=== PATIENT | male | born 1975 | race African-American/Black ===

== ENCOUNTER 2016-10-07 20:20 | Emergency (ER) | payer MEDICAID, OTHER ==
[~2016-10-07] VITALS: Ht 185.4 cm; Wt 220.0 kg
[~2016-10-07 20:20] MED LIST: BENZ1TAB10 PO; DIVA500T52 PO; HALO10 PO; HYDR25TA PO
[2016-10-07 21:12] LABS: BASOPHILS # (AUTO) 0.05 K/uL (0.00-0.20); EOSINOPHILS # (AUTO) 0.14 K/uL (0.00-0.70); EOSINOPHILS % (AUTO) 2.69 % (1.0-6.0); HEMOGLOBIN 14.5 g/dL (13.5-17.5); LYMPHOCYTES # (AUTO) 1.8 K/uL (1.0-4.8); LYMPHOCYTES % (AUTO) 35.8 % (22.0-44.0); MEAN CORPUSCULAR HEMOGLOBIN 29.4 pg (26.0-34.0); MEAN CORPUSCULAR VOLUME 89 fL (80-100); MONOCYTES # (AUTO) 0.3 K/uL (0.1-1.0); MONOCYTES % (AUTO) 5.6 % (2.0-9.0); NEUTROPHILS # (AUTO) 2.8 K/uL (1.8-7.7); NEUTROPHILS % (AUTO) 54.9 % (40.0-70.0); PLATELET COUNT (AUTO) 251 K/uL (150-450); RED BLOOD CELL COUNT(AUTO) 4.93 MIL/uL (4.50-5.90); RED CELL DISTRIBUTION WIDTH 16.2 % (11.5-14.5); WHITE BLOOD COUNT (AUTO) 5.1 K/uL (4.5-11.0)
[2016-10-07 21:28] LABS: ALANINE AMINOTRANSFERASE 25 U/L (12-78); ALBUMIN 3.7 g/dL (3.4-5.0); ANION GAP 11 mmol/L (8-16); ASPARTATE AMINOTRANSFERASE 15 U/L (15-37); BILIRUBIN,TOTAL 0.6 mg/dL (0.1-1.0); CALCIUM, TOTAL 9.4 mg/dL (8.8-10.5); CARBON DIOXIDE 26 mmol/L (22-29); CHLORIDE 107 mmol/L (98-107); CREATININE 1.04 mg/dL (0.60-1.30); GLOMERULAR FILTR. RATE CALC > 60 mL/min (>60); POTASSIUM 4.1 mmol/L (3.5-5.1); SODIUM SERUM 144 mmol/L (136-145); TOTAL PROTEIN, SERUM 7.6 g/dL (6.4-8.2); UREA NITROGEN, BLOOD 12 mg/dL (7-18)
[2016-10-07 21:53] LABS: VALPROIC ACID < 3 mcg/mL (50-100)
[2016-10-07] MEDS ORDERED: HALOPERIDOL 5 MG TABLET PO ONE (23:00)
[2016-10-07 23:56] VITALS: BP 135/74
== END 2016-10-08 00:08 | disposition home or self-care (01) ==
LOC: EMS 20:21
DX: F25.9 Schizoaffective disorder, unspecified (principal); F12.90 Cannabis use, unspecified, uncomplicated; Z91.14 Patient's other noncompliance with medication regimen; Z88.8 Allergy status to other drugs, medicaments and biological substances
CPT/HCPCS: 36415; 80053; 80164; 85025; 99284; G0480

== ENCOUNTER 2017-01-07 10:20 | Emergency (ER) | payer OTHER ==
[~2017-01-07] VITALS: Ht 190.5 cm; Wt 136.4 kg
[2017-01-07 10:30] VITALS: BP 127/53
== END 2017-01-07 11:06 | disposition home or self-care (01) ==
LOC: EMS 10:22
DX: R21 Rash and other nonspecific skin eruption (principal); F12.90 Cannabis use, unspecified, uncomplicated; I10 Essential (primary) hypertension; F17.200 Nicotine dependence, unspecified, uncomplicated; Z88.8 Allergy status to other drugs, medicaments and biological substances
CPT/HCPCS: 99283

== ENCOUNTER 2017-04-09 08:39 | Inpatient (IN) | payer MEDICAID, OTHER ==
[~2017-04-09] VITALS: Ht 190.5 cm; Wt 99.9 kg
[~2017-04-09 08:39] MED LIST changes: +FLUO15CR2 TP; -HYDR25TA PO
[2017-04-09 09:28] LABS: BASOPHILS # (AUTO) 0.03 K/uL (0.00-0.20); BASOPHILS % (AUTO) 0.5 % (0.0-2.0); EOSINOPHILS # (AUTO) 0.05 K/uL (0.00-0.70); EOSINOPHILS % (AUTO) 0.92 % (1.0-6.0); HEMOGLOBIN 13.7 g/dL (13.5-17.5); LYMPHOCYTES # (AUTO) 1.7 K/uL (1.0-4.8); LYMPHOCYTES % (AUTO) 29.9 % (22.0-44.0); MEAN CORPUSCULAR HEMOGLOBIN 31.4 pg (26.0-34.0); MEAN CORPUSCULAR HGB CONC 34.2 G/dL (31.0-37.0); MEAN CORPUSCULAR VOLUME 92 fL (80-100); MONOCYTES # (AUTO) 0.4 K/uL (0.1-1.0); MONOCYTES % (AUTO) 7.1 % (2.0-9.0); NEUTROPHILS # (AUTO) 3.4 K/uL (1.8-7.7); NEUTROPHILS % (AUTO) 61.5 % (40.0-70.0); PLATELET COUNT (AUTO) 269 K/uL (150-450); RED BLOOD CELL COUNT(AUTO) 4.36 MIL/uL (4.50-5.90); RED CELL DISTRIBUTION WIDTH 15.2 % (11.5-14.5); WHITE BLOOD COUNT (AUTO) 5.6 K/uL (4.5-11.0)
[2017-04-09 09:39] LABS: ANION GAP 8 mmol/L (8-16); CALCIUM, TOTAL 9.5 mg/dL (8.8-10.5); CARBON DIOXIDE 28 mmol/L (22-29); CHLORIDE 105 mmol/L (98-107); CREATININE 1.03 mg/dL (0.60-1.30); GLOMERULAR FILTR. RATE CALC > 60 mL/min (>60); SODIUM SERUM 141 mmol/L (136-145); UREA NITROGEN, BLOOD 10 mg/dL (7-18)
[2017-04-09 09:54] LABS: ALANINE AMINOTRANSFERASE 25 U/L (12-78); ALBUMIN 3.9 g/dL (3.4-5.0); ASPARTATE AMINOTRANSFERASE 20 U/L (15-37); BILIRUBIN,TOTAL 0.5 mg/dL (0.1-1.0)
[2017-04-09] MEDS ORDERED: HALOPERIDOL 5 MG TABLET PO ONE ×2 (13:15)
[2017-04-09] MEDS ORDERED: LORazepam 2 MG TABLET PO ONE (13:15)
[2017-04-09] MEDS ORDERED: DiphenhydrAMINE HCL 25 MG CAPSULE PO ONE (13:15)
[2017-04-09] MEDS ORDERED: BENZTROPINE MESYLATE 1 MG TABLET PO ONE (13:15)
[2017-04-09] MEDS ORDERED: BETAMETHASONE VAL 0.1% 15 GM OINTMENT TP ONE (13:15)
[2017-04-09] MEDS ORDERED: SULFAMETHOX/TRIMETH DS 800-160 MG/TABLET PO ONE (13:15)
[2017-04-09] MEDS ORDERED: INFLUENZA VIRUS VACCINE QVS 2017-18 (3YR+)/PF 60 MCG/0.5 ML SYRINGE IM ONE (19:00)
[2017-04-09] MEDS: BENZTROPINE MESYLATE 1 MG TABLET PO SCH (20:52)
[2017-04-09] MEDS: HALOPERIDOL 10 MG TABLET PO SCH (20:52)
[2017-04-09] MEDS: DIVALPROEX SODIUM 500 MG ER TABLET PO SCH (20:52)
[2017-04-09 21:38] VITALS: BP 150/94
[2017-04-09 21:53] VITALS: BP 150/94
[2017-04-10 07:02] LABS: CHOL/HDL RATIO 3.4 (4.2-7.3)
[2017-04-10] MEDS ORDERED: ONDANSETRON HCL 4 MG TABLET PO PRN (07:15)
[2017-04-10] MEDS ORDERED: ACETAMINOPHEN 325 MG TABLET PO PRN (07:15)
[2017-04-10] MEDS ORDERED: CloNIDine HCL 0.1 MG TABLET PO PRN (07:15)
[2017-04-10] MEDS ORDERED: PETROLATUM,WHITE 71 GM JELLY TP PRN (07:15)
[2017-04-10] MEDS ORDERED: IBUPROFEN 600 MG TABLET PO PRN (07:15)
[2017-04-10] MEDS ORDERED: LOPERAMIDE HCL 2 MG CAPSULE PO PRN (07:15)
[2017-04-10] MEDS ORDERED: MAGNESIUM HYDROXIDE SUSPENSION 30 ML UDCUP PO PRN (07:15)
[2017-04-10] MEDS ORDERED: MAG HYDROX/AL HYDROX/SIMETH ES 30 ML SUSPENSION UDCUP PO PRN (07:15)
[2017-04-10] MEDS ORDERED: BACITRACIN 28.4 GM OINTMENT TP PRN (07:15)
[2017-04-10] MEDS ORDERED: ALBUTEROL SULFATE HFA 90 MCG/PUFF 8 GM INHALER IH PRN (07:15)
[2017-04-10] MEDS ORDERED: BENZOCAINE/MENTHOL LOZENGE [8 LOZENGES/PACKET] MM PRN (07:30)
[2017-04-10 08:16] VITALS: BP 120/89
[2017-04-10] MEDS: CHOLECALCIFEROL (VIT D3) 1,000 UNITS TABLET PO SCH (09:42)
[2017-04-10] MEDS: BENZTROPINE MESYLATE 1 MG TABLET PO SCH ×2 (09:43→17:21)
[2017-04-10 16:53] VITALS: BP 132/83
[2017-04-10] MEDS: DIVALPROEX SODIUM 500 MG ER TABLET PO SCH (20:21)
[2017-04-10] MEDS: HALOPERIDOL 10 MG TABLET PO SCH (20:21)
[2017-04-11 08:00] VITALS: BP 150/97
[2017-04-11] MEDS: CHOLECALCIFEROL (VIT D3) 1,000 UNITS TABLET PO SCH (08:57)
[2017-04-11] MEDS: BENZTROPINE MESYLATE 1 MG TABLET PO SCH ×2 (08:57→18:08)
[2017-04-11] MEDS: HALOPERIDOL 5 MG TABLET PO PRN (10:18)
[2017-04-11] MEDS: LORazepam 2 MG TABLET PO PRN (10:18)
[2017-04-11] MEDS: DIVALPROEX SODIUM 500 MG ER TABLET PO SCH (20:17)
[2017-04-11] MEDS: HALOPERIDOL 10 MG TABLET PO SCH (20:17)
[2017-04-12 08:22] VITALS: BP 136/88
[2017-04-12] MEDS: CHOLECALCIFEROL (VIT D3) 1,000 UNITS TABLET PO SCH (08:33)
[2017-04-12] MEDS: BENZTROPINE MESYLATE 1 MG TABLET PO SCH ×2 (08:33→16:39)
[2017-04-12] MEDS: LISINOPRIL 10 MG TABLET PO SCH (08:33)
[2017-04-12] MEDS: NICOTINE 21 MG/24 HOUR PATCH TD SCH (13:03)
[2017-04-12] MEDS: HALOPERIDOL 10 MG TABLET PO SCH (20:09)
[2017-04-12] MEDS: DIVALPROEX SODIUM 500 MG ER TABLET PO SCH (20:10)
[2017-04-12 22:36] VITALS: BP 132/90
[2017-04-12] MEDS: ZOLPIDEM TARTRATE 10 MG TABLET PO PRN (22:45)
[2017-04-13] MEDS: LORazepam 2 MG TABLET PO PRN ×2 (04:03→11:08)
[2017-04-13 09:00] VITALS: BP 135/96
[2017-04-13] MEDS: HYDROCORTISONE 2.5% 30 GM CREAM TP SCH (09:20)
[2017-04-13] MEDS: NICOTINE 21 MG/24 HOUR PATCH TD SCH (09:21)
[2017-04-13] MEDS: LISINOPRIL 10 MG TABLET PO SCH (09:21)
[2017-04-13] MEDS: CHOLECALCIFEROL (VIT D3) 1,000 UNITS TABLET PO SCH (09:21)
[2017-04-13] MEDS: BENZTROPINE MESYLATE 1 MG TABLET PO SCH ×2 (09:21→17:20)
[2017-04-13] MEDS: HALOPERIDOL 5 MG TABLET PO PRN (11:08)
[2017-04-13] MEDS: DIVALPROEX SODIUM 500 MG ER TABLET PO SCH (21:00)
[2017-04-13] MEDS: ZOLPIDEM TARTRATE 10 MG TABLET PO PRN (21:01)
[2017-04-13] MEDS: HALOPERIDOL 10 MG TABLET PO SCH (21:01)
[2017-04-14 08:00] VITALS: BP 123/63
[2017-04-14] MEDS: NICOTINE 21 MG/24 HOUR PATCH TD SCH (08:13)
[2017-04-14] MEDS: HALOPERIDOL 5 MG TABLET PO PRN (08:13)
[2017-04-14] MEDS: LISINOPRIL 10 MG TABLET PO SCH (08:13)
[2017-04-14] MEDS: CHOLECALCIFEROL (VIT D3) 1,000 UNITS TABLET PO SCH (08:13)
[2017-04-14] MEDS: LORazepam 2 MG TABLET PO PRN ×2 (08:13→16:18)
[2017-04-14] MEDS: BENZTROPINE MESYLATE 1 MG TABLET PO SCH ×2 (08:13→16:17)
[2017-04-14] MEDS: HYDROCORTISONE 2.5% 30 GM CREAM TP SCH (08:14)
[2017-04-14 16:40] VITALS: BP 126/77
[2017-04-14] MEDS: DIVALPROEX SODIUM 500 MG ER TABLET PO SCH (20:46)
[2017-04-14] MEDS: HALOPERIDOL 10 MG TABLET PO SCH (20:47)
[2017-04-14] MEDS: ZOLPIDEM TARTRATE 10 MG TABLET PO PRN (21:11)
[2017-04-15 08:00] VITALS: BP 129/96
[2017-04-15] MEDS: BENZTROPINE MESYLATE 1 MG TABLET PO SCH (08:22)
[2017-04-15] MEDS: LISINOPRIL 10 MG TABLET PO SCH (08:23)
[2017-04-15] MEDS: CHOLECALCIFEROL (VIT D3) 1,000 UNITS TABLET PO SCH (08:23)
[2017-04-15] MEDS: NICOTINE 21 MG/24 HOUR PATCH TD SCH (09:00)
[2017-04-15] MEDS: HYDROCORTISONE 2.5% 30 GM CREAM TP SCH (09:00)
[2017-04-15] MEDS ORDERED: HALO10 PO (14:56)
[2017-04-15] MEDS ORDERED: DIVA500T52 PO (14:56)
[2017-04-15] MEDS ORDERED: BENZ1TAB10 PO (14:56)
[2017-04-15] MEDS ORDERED: VITAD1000 PO (15:00)
[2017-04-15] MEDS ORDERED: LISI-661 PO (15:00)
== END 2017-04-15 15:30 | disposition home or self-care (01) | DRG 750 ==
LOC: EEVIPCON 08:41 → EMS 08:41 → 3EC 16:50
DX: F20.0 Paranoid schizophrenia (principal); L03.115 Cellulitis of right lower limb; R45.851 Suicidal ideations; I10 Essential (primary) hypertension; E55.9 Vitamin D deficiency, unspecified; E66.9 Obesity, unspecified; F12.90 Cannabis use, unspecified, uncomplicated; F17.210 Nicotine dependence, cigarettes, uncomplicated; G47.00 Insomnia, unspecified; K21.9 Gastro-esophageal reflux disease without esophagitis; K59.00 Constipation, unspecified; L30.9 Dermatitis, unspecified; Z82.49 Family history of ischemic heart disease and other diseases of the circulatory system; Z91.5 Personal history of self-harm; Z88.8 Allergy status to other drugs, medicaments and biological substances; Z68.27 Body mass index [BMI] 27.0-27.9, adult
CPT/HCPCS: 99285; G0480

== ENCOUNTER 2017-06-06 13:16 | Inpatient (IN) | payer MEDICAID, OTHER ==
[~2017-06-06] VITALS: Ht 190.5 cm; Wt 95.1 kg
[~2017-06-06 13:16] MED LIST changes: -FLUO15CR2 TP; +LISI-661 PO; +VITAD1000 PO
[2017-06-06 13:56] LABS: BASOPHILS # (AUTO) 0.05 K/uL (0.00-0.20); BASOPHILS % (AUTO) 0.9 % (0.0-2.0); EOSINOPHILS # (AUTO) 0.32 K/uL (0.00-0.70); EOSINOPHILS % (AUTO) 6.37 % (1.0-6.0); HEMATOCRIT 46.7 % (41-53); HEMOGLOBIN 15.7 g/dL (13.5-17.5); LYMPHOCYTES # (AUTO) 2.7 K/uL (1.0-4.8); LYMPHOCYTES % (AUTO) 52.1 % (22.0-44.0); MEAN CORPUSCULAR HEMOGLOBIN 30.8 pg (26.0-34.0); MEAN CORPUSCULAR HGB CONC 33.7 G/dL (31.0-37.0); MEAN CORPUSCULAR VOLUME 91 fL (80-100); MONOCYTES # (AUTO) 0.5 K/uL (0.1-1.0); MONOCYTES % (AUTO) 9.4 % (2.0-9.0); NEUTROPHILS # (AUTO) 1.6 K/uL (1.8-7.7); NEUTROPHILS % (AUTO) 31.2 % (40.0-70.0); PLATELET COUNT (AUTO) 301 K/uL (150-450); RED BLOOD CELL COUNT(AUTO) 5.11 MIL/uL (4.50-5.90); RED CELL DISTRIBUTION WIDTH 14.4 % (11.5-14.5); WHITE BLOOD COUNT (AUTO) 5.1 K/uL (4.5-11.0)
[2017-06-06 14:06] LABS: ANION GAP 9 mmol/L (8-16); CALCIUM, TOTAL 9.5 mg/dL (8.8-10.5); CARBON DIOXIDE 28 mmol/L (22-29); CHLORIDE 103 mmol/L (98-107); CREATININE 0.96 mg/dL (0.60-1.30); GLOMERULAR FILTR. RATE CALC > 60 mL/min (>60); POTASSIUM 3.8 mmol/L (3.5-5.1); SODIUM SERUM 140 mmol/L (136-145); UREA NITROGEN, BLOOD 8 mg/dL (7-18)
[2017-06-06 14:20] LABS: ALANINE AMINOTRANSFERASE 22 U/L (12-78); ALBUMIN 3.6 g/dL (3.4-5.0); ASPARTATE AMINOTRANSFERASE 18 U/L (15-37); BILIRUBIN,TOTAL 0.5 mg/dL (0.1-1.0); TOTAL PROTEIN, SERUM 7.4 g/dL (6.4-8.2)
[2017-06-06 14:31] LABS: VALPROIC ACID < 3 mcg/mL (50-100)
[2017-06-06] MEDS ORDERED: TRAZ-144 PO (15:04)
[2017-06-06] MEDS ORDERED: PALI1.5T PO (15:04)
[2017-06-06] MEDS ORDERED: LORazepam 2 MG TABLET PO ONE (15:45)
[2017-06-06] MEDS ORDERED: HALOPERIDOL 5 MG TABLET PO ONE (15:45)
[2017-06-06] MEDS ORDERED: LORazepam 2 MG TABLET PO PRN (16:45)
[2017-06-06] MEDS ORDERED: ZOLPIDEM TARTRATE 10 MG TABLET PO PRN (16:45)
[2017-06-06] MEDS ORDERED: HALOPERIDOL 5 MG TABLET PO PRN (16:45)
[2017-06-06] MEDS ORDERED: AmLODIPine BESYLATE 5 MG TABLET PO ONE (17:00)
[2017-06-06 20:36] VITALS: BP 148/98
[2017-06-06] MEDS ORDERED: CloNIDine HCL 0.1 MG TABLET PO PRN (21:15)
[2017-06-07 06:30] LABS: BASOPHILS % (AUTO) 1.4 % (0.0-2.0); EOSINOPHILS % (AUTO) 6.4 % (1.0-6.0); HEMATOCRIT 45.5 % (41-53); HEMOGLOBIN 15.6 g/dL (13.5-17.5); LYMPHOCYTES # (AUTO) 1.9 K/uL (1.0-4.8); LYMPHOCYTES % (AUTO) 41.8 % (22.0-44.0); MEAN CORPUSCULAR HEMOGLOBIN 31.3 pg (26.0-34.0); MEAN CORPUSCULAR HGB CONC 34.2 G/dL (31.0-37.0); MEAN CORPUSCULAR VOLUME 91 fL (80-100); MONOCYTES # (AUTO) 0.4 K/uL (0.1-1.0); MONOCYTES % (AUTO) 9.5 % (2.0-9.0); NEUTROPHILS # (AUTO) 1.8 K/uL (1.8-7.7); NEUTROPHILS % (AUTO) 40.9 % (40.0-70.0); PLATELET COUNT (AUTO) 283 K/uL (150-450); RED BLOOD CELL COUNT(AUTO) 4.98 MIL/uL (4.50-5.90); RED CELL DISTRIBUTION WIDTH 14.3 % (11.5-14.5); WHITE BLOOD COUNT (AUTO) 4.5 K/uL (4.5-11.0)
[2017-06-07 07:37] LABS: ALANINE AMINOTRANSFERASE 9 U/L (12-78); ALBUMIN 3.1 g/dL (3.4-5.0); ANION GAP 8 mmol/L (8-16); ASPARTATE AMINOTRANSFERASE 16 U/L (15-37); BILIRUBIN,TOTAL 0.6 mg/dL (0.1-1.0); CALCIUM, TOTAL 9.3 mg/dL (8.8-10.5); CARBON DIOXIDE 28 mmol/L (22-29); CHLORIDE 107 mmol/L (98-107); CREATININE 0.99 mg/dL (0.60-1.30); GLOMERULAR FILTR. RATE CALC > 60 mL/min (>60); SODIUM SERUM 143 mmol/L (136-145); THYROID STIMULATING HORMONE 1.37 uIU/mL (0.36-3.74); TOTAL PROTEIN, SERUM 6.7 g/dL (6.4-8.2); UREA NITROGEN, BLOOD 10 mg/dL (7-18)
[2017-06-07 08:34] VITALS: BP 152/95
[2017-06-07] MEDS ORDERED: LISINOPRIL 10 MG TABLET PO SCH (09:00)
[2017-06-07] MEDS ORDERED: BACITRACIN 28.4 GM OINTMENT TP PRN (10:30)
[2017-06-07] MEDS ORDERED: PETROLATUM,WHITE 71 GM JELLY TP PRN (10:30)
[2017-06-07] MEDS ORDERED: MAG HYDROX/AL HYDROX/SIMETH ES 30 ML SUSPENSION UDCUP PO PRN (10:30)
[2017-06-07] MEDS ORDERED: MAGNESIUM HYDROXIDE SUSPENSION 30 ML UDCUP PO PRN (10:30)
[2017-06-07] MEDS ORDERED: BENZOCAINE/MENTHOL LOZENGE MM PRN (10:30)
[2017-06-07] MEDS ORDERED: ACETAMINOPHEN 325 MG TABLET PO PRN (10:30)
[2017-06-07] MEDS ORDERED: ALBUTEROL SULFATE HFA 90 MCG/PUFF 8 GM INHALER IH PRN (10:30)
[2017-06-07] MEDS ORDERED: LOPERAMIDE HCL 2 MG CAPSULE PO PRN (10:30)
[2017-06-07] MEDS ORDERED: IBUPROFEN 600 MG TABLET PO PRN (10:30)
[2017-06-07] MEDS ORDERED: ONDANSETRON HCL 4 MG TABLET PO PRN (10:30)
[2017-06-07] MEDS ORDERED: BENZOCAINE/MENTHOL LOZENGE [8 LOZENGES/PACKET] MM PRN (10:45)
[2017-06-07] MEDS: BENZTROPINE MESYLATE 1 MG TABLET PO SCH (17:48)
[2017-06-07] MEDS: DIVALPROEX SODIUM 500 MG ER TABLET PO SCH (20:42)
[2017-06-07] MEDS: HALOPERIDOL 10 MG TABLET PO SCH (20:42)
[2017-06-07 21:02] VITALS: BP 149/98
[2017-06-08 08:23] VITALS: BP 113/85
[2017-06-08] MEDS: BENZTROPINE MESYLATE 1 MG TABLET PO SCH ×2 (09:43→18:05)
[2017-06-08] MEDS: LISINOPRIL 20 MG TABLET PO SCH (09:44)
[2017-06-08 18:00] VITALS: BP 141/75
[2017-06-08] MEDS: DIVALPROEX SODIUM 500 MG ER TABLET PO SCH (20:59)
[2017-06-08] MEDS: HALOPERIDOL 10 MG TABLET PO SCH (20:59)
[2017-06-09 08:30] VITALS: BP 130/96
[2017-06-09] MEDS: BENZTROPINE MESYLATE 1 MG TABLET PO SCH ×2 (09:34→16:22)
[2017-06-09] MEDS: LISINOPRIL 20 MG TABLET PO SCH (09:34)
[2017-06-09 18:19] VITALS: BP 110/77
[2017-06-09] MEDS: HALOPERIDOL 10 MG TABLET PO SCH (21:24)
[2017-06-09] MEDS: DIVALPROEX SODIUM 500 MG ER TABLET PO SCH (21:24)
[2017-06-10 08:25] VITALS: BP 122/79
[2017-06-10] MEDS: BENZTROPINE MESYLATE 1 MG TABLET PO SCH (09:22)
[2017-06-10] MEDS: LISINOPRIL 20 MG TABLET PO SCH (09:22)
[2017-06-10] MEDS ORDERED: LISI-662 PO (12:15)
[2017-06-10] MEDS ORDERED: DIVA500T35 PO (13:59)
[2017-06-10] MEDS ORDERED: MINERAL OIL/PETROLATUM 120 GM CREAM TP SCH (16:00)
== END 2017-06-10 14:30 | disposition home or self-care (01) | DRG 750 ==
LOC: EMS 13:17 → 3EC 19:08
PROVIDERS: ADMIT Psychiatry & Neurology Child & Adolescent Psychiatry; ATTEND Psychiatry & Neurology Child & Adolescent Psychiatry
DX: F20.0 Paranoid schizophrenia (principal); Z91.14 Patient's other noncompliance with medication regimen; I10 Essential (primary) hypertension; E55.9 Vitamin D deficiency, unspecified; F17.200 Nicotine dependence, unspecified, uncomplicated; G47.00 Insomnia, unspecified; K21.9 Gastro-esophageal reflux disease without esophagitis; K59.00 Constipation, unspecified; F12.10 Cannabis abuse, uncomplicated; Z88.8 Allergy status to other drugs, medicaments and biological substances; Z79.899 Other long term (current) drug therapy
CPT/HCPCS: 84439; 84443; 99285; 99406; G0480

== ENCOUNTER 2017-10-01 17:26 | Inpatient (IN) | payer MEDICAID, OTHER ==
[~2017-10-01] VITALS: Ht 188 cm; Wt 85.4 kg
[~2017-10-01 17:26] MED LIST changes: +BACI120O TP; +BENZ0.5T44 PO; -BENZ1TAB10 PO; -LISI-661 PO; +LISI-662 PO; +NALT50TA PO; -VITAD1000 PO
[2017-10-01 19:01] LABS: EOSINOPHILS % (AUTO) 7.5 % (1.0-6.0); HEMATOCRIT 43.4 % (41-53); HEMOGLOBIN 14.7 g/dL (13.5-17.5); LYMPHOCYTES # (AUTO) 2.1 K/uL (1.0-4.8); LYMPHOCYTES % (AUTO) 33.1 % (22.0-44.0); MEAN CORPUSCULAR HEMOGLOBIN 30.7 pg (26.0-34.0); MEAN CORPUSCULAR VOLUME 90 fL (80-100); MONOCYTES # (AUTO) 0.7 K/uL (0.1-1.0); MONOCYTES % (AUTO) 10.9 % (2.0-9.0); NEUTROPHILS % (AUTO) 47.5 % (40.0-70.0); PLATELET COUNT (AUTO) 286 K/uL (150-450); RED CELL DISTRIBUTION WIDTH 13.8 % (11.5-14.5)
[2017-10-01 19:10] LABS: ANION GAP 5 mmol/L (8-16); CALCIUM, TOTAL 9.5 mg/dL (8.8-10.5); CARBON DIOXIDE 30 mmol/L (22-29); CHLORIDE 104 mmol/L (98-107); GLOMERULAR FILTR. RATE CALC > 60 mL/min (>60); GLUCOSE,RANDOM 96 mg/dL (70-110); POTASSIUM 4.5 mmol/L (3.5-5.1); SODIUM SERUM 139 mmol/L (136-145); UREA NITROGEN, BLOOD 10 mg/dL (7-18)
[2017-10-01] MEDS ORDERED: LORazepam 2 MG/ML VIAL IM ONE (19:15)
[2017-10-01] MEDS ORDERED: HALOPERIDOL LACTATE 5 MG/ML VIAL IM ONE (19:15)
[2017-10-01] MEDS ORDERED: DiphenhydrAMINE HCL 50 MG/ML VIAL IM ONE (19:15)
[2017-10-01 19:17] LABS: ALANINE AMINOTRANSFERASE 24 U/L (12-78); ALBUMIN 3.2 g/dL (3.4-5.0); ALKALINE PHOSPHATASE 68 U/L (46-116); ASPARTATE AMINOTRANSFERASE 26 U/L (15-37); BILIRUBIN,TOTAL 0.5 mg/dL (0.1-1.0); TOTAL PROTEIN, SERUM 7.5 g/dL (6.4-8.2)
[2017-10-02 00:20] VITALS: BP 170/116
[2017-10-02 01:30] VITALS: BP 135/85
[2017-10-02 08:12] VITALS: BP 144/90
[2017-10-02 09:12] LABS: CHOL/HDL RATIO 3.1 (4.2-7.3)
[2017-10-02] MEDS: MULTIVITAMINS WITH MINERALS, THERAPEUTIC TABLET PO SCH (09:26)
[2017-10-02] MEDS: LISINOPRIL 20 MG TABLET PO SCH (09:26)
[2017-10-02] MEDS: BENZTROPINE MESYLATE 0.5 MG TABLET PO SCH ×2 (13:01→18:07)
[2017-10-02 20:11] VITALS: BP 143/88
[2017-10-02] MEDS: HALOPERIDOL 10 MG TABLET PO SCH (21:07)
[2017-10-02] MEDS: DIVALPROEX SODIUM 500 MG ER TABLET PO SCH (21:07)
[2017-10-03 08:00] VITALS: BP 126/95
[2017-10-03] MEDS: MULTIVITAMINS WITH MINERALS, THERAPEUTIC TABLET PO SCH (08:22)
[2017-10-03] MEDS: LISINOPRIL 20 MG TABLET PO SCH (08:22)
[2017-10-03] MEDS: CHOLECALCIFEROL (VIT D3) 1,000 UNITS TABLET PO SCH (08:22)
[2017-10-03] MEDS: BENZTROPINE MESYLATE 0.5 MG TABLET PO SCH ×3 (08:22→16:44)
[2017-10-03] MEDS ORDERED: ONDANSETRON HCL 4 MG TABLET PO PRN (14:45)
[2017-10-03] MEDS ORDERED: ACETAMINOPHEN 325 MG TABLET PO PRN (14:45)
[2017-10-03] MEDS: IBUPROFEN 600 MG TABLET PO PRN (14:49)
[2017-10-03] MEDS: DIVALPROEX SODIUM 500 MG ER TABLET PO SCH (20:18)
[2017-10-03] MEDS: HALOPERIDOL 10 MG TABLET PO SCH (20:18)
[2017-10-04 08:16] VITALS: BP 143/95
[2017-10-04] MEDS: MULTIVITAMINS WITH MINERALS, THERAPEUTIC TABLET PO SCH (08:43)
[2017-10-04] MEDS: LISINOPRIL 20 MG TABLET PO SCH (08:46)
[2017-10-04] MEDS: BENZTROPINE MESYLATE 0.5 MG TABLET PO SCH ×3 (08:46→17:10)
[2017-10-04] MEDS: CHOLECALCIFEROL (VIT D3) 1,000 UNITS TABLET PO SCH (09:41)
[2017-10-04] MEDS: LORazepam 2 MG TABLET PO PRN ×2 (12:32→19:50)
[2017-10-04] MEDS: HALOPERIDOL 5 MG TABLET PO PRN (12:33)
[2017-10-04 19:46] VITALS: BP 120/96
[2017-10-04] MEDS: DIVALPROEX SODIUM 500 MG ER TABLET PO SCH (20:40)
[2017-10-04] MEDS: HALOPERIDOL 10 MG TABLET PO SCH (20:40)
[2017-10-05 08:21] VITALS: BP 112/75
[2017-10-05] MEDS: MULTIVITAMINS WITH MINERALS, THERAPEUTIC TABLET PO SCH (08:26)
[2017-10-05] MEDS: LISINOPRIL 20 MG TABLET PO SCH (08:27)
[2017-10-05] MEDS: LORazepam 2 MG TABLET PO PRN (08:28)
[2017-10-05] MEDS: HALOPERIDOL 5 MG TABLET PO PRN (08:28)
[2017-10-05] MEDS: BENZTROPINE MESYLATE 0.5 MG TABLET PO SCH ×3 (08:29→16:22)
[2017-10-05] MEDS: CHOLECALCIFEROL (VIT D3) 1,000 UNITS TABLET PO SCH (08:54)
[2017-10-05] MEDS: DIVALPROEX SODIUM 500 MG ER TABLET PO SCH (20:02)
[2017-10-05] MEDS: HALOPERIDOL 10 MG TABLET PO SCH (20:03)
[2017-10-05] MEDS: ZOLPIDEM TARTRATE 10 MG TABLET PO PRN (20:42)
[2017-10-06 08:26] VITALS: BP 135/79
[2017-10-06] MEDS: BENZTROPINE MESYLATE 0.5 MG TABLET PO SCH ×3 (09:41→16:29)
[2017-10-06] MEDS: CHOLECALCIFEROL (VIT D3) 1,000 UNITS TABLET PO SCH (09:41)
[2017-10-06] MEDS: MULTIVITAMINS WITH MINERALS, THERAPEUTIC TABLET PO SCH (09:41)
[2017-10-06] MEDS: LISINOPRIL 20 MG TABLET PO SCH (09:41)
[2017-10-06] MEDS: IBUPROFEN 600 MG TABLET PO PRN (12:23)
[2017-10-06] MEDS: LORazepam 2 MG TABLET PO PRN (13:39)
[2017-10-06] MEDS: HALOPERIDOL 5 MG TABLET PO PRN (13:39)
[2017-10-06 16:14] VITALS: BP 136/111
[2017-10-06] MEDS: DIVALPROEX SODIUM 500 MG ER TABLET PO SCH (20:34)
[2017-10-06] MEDS: HALOPERIDOL 10 MG TABLET PO SCH (20:34)
[2017-10-07 08:05] VITALS: BP 126/70
[2017-10-07] MEDS: BENZTROPINE MESYLATE 0.5 MG TABLET PO SCH ×3 (08:18→16:28)
[2017-10-07] MEDS: LISINOPRIL 20 MG TABLET PO SCH (08:18)
[2017-10-07] MEDS: MULTIVITAMINS WITH MINERALS, THERAPEUTIC TABLET PO SCH (08:18)
[2017-10-07] MEDS: CHOLECALCIFEROL (VIT D3) 1,000 UNITS TABLET PO SCH (08:18)
[2017-10-07] MEDS ORDERED: MINE454C11 TP (12:08)
[2017-10-07] MEDS ORDERED: CHOL200016 PO (12:08)
[2017-10-07] MEDS: LORazepam 2 MG TABLET PO PRN (13:10)
[2017-10-07] MEDS: HALOPERIDOL 5 MG TABLET PO PRN (13:10)
[2017-10-07 16:00] VITALS: BP 115/68
[2017-10-07] MEDS: MINERAL OIL/PETROLATUM 120 GM CREAM TP SCH (17:00)
[2017-10-07 19:15] VITALS: BP 124/72
[2017-10-07] MEDS: IBUPROFEN 600 MG TABLET PO PRN (19:18)
[2017-10-07] MEDS: HALOPERIDOL 10 MG TABLET PO SCH (20:16)
[2017-10-07] MEDS: DIVALPROEX SODIUM 500 MG ER TABLET PO SCH (20:16)
[2017-10-07] MEDS: ZOLPIDEM TARTRATE 10 MG TABLET PO PRN (22:26)
[2017-10-08] MEDS: MULTIVITAMINS WITH MINERALS, THERAPEUTIC TABLET PO SCH (08:35)
[2017-10-08] MEDS: BENZTROPINE MESYLATE 0.5 MG TABLET PO SCH ×3 (08:35→16:15)
[2017-10-08] MEDS: LISINOPRIL 20 MG TABLET PO SCH (08:36)
[2017-10-08] MEDS: CHOLECALCIFEROL (VIT D3) 1,000 UNITS TABLET PO SCH (08:36)
[2017-10-08 09:37] VITALS: BP 122/61
[2017-10-08] MEDS: HALOPERIDOL 5 MG TABLET PO PRN (11:45)
[2017-10-08] MEDS: LORazepam 2 MG TABLET PO PRN (11:46)
[2017-10-08] MEDS: MINERAL OIL/PETROLATUM 120 GM CREAM TP SCH ×2 (13:13→16:15)
[2017-10-08 16:28] VITALS: BP 125/75
[2017-10-08] MEDS: HALOPERIDOL 10 MG TABLET PO SCH (20:35)
[2017-10-08] MEDS: DIVALPROEX SODIUM 500 MG ER TABLET PO SCH (20:35)
[2017-10-08] MEDS: ZOLPIDEM TARTRATE 10 MG TABLET PO PRN (20:45)
[2017-10-09] MEDS ORDERED: HALO10 PO (07:51)
[2017-10-09] MEDS ORDERED: DIVA500T52 PO (07:51)
[2017-10-09] MEDS ORDERED: BENZ0.5T44 PO (07:51)
[2017-10-09 08:16] VITALS: BP 134/82
[2017-10-09] MEDS: MULTIVITAMINS WITH MINERALS, THERAPEUTIC TABLET PO SCH (08:37)
[2017-10-09] MEDS: LISINOPRIL 20 MG TABLET PO SCH (08:37)
[2017-10-09] MEDS: BENZTROPINE MESYLATE 0.5 MG TABLET PO SCH ×2 (08:37→13:32)
[2017-10-09] MEDS: CHOLECALCIFEROL (VIT D3) 1,000 UNITS TABLET PO SCH (08:37)
[2017-10-09] MEDS: MINERAL OIL/PETROLATUM 120 GM CREAM TP SCH (09:30)
[2017-10-09] MEDS: LORazepam 2 MG TABLET PO PRN (10:54)
== END 2017-10-09 14:45 | disposition home or self-care (01) | DRG 750 ==
LOC: EMS 17:27 → EEVIPCON 17:27 → 3EC 23:00
DX: F20.0 Paranoid schizophrenia (principal); R45.851 Suicidal ideations; I10 Essential (primary) hypertension; L84 Corns and callosities; F12.90 Cannabis use, unspecified, uncomplicated; Z79.899 Other long term (current) drug therapy; Z87.891 Personal history of nicotine dependence; Z91.5 Personal history of self-harm
CPT/HCPCS: 82652; 96372; 99291; G0480; J1200; J1630; J2060; Q0162

== ENCOUNTER 2018-06-10 10:35 | Inpatient (IN) | payer MEDICAID ==
[~2018-06-10] VITALS: Ht 190.5 cm; Wt 98.6 kg
[~2018-06-10 10:35] MED LIST changes: -BACI120O TP; +CHOL200059 PO; +MINE454C11 TP; -NALT50TA PO
[2018-06-10] MEDS ORDERED: DiphenhydrAMINE HCL 50 MG/ML VIAL IM ONE ×2 (11:30→12:30)
[2018-06-10] MEDS ORDERED: HALOPERIDOL LACTATE 5 MG/ML VIAL IM ONE ×2 (11:30→12:30)
[2018-06-10] MEDS ORDERED: LORazepam 2 MG/ML VIAL IM ONE ×2 (11:30→12:30)
[2018-06-10] MEDS ORDERED: DiphenhydrAMINE HCL 50 MG/ML VIAL ONE (11:39)
[2018-06-10] MEDS ORDERED: HALOPERIDOL LACTATE 5 MG/ML VIAL ONE (11:39)
[2018-06-10] MEDS ORDERED: LORazepam 2 MG/ML VIAL ONE (11:39)
[2018-06-10] MEDS ORDERED: DIVA500T52 PO (12:43)
[2018-06-10] MEDS ORDERED: BENZ0.5T44 PO (12:43)
[2018-06-10] MEDS ORDERED: HALO10 PO (12:43)
[2018-06-10 13:43] VITALS: BP 114/55
[2018-06-10] MEDS ORDERED: CloNIDine HCL 0.1 MG TABLET PO PRN (16:00)
[2018-06-10] MEDS ORDERED: LOPERAMIDE HCL 2 MG CAPSULE PO PRN (16:00)
[2018-06-10] MEDS ORDERED: ONDANSETRON HCL 4 MG TABLET PO PRN (16:00)
[2018-06-10] MEDS ORDERED: MAGNESIUM HYDROXIDE SUSPENSION 30 ML UDCUP PO PRN (16:00)
[2018-06-10] MEDS ORDERED: IBUPROFEN 400 MG TABLET PO PRN (16:00)
[2018-06-10] MEDS ORDERED: ALBUTEROL SULFATE HFA 90 MCG/PUFF 8 GM INHALER IH PRN (16:00)
[2018-06-10] MEDS ORDERED: GuaiFENesin/D-METHORPHAN [SUGAR-FREE] 200-20MG/10 ML SYRUP UDCUP PO PRN (16:00)
[2018-06-10] MEDS ORDERED: DOCUSATE SODIUM 100 MG CAPSULE PO PRN (16:00)
[2018-06-10] MEDS ORDERED: ACETAMINOPHEN 325 MG TABLET PO PRN (16:00)
[2018-06-10] MEDS ORDERED: MAG HYDROX/AL HYDROX/SIMETH ES 30 ML SUSPENSION UDCUP PO PRN (16:00)
[2018-06-10] MEDS ORDERED: PETROLATUM,WHITE 71 GM JELLY TP PRN (16:00)
[2018-06-10] MEDS: BENZTROPINE MESYLATE 1 MG TABLET PO SCH (17:00)
[2018-06-10] MEDS: DIVALPROEX SODIUM 500 MG ER TABLET PO SCH (20:05)
[2018-06-10] MEDS: HALOPERIDOL 10 MG TABLET PO SCH (20:06)
[2018-06-11 06:23] VITALS: BP 125/71
[2018-06-11 08:38] VITALS: BP 145/89
[2018-06-11] MEDS: LORazepam 2 MG TABLET PO PRN ×2 (08:58→17:07)
[2018-06-11] MEDS: HALOPERIDOL 5 MG TABLET PO PRN (08:58)
[2018-06-11] MEDS: BENZTROPINE MESYLATE 1 MG TABLET PO SCH ×2 (08:58→17:06)
[2018-06-11 09:22] LABS: BASOPHILS % (AUTO) 0.7 % (0.0-2.0); EOSINOPHILS % (AUTO) 4.9 % (1.0-6.0); HEMATOCRIT 42.4 % (41-53); HEMOGLOBIN 14.2 g/dL (13.5-17.5); LYMPHOCYTES # (AUTO) 1.2 K/uL (1.0-4.8); LYMPHOCYTES % (AUTO) 29.6 % (22.0-44.0); MEAN CORPUSCULAR HEMOGLOBIN 30.9 pg (26.0-34.0); MEAN CORPUSCULAR HGB CONC 33.5 G/dL (31.0-37.0); MEAN CORPUSCULAR VOLUME 92 fL (80-100); MONOCYTES # (AUTO) 0.5 K/uL (0.1-1.0); MONOCYTES % (AUTO) 11.8 % (2.0-9.0); NEUTROPHILS # (AUTO) 2.1 K/uL (1.8-7.7); PLATELET COUNT (AUTO) 255 K/uL (150-450); RED CELL DISTRIBUTION WIDTH 15.2 % (11.5-14.5)
[2018-06-11 09:48] LABS: ALANINE AMINOTRANSFERASE 26 U/L (12-78); ALBUMIN 3.1 g/dL (3.4-5.0); ALKALINE PHOSPHATASE 81 U/L (46-116); ANION GAP 6 mmol/L (8-16); ASPARTATE AMINOTRANSFERASE 22 U/L (15-37); BILIRUBIN,TOTAL 0.4 mg/dL (0.1-1.0); CALCIUM, TOTAL 8.2 mg/dL (8.8-10.5); CARBON DIOXIDE 29 mmol/L (22-29); CHLORIDE 105 mmol/L (98-107); CHOL/HDL RATIO 2.5 (4.2-7.3); CHOLESTEROL 109 mg/dL (131-200); CREATININE 1.07 mg/dL (0.60-1.30); FREE T4 (FREE THYROXINE) 1.12 ng/dL (0.76-1.46); GLOMERULAR FILTR. RATE CALC > 60 mL/min (>60); GLUCOSE,RANDOM 123 mg/dL (70-110); HDL CHOLESTEROL 43 mg/dL (40-60); LDL CHOL (CALC.) 59 mg/dL (0-130); POTASSIUM 4.1 mmol/L (3.5-5.1); SODIUM SERUM 140 mmol/L (136-145); THYROID STIMULATING HORMONE 0.43 uIU/mL (0.36-3.74); TOTAL PROTEIN, SERUM 6.4 g/dL (6.4-8.2); TRIGLYCERIDES 36 mg/dL (15-150); UREA NITROGEN, BLOOD 13 mg/dL (7-18); VALPROIC ACID 54 mcg/mL (50-100)
[2018-06-11 16:00] VITALS: BP 114/70
[2018-06-11] MEDS: MINERAL OIL/PETROLATUM 120 GM CREAM TP SCH (17:00)
[2018-06-11] MEDS: HALOPERIDOL 10 MG TABLET PO SCH (20:31)
[2018-06-11] MEDS: DIVALPROEX SODIUM 500 MG ER TABLET PO SCH (20:31)
[2018-06-12 06:07] VITALS: BP 117/77
[2018-06-12 08:08] VITALS: BP 116/74
[2018-06-12] MEDS: LISINOPRIL 20 MG TABLET PO SCH (08:23)
[2018-06-12] MEDS: BENZTROPINE MESYLATE 1 MG TABLET PO SCH ×2 (08:23→16:50)
[2018-06-12] MEDS: CHOLECALCIFEROL (VIT D3) 2,000 UNITS TABLET PO SCH (08:23)
[2018-06-12] MEDS: MINERAL OIL/PETROLATUM 120 GM CREAM TP SCH ×2 (09:00→16:50)
[2018-06-12] MEDS: LORazepam 2 MG TABLET PO PRN ×2 (09:45→16:50)
[2018-06-12 16:00] VITALS: BP 124/78
[2018-06-12] MEDS: DIVALPROEX SODIUM 500 MG ER TABLET PO SCH (20:23)
[2018-06-12] MEDS: HALOPERIDOL 10 MG TABLET PO SCH (20:23)
[2018-06-13 05:46] VITALS: BP 118/68
[2018-06-13] MEDS: BENZTROPINE MESYLATE 1 MG TABLET PO SCH ×2 (08:16→16:32)
[2018-06-13] MEDS: CHOLECALCIFEROL (VIT D3) 2,000 UNITS TABLET PO SCH (08:16)
[2018-06-13] MEDS: MINERAL OIL/PETROLATUM 120 GM CREAM TP SCH ×2 (08:17→16:32)
[2018-06-13] MEDS: LISINOPRIL 20 MG TABLET PO SCH (08:24)
[2018-06-13 09:05] VITALS: BP 106/62
[2018-06-13] MEDS: LORazepam 2 MG TABLET PO PRN ×2 (13:08→17:08)
[2018-06-13] MEDS: HALOPERIDOL 5 MG TABLET PO PRN (16:31)
[2018-06-13 17:18] VITALS: BP 118/70
[2018-06-13] MEDS: DIVALPROEX SODIUM 500 MG ER TABLET PO SCH (20:46)
[2018-06-13] MEDS: HALOPERIDOL 10 MG TABLET PO SCH (20:46)
[2018-06-14] MEDS: ZOLPIDEM TARTRATE 10 MG TABLET PO PRN (00:56)
[2018-06-14] MEDS: LORazepam 2 MG TABLET PO PRN (00:56)
[2018-06-14 00:58] VITALS: BP 125/63
[2018-06-14] MEDS: LISINOPRIL 20 MG TABLET PO SCH (08:02)
[2018-06-14] MEDS: CHOLECALCIFEROL (VIT D3) 2,000 UNITS TABLET PO SCH (08:03)
[2018-06-14] MEDS: BENZTROPINE MESYLATE 1 MG TABLET PO SCH ×2 (08:03→16:54)
[2018-06-14] MEDS: MINERAL OIL/PETROLATUM 120 GM CREAM TP SCH ×2 (08:03→16:54)
[2018-06-14 08:08] VITALS: BP 129/90
[2018-06-14 08:24] LABS: BASOPHILS % (AUTO) 0.5 % (0.0-2.0); EOSINOPHILS % (AUTO) 2.2 % (1.0-6.0); HEMATOCRIT 44.7 % (41-53); HEMOGLOBIN 15.1 g/dL (13.5-17.5); LYMPHOCYTES # (AUTO) 1.9 K/uL (1.0-4.8); LYMPHOCYTES % (AUTO) 57.3 % (22.0-44.0); MEAN CORPUSCULAR HGB CONC 33.8 G/dL (31.0-37.0); MEAN CORPUSCULAR VOLUME 92 fL (80-100); MONOCYTES # (AUTO) 0.4 K/uL (0.1-1.0); MONOCYTES % (AUTO) 12.8 % (2.0-9.0); NEUTROPHILS # (AUTO) 0.9 K/uL (1.8-7.7); NEUTROPHILS % (AUTO) 27.2 % (40.0-70.0); PLATELET COUNT (AUTO) 256 K/uL (150-450); RED BLOOD CELL COUNT(AUTO) 4.87 MIL/uL (4.50-5.90)
[2018-06-14 16:55] VITALS: BP 114/78
[2018-06-14] MEDS: DIVALPROEX SODIUM 500 MG ER TABLET PO SCH (20:44)
[2018-06-14] MEDS: HALOPERIDOL 10 MG TABLET PO SCH (20:44)
[2018-06-15 00:02] VITALS: BP 121/74
[2018-06-15] MEDS: ZOLPIDEM TARTRATE 10 MG TABLET PO PRN (00:06)
[2018-06-15] MEDS: LORazepam 2 MG TABLET PO PRN ×3 (00:06→12:41)
[2018-06-15 08:09] VITALS: BP 113/68
[2018-06-15] MEDS: CHOLECALCIFEROL (VIT D3) 2,000 UNITS TABLET PO SCH (08:19)
[2018-06-15] MEDS: BENZTROPINE MESYLATE 1 MG TABLET PO SCH ×2 (08:19→16:42)
[2018-06-15] MEDS: LISINOPRIL 20 MG TABLET PO SCH (08:19)
[2018-06-15] MEDS: HALOPERIDOL 5 MG TABLET PO PRN ×2 (08:24→12:41)
[2018-06-15] MEDS: MINERAL OIL/PETROLATUM 120 GM CREAM TP SCH ×2 (10:48→16:42)
[2018-06-15] MEDS: NICOTINE 14 MG/24 HOUR PATCH TD PRN (13:28)
[2018-06-15 16:00] VITALS: BP 116/67
[2018-06-15] MEDS: DIVALPROEX SODIUM 500 MG ER TABLET PO SCH (20:14)
[2018-06-15] MEDS: HALOPERIDOL 10 MG TABLET PO SCH (21:05)
[2018-06-16 00:17] VITALS: BP 123/72
[2018-06-16] MEDS: LORazepam 2 MG TABLET PO PRN ×4 (00:22→16:18)
[2018-06-16] MEDS: ZOLPIDEM TARTRATE 10 MG TABLET PO PRN (00:22)
[2018-06-16] MEDS: HALOPERIDOL 5 MG TABLET PO PRN (05:51)
[2018-06-16 08:17] VITALS: BP 131/85
[2018-06-16] MEDS: LISINOPRIL 20 MG TABLET PO SCH (08:23)
[2018-06-16] MEDS: CHOLECALCIFEROL (VIT D3) 2,000 UNITS TABLET PO SCH (08:23)
[2018-06-16] MEDS: BENZTROPINE MESYLATE 1 MG TABLET PO SCH ×2 (08:23→16:18)
[2018-06-16] MEDS: FOLIC ACID 1 MG TABLET PO SCH (08:23)
[2018-06-16] MEDS: MINERAL OIL/PETROLATUM 120 GM CREAM TP SCH ×2 (08:24→16:18)
[2018-06-16 16:00] VITALS: BP 122/84
[2018-06-16] MEDS: HALOPERIDOL 10 MG TABLET PO SCH (20:05)
[2018-06-16] MEDS: DIVALPROEX SODIUM 500 MG ER TABLET PO SCH (20:05)
[2018-06-17 01:45] VITALS: BP 117/75
[2018-06-17 08:08] VITALS: BP 120/78
[2018-06-17] MEDS: LORazepam 2 MG TABLET PO PRN ×2 (08:34→16:56)
[2018-06-17] MEDS: CHOLECALCIFEROL (VIT D3) 2,000 UNITS TABLET PO SCH (08:34)
[2018-06-17] MEDS: HALOPERIDOL 5 MG TABLET PO PRN (08:34)
[2018-06-17] MEDS: LISINOPRIL 20 MG TABLET PO SCH (08:34)
[2018-06-17] MEDS: MINERAL OIL/PETROLATUM 120 GM CREAM TP SCH ×2 (08:34→16:56)
[2018-06-17] MEDS: BENZTROPINE MESYLATE 1 MG TABLET PO SCH ×2 (08:34→16:56)
[2018-06-17] MEDS: FOLIC ACID 1 MG TABLET PO SCH (08:34)
[2018-06-17 16:00] VITALS: BP 116/74
[2018-06-17] MEDS: DIVALPROEX SODIUM 500 MG ER TABLET PO SCH (20:40)
[2018-06-17] MEDS: HALOPERIDOL 10 MG TABLET PO SCH (20:40)
[2018-06-18 01:57] VITALS: BP 117/71
[2018-06-18] MEDS: ZOLPIDEM TARTRATE 10 MG TABLET PO PRN ×2 (05:06→22:00)
[2018-06-18 08:11] VITALS: BP 120/62
[2018-06-18] MEDS: MINERAL OIL/PETROLATUM 120 GM CREAM TP SCH ×2 (08:13→16:42)
[2018-06-18] MEDS: BENZTROPINE MESYLATE 1 MG TABLET PO SCH ×2 (08:13→16:42)
[2018-06-18] MEDS: LISINOPRIL 20 MG TABLET PO SCH (08:13)
[2018-06-18] MEDS: FOLIC ACID 1 MG TABLET PO SCH (08:13)
[2018-06-18] MEDS: CHOLECALCIFEROL (VIT D3) 2,000 UNITS TABLET PO SCH (08:13)
[2018-06-18] MEDS: LORazepam 2 MG TABLET PO PRN ×3 (10:56→22:00)
[2018-06-18 16:00] VITALS: BP 110/66
[2018-06-18] MEDS: HALOPERIDOL 10 MG TABLET PO SCH (20:34)
[2018-06-18] MEDS: DIVALPROEX SODIUM 500 MG ER TABLET PO SCH (20:34)
[2018-06-19 02:37] VITALS: BP 131/79
[2018-06-19] MEDS: LORazepam 2 MG TABLET PO PRN ×3 (02:43→18:27)
[2018-06-19 08:04] VITALS: BP 127/82
[2018-06-19] MEDS ORDERED: ARIPiprazole ER SUSPENSION 400 MG PRE-FILLED DUAL CHAMBER SYRINGE IM ONE (09:00)
[2018-06-19] MEDS: BENZTROPINE MESYLATE 1 MG TABLET PO SCH ×2 (09:54→16:57)
[2018-06-19] MEDS: CHOLECALCIFEROL (VIT D3) 2,000 UNITS TABLET PO SCH (09:54)
[2018-06-19] MEDS: MINERAL OIL/PETROLATUM 120 GM CREAM TP SCH ×2 (09:54→16:57)
[2018-06-19] MEDS: LISINOPRIL 20 MG TABLET PO SCH (09:54)
[2018-06-19] MEDS: FOLIC ACID 1 MG TABLET PO SCH (09:54)
[2018-06-19] MEDS: NICOTINE 14 MG/24 HOUR PATCH TD PRN (11:50)
[2018-06-19 16:00] VITALS: BP 136/72
[2018-06-19] MEDS: ZOLPIDEM TARTRATE 10 MG TABLET PO PRN (20:28)
[2018-06-19] MEDS: HALOPERIDOL 10 MG TABLET PO SCH (20:28)
[2018-06-19] MEDS: DIVALPROEX SODIUM 500 MG ER TABLET PO SCH (20:28)
[2018-06-20 03:43] VITALS: BP 129/81
[2018-06-20] MEDS: CHOLECALCIFEROL (VIT D3) 2,000 UNITS TABLET PO SCH (08:01)
[2018-06-20] MEDS: LISINOPRIL 20 MG TABLET PO SCH (08:01)
[2018-06-20] MEDS: BENZTROPINE MESYLATE 1 MG TABLET PO SCH ×2 (08:01→16:25)
[2018-06-20] MEDS: FOLIC ACID 1 MG TABLET PO SCH (08:01)
[2018-06-20] MEDS: MINERAL OIL/PETROLATUM 120 GM CREAM TP SCH ×2 (08:02→16:26)
[2018-06-20 08:07] VITALS: BP 116/71
[2018-06-20 08:12] LABS: BASOPHILS % (AUTO) 0.7 % (0.0-2.0); HEMATOCRIT 44.6 % (41-53); HEMOGLOBIN 15.2 g/dL (13.5-17.5); LYMPHOCYTES # (AUTO) 2.2 K/uL (1.0-4.8); LYMPHOCYTES % (AUTO) 51.6 % (22.0-44.0); MEAN CORPUSCULAR HEMOGLOBIN 30.6 pg (26.0-34.0); MEAN CORPUSCULAR HGB CONC 33.9 G/dL (31.0-37.0); MEAN CORPUSCULAR VOLUME 90 fL (80-100); MONOCYTES # (AUTO) 0.4 K/uL (0.1-1.0); MONOCYTES % (AUTO) 9.5 % (2.0-9.0); NEUTROPHILS # (AUTO) 1.5 K/uL (1.8-7.7); NEUTROPHILS % (AUTO) 36.2 % (40.0-70.0); PLATELET COUNT (AUTO) 282 K/uL (150-450); RED BLOOD CELL COUNT(AUTO) 4.96 MIL/uL (4.50-5.90)
[2018-06-20] MEDS: LORazepam 2 MG TABLET PO PRN ×3 (09:11→20:44)
[2018-06-20] MEDS ORDERED: ZOLPIDEM TARTRATE 10 MG TABLET PO PRN (12:30)
[2018-06-20 16:00] VITALS: BP 120/65
[2018-06-20] MEDS: HALOPERIDOL 5 MG TABLET PO PRN (16:25)
[2018-06-20] MEDS: HALOPERIDOL 10 MG TABLET PO SCH (20:44)
[2018-06-20] MEDS: DIVALPROEX SODIUM 500 MG ER TABLET PO SCH (20:44)
[2018-06-21 05:17] VITALS: BP 119/73
[2018-06-21] MEDS: CHOLECALCIFEROL (VIT D3) 2,000 UNITS TABLET PO SCH (08:32)
[2018-06-21] MEDS: LISINOPRIL 20 MG TABLET PO SCH (08:33)
[2018-06-21] MEDS: FOLIC ACID 1 MG TABLET PO SCH (08:33)
[2018-06-21] MEDS: BENZTROPINE MESYLATE 1 MG TABLET PO SCH ×2 (08:33→16:36)
[2018-06-21] MEDS: MINERAL OIL/PETROLATUM 120 GM CREAM TP SCH ×2 (08:33→16:36)
[2018-06-21 08:48] VITALS: BP 123/87
[2018-06-21 16:10] VITALS: BP 148/90
[2018-06-21] MEDS: LORazepam 2 MG TABLET PO PRN (16:36)
[2018-06-21] MEDS: NICOTINE 14 MG/24 HOUR PATCH TD PRN (16:36)
[2018-06-21] MEDS: HALOPERIDOL 10 MG TABLET PO SCH (20:12)
[2018-06-21] MEDS: DIVALPROEX SODIUM 500 MG ER TABLET PO SCH (20:12)
[2018-06-22 04:33] VITALS: BP 132/88
[2018-06-22] MEDS: LORazepam 2 MG TABLET PO PRN ×2 (04:36→16:33)
[2018-06-22] MEDS: BENZTROPINE MESYLATE 1 MG TABLET PO SCH ×2 (08:22→16:33)
[2018-06-22] MEDS: FOLIC ACID 1 MG TABLET PO SCH (08:22)
[2018-06-22] MEDS: LISINOPRIL 20 MG TABLET PO SCH (08:22)
[2018-06-22] MEDS: CHOLECALCIFEROL (VIT D3) 2,000 UNITS TABLET PO SCH (08:22)
[2018-06-22] MEDS: MINERAL OIL/PETROLATUM 120 GM CREAM TP SCH ×2 (08:41→16:33)
[2018-06-22 09:22] VITALS: BP 108/65
[2018-06-22 17:21] VITALS: BP 125/78
[2018-06-22] MEDS: DIVALPROEX SODIUM 500 MG ER TABLET PO SCH (20:40)
[2018-06-22] MEDS: HALOPERIDOL 10 MG TABLET PO SCH (20:40)
[2018-06-23] MEDS: LORazepam 2 MG TABLET PO PRN (02:21)
[2018-06-23 02:28] VITALS: BP 114/71
[2018-06-23] MEDS ORDERED: DIVA500T52 PO (07:59)
[2018-06-23] MEDS ORDERED: BENZ1TAB10 PO (07:59)
[2018-06-23] MEDS ORDERED: HALO10 PO (07:59)
[2018-06-23 08:08] VITALS: BP 127/77
[2018-06-23] MEDS ORDERED: FOLI1 PO (08:14)
[2018-06-23] MEDS: BENZTROPINE MESYLATE 1 MG TABLET PO SCH (08:40)
[2018-06-23] MEDS: FOLIC ACID 1 MG TABLET PO SCH (08:40)
[2018-06-23] MEDS: CHOLECALCIFEROL (VIT D3) 2,000 UNITS TABLET PO SCH (08:40)
[2018-06-23] MEDS: LISINOPRIL 20 MG TABLET PO SCH (08:40)
[2018-06-23] MEDS: MINERAL OIL/PETROLATUM 120 GM CREAM TP SCH (08:40)
== END 2018-06-23 13:30 | disposition home or self-care (01) | DRG 750 ==
LOC: B3A 12:15
PROVIDERS: ADMIT Psychiatry & Neurology Psychiatry; ATTEND Psychiatry & Neurology Psychiatry
DX: F20.0 Paranoid schizophrenia (principal); G25.9 Extrapyramidal and movement disorder, unspecified; D72.819 Decreased white blood cell count, unspecified; E55.9 Vitamin D deficiency, unspecified; K59.09 Other constipation; F12.90 Cannabis use, unspecified, uncomplicated; I10 Essential (primary) hypertension; K21.9 Gastro-esophageal reflux disease without esophagitis; J30.2 Other seasonal allergic rhinitis; K59.00 Constipation, unspecified; Z79.899 Other long term (current) drug therapy; Z88.8 Allergy status to other drugs, medicaments and biological substances; Z28.21 Immunization not carried out because of patient refusal
CPT/HCPCS: 83036; 84439; 84443; 90686; J0401; J1200; J1630; J2060

== ENCOUNTER 2018-07-20 10:55 | Inpatient (IN) | payer MEDICAID, OTHER ==
[~2018-07-20] VITALS: Ht 190.5 cm; Wt 109.6 kg
[~2018-07-20 10:55] MED LIST changes: -BENZ0.5T44 PO; +BENZ1TAB10 PO; +FOLI1 PO
[2018-07-20 11:27] LABS: BASOPHILS % (AUTO) 0.9 % (0.0-2.0); EOSINOPHILS % (AUTO) 2.9 % (1.0-6.0); HEMATOCRIT 43.8 % (41-53); HEMOGLOBIN 14.7 g/dL (13.5-17.5); LYMPHOCYTES # (AUTO) 1.4 K/uL (1.0-4.8); LYMPHOCYTES % (AUTO) 26.7 % (22.0-44.0); MEAN CORPUSCULAR HEMOGLOBIN 30.8 pg (26.0-34.0); MEAN CORPUSCULAR HGB CONC 33.7 G/dL (31.0-37.0); MEAN CORPUSCULAR VOLUME 91 fL (80-100); MONOCYTES # (AUTO) 0.4 K/uL (0.1-1.0); MONOCYTES % (AUTO) 8.7 % (2.0-9.0); NEUTROPHILS # (AUTO) 3.2 K/uL (1.8-7.7); NEUTROPHILS % (AUTO) 60.8 % (40.0-70.0); PLATELET COUNT (AUTO) 258 K/uL (150-450); RED CELL DISTRIBUTION WIDTH 15.5 % (11.5-14.5)
[2018-07-20 11:41] LABS: ANION GAP 11 mmol/L (8-16); CALCIUM, TOTAL 9.1 mg/dL (8.8-10.5); CARBON DIOXIDE 26 mmol/L (22-29); CHLORIDE 104 mmol/L (98-107); CREATININE 0.79 mg/dL (0.60-1.30); GLOMERULAR FILTR. RATE CALC > 60 mL/min (>60); GLUCOSE,RANDOM 126 mg/dL (70-110); POTASSIUM 4.1 mmol/L (3.5-5.1); SALICYLATE 3.8 mg/dL (2.8-20.0); SODIUM SERUM 141 mmol/L (136-145); UREA NITROGEN, BLOOD 17 mg/dL (7-18)
[2018-07-20 11:43] LABS: ALANINE AMINOTRANSFERASE 30 U/L (12-78); ALBUMIN 3.5 g/dL (3.4-5.0); ALKALINE PHOSPHATASE 81 U/L (46-116); ASPARTATE AMINOTRANSFERASE 30 U/L (15-37); BILIRUBIN,TOTAL 0.3 mg/dL (0.1-1.0); TOTAL PROTEIN, SERUM 7.1 g/dL (6.4-8.2); VALPROIC ACID 36 mcg/mL (50-100)
[2018-07-20 11:45] LABS: ACETAMINOPHEN < 2 mcg/mL (10-30)
[2018-07-20] MEDS ORDERED: NALOXONE HCL 1 MG/ML 2 ML SYG IM ONE (14:45)
[2018-07-20] MEDS ORDERED: HALOPERIDOL 5 MG TABLET PO PRN ×2 (16:30→16:45)
[2018-07-20] MEDS ORDERED: LORazepam 2 MG TABLET PO PRN ×2 (16:30→16:45)
[2018-07-20] MEDS ORDERED: ZOLPIDEM TARTRATE 10 MG TABLET PO PRN ×2 (16:30→16:45)
[2018-07-21] MEDS ORDERED: SODIUM CHLORIDE 0.9% 1,000 ML IV ONE ×2 (12:45→13:30)
[2018-07-21 14:11] LABS: AMPHET/METH SCREEN,URINE POSITIVE (NEGATIVE); BARBITURATE SCREEN, URINE NEGATIVE (NEGATIVE); BENZODIAZEPINES SCREEN,URINE NEGATIVE (NEGATIVE); CANNABINOID SCREEN,URINE NEGATIVE (NEGATIVE); COCAINE SCREEN,URINE NEGATIVE (NEGATIVE); METHADONE SCREEN, URINE NEGATIVE (NEGATIVE); OPIATE SCREEN,URINE NEGATIVE (NEGATIVE)
[2018-07-21 14:14] LABS: PHENCYCLIDINE SCREEN,URINE NEGATIVE (NEGATIVE)
[2018-07-21] MEDS ORDERED: LORazepam 2 MG/ML VIAL IVP ONE (16:30)
[2018-07-21 17:59] LABS: THYROID STIMULATING HORMONE 0.39 uIU/mL (0.36-3.74)
[2018-07-21] MEDS ORDERED: DEXTROSE 50%-WATER 25 GM/50 ML SYRINGE IVP ONE ×2 (18:35→18:45)
[2018-07-21] MEDS ORDERED: ACETAMINOPHEN 650 MG RECTAL SUPPOSITORY PR ONE (19:00)
[2018-07-21 20:32] LABS: FREE T4 (FREE THYROXINE) 1.23 ng/dL (0.76-1.46)
[2018-07-21 21:14] LABS: BASOPHILS % (AUTO) 0.9 % (0.0-2.0); EOSINOPHILS % (AUTO) 2.3 % (1.0-6.0); HEMATOCRIT 41.8 % (41-53); HEMOGLOBIN 13.9 g/dL (13.5-17.5); LYMPHOCYTES # (AUTO) 1.7 K/uL (1.0-4.8); LYMPHOCYTES % (AUTO) 40.1 % (22.0-44.0); MEAN CORPUSCULAR HEMOGLOBIN 30.2 pg (26.0-34.0); MEAN CORPUSCULAR HGB CONC 33.2 G/dL (31.0-37.0); MEAN CORPUSCULAR VOLUME 91 fL (80-100); MONOCYTES # (AUTO) 0.4 K/uL (0.1-1.0); MONOCYTES % (AUTO) 8.8 % (2.0-9.0); NEUTROPHILS % (AUTO) 47.9 % (40.0-70.0); PLATELET COUNT (AUTO) 259 K/uL (150-450); RED CELL DISTRIBUTION WIDTH 15.7 % (11.5-14.5)
[2018-07-21 21:18] LABS: APPEARANCE,URINE CLEAR (CLEAR); BILIRUBIN,URINE NEGATIVE (NEGATIVE); GLUCOSE, URINE (UA) NEGATIVE (NEGATIVE); KETONES,URINE TRACE mg/dL (NEGATIVE); LEUKOCYTE ESTERASE ,URINE NEGATIVE (NEGATIVE); NITRATE,URINE NEGATIVE (NEGATIVE); OCCULT BLOOD,URINE NEGATIVE (NEGATIVE); PH,URINE 5.5 (5.0-8.0); PROTEIN,URINE NEGATIVE (NEGATIVE); UROBILINOGEN,URINE 0.2 mg/dL (<=1.0)
[2018-07-21 21:19] LABS: ANION GAP 15 mmol/L (8-16); CALCIUM, TOTAL 8.7 mg/dL (8.8-10.5); CARBON DIOXIDE 21 mmol/L (22-29); CHLORIDE 108 mmol/L (98-107); CREATININE 0.96 mg/dL (0.60-1.30); GLOMERULAR FILTR. RATE CALC > 60 mL/min (>60); GLUCOSE,RANDOM 67 mg/dL (70-110); SODIUM SERUM 144 mmol/L (136-145); UREA NITROGEN, BLOOD 13 mg/dL (7-18)
[2018-07-21 21:24] LABS: ALANINE AMINOTRANSFERASE 24 U/L (12-78); ALBUMIN 3.1 g/dL (3.4-5.0); ALKALINE PHOSPHATASE 74 U/L (46-116); ASPARTATE AMINOTRANSFERASE 25 U/L (15-37); BILIRUBIN,TOTAL 0.6 mg/dL (0.1-1.0); TOTAL PROTEIN, SERUM 6.8 g/dL (6.4-8.2)
[2018-07-21] MEDS ORDERED: BISACODYL 10 MG RECTAL RECTAL SUPPOSITORY PR PRN (22:00)
[2018-07-21] MEDS ORDERED: DEXTROSE 5%-0.45% SODIUM CHL 1,000 ML IV ONE (22:00)
[2018-07-21] MEDS ORDERED: ZOLPIDEM TARTRATE 5 MG TABLET PO PRN (22:00)
[2018-07-21] MEDS ORDERED: IPRATROPIUM BROMIDE 0.5 MG/2.5 ML NEB SOLUTION NEB PRN (22:00)
[2018-07-21] MEDS ORDERED: ALBUTEROL SULFATE 2.5 MG/0.5 ML NEB SOLUTION NEB PRN (22:00)
[2018-07-21] MEDS ORDERED: ACETAMINOPHEN 325 MG TABLET PO PRN (22:00)
[2018-07-21] MEDS ORDERED: ONDANSETRON HCL 4 MG/2 ML VIAL IVP PRN (22:00)
[2018-07-21] MEDS ORDERED: MAGNESIUM HYDROXIDE SUSPENSION 30 ML UDCUP PO PRN (22:00)
[2018-07-22] MEDS: HEPARIN SODIUM,PORCINE 5,000 UNITS/ML VIAL SQ SCH ×5 (00:06→23:38)
[2018-07-22 07:57] LABS: BASOPHILS % (AUTO) 0.6 % (0.0-2.0); EOSINOPHILS % (AUTO) 3.7 % (1.0-6.0); HEMATOCRIT 41.8 % (41-53); HEMOGLOBIN 13.9 g/dL (13.5-17.5); LYMPHOCYTES # (AUTO) 1.4 K/uL (1.0-4.8); LYMPHOCYTES % (AUTO) 33.9 % (22.0-44.0); MEAN CORPUSCULAR HEMOGLOBIN 30.3 pg (26.0-34.0); MEAN CORPUSCULAR HGB CONC 33.3 G/dL (31.0-37.0); MEAN CORPUSCULAR VOLUME 91 fL (80-100); MONOCYTES # (AUTO) 0.4 K/uL (0.1-1.0); NEUTROPHILS # (AUTO) 2.1 K/uL (1.8-7.7); NEUTROPHILS % (AUTO) 51.8 % (40.0-70.0); PLATELET COUNT (AUTO) 229 K/uL (150-450); RED BLOOD CELL COUNT(AUTO) 4.59 MIL/uL (4.50-5.90); RED CELL DISTRIBUTION WIDTH 15.4 % (11.5-14.5)
[2018-07-22] MEDS: PANTOPRAZOLE SODIUM 40 MG/VIAL IVP SCH (08:02)
[2018-07-22 08:11] LABS: ANION GAP 8 mmol/L (8-16); CALCIUM, TOTAL 8.6 mg/dL (8.8-10.5); CARBON DIOXIDE 28 mmol/L (22-29); CHLORIDE 106 mmol/L (98-107); CREATININE 0.85 mg/dL (0.60-1.30); GLOMERULAR FILTR. RATE CALC > 60 mL/min (>60); GLUCOSE,RANDOM 79 mg/dL (70-110); POTASSIUM 3.9 mmol/L (3.5-5.1); SODIUM SERUM 142 mmol/L (136-145); UREA NITROGEN, BLOOD 13 mg/dL (7-18)
[2018-07-22 08:16] LABS: ALANINE AMINOTRANSFERASE 21 U/L (12-78); ALBUMIN 2.9 g/dL (3.4-5.0); ALKALINE PHOSPHATASE 72 U/L (46-116); ASPARTATE AMINOTRANSFERASE 16 U/L (15-37); BILIRUBIN,TOTAL 0.8 mg/dL (0.1-1.0); TOTAL PROTEIN, SERUM 6.1 g/dL (6.4-8.2)
[2018-07-22] MEDS: DOCUSATE SODIUM 100 MG CAPSULE PO SCH ×2 (08:47→20:12)
[2018-07-22 13:59] LABS: GLUCOSE,POINT OF CARE 61 MG/DL (70-110)
[2018-07-22 13:59] LABS: GLUCOSE,POINT OF CARE 148 MG/DL (70-110)
[2018-07-22 13:59] LABS: GLUCOSE,POINT OF CARE 56 MG/DL (70-110)
[2018-07-22 14:00] LABS: GLUCOSE,POINT OF CARE 86 MG/DL (70-110)
[2018-07-22 14:01] LABS: GLUCOSE,POINT OF CARE 79 MG/DL (70-110)
[2018-07-22 14:01] LABS: GLUCOSE,POINT OF CARE 77 MG/DL (70-110)
[2018-07-22 14:01] LABS: GLUCOSE,POINT OF CARE 81 MG/DL (70-110)
[2018-07-22 14:01] LABS: GLUCOSE,POINT OF CARE 100 MG/DL (70-110)
[2018-07-22 15:19] LABS: GLUCOSE,POINT OF CARE 99 MG/DL (70-110)
[2018-07-22 15:19] LABS: GLUCOSE,POINT OF CARE 116 MG/DL (70-110)
[2018-07-22 15:59] LABS: GLUCOSE,POINT OF CARE 108 MG/DL (70-110)
[2018-07-22 16:59] VITALS: BP 124/85
[2018-07-22 20:13] VITALS: BP 98/46
[2018-07-23 00:21] VITALS: BP 105/67
[2018-07-23 04:50] VITALS: BP 140/81
[2018-07-23 07:51] VITALS: BP 124/68
[2018-07-23] MEDS: HEPARIN SODIUM,PORCINE 5,000 UNITS/ML VIAL SQ SCH (08:19)
[2018-07-23] MEDS: PANTOPRAZOLE SODIUM 40 MG/VIAL IVP SCH (08:19)
[2018-07-23] MEDS: DOCUSATE SODIUM 100 MG CAPSULE PO SCH ×2 (08:19→20:39)
[2018-07-23 08:50] LABS: GLUCOMETER DEV NAME(LOC) 6N.1; GLUCOSE,POINT OF CARE 107 MG/DL (70-110)
[2018-07-23 08:52] LABS: GLUCOMETER DEV NAME(LOC) 6N.1; GLUCOSE,POINT OF CARE 87 MG/DL (70-110)
[2018-07-23 08:56] LABS: GLUCOMETER DEV NAME(LOC) 6N.1; GLUCOSE,POINT OF CARE 105 MG/DL (70-110)
[2018-07-23 11:57] VITALS: BP 109/72
[2018-07-23 16:08] VITALS: BP 115/70
[2018-07-23 19:13] VITALS: BP 147/78
[2018-07-23] MEDS ORDERED: DIVALPROEX SODIUM 500 MG ER TABLET PO SCH (21:00)
[2018-07-23] MEDS ORDERED: BENZTROPINE MESYLATE 1 MG TABLET PO SCH (21:00)
[2018-07-23] MEDS ORDERED: HALOPERIDOL 1 MG TABLET PO SCH (21:00)
== END 2018-07-23 20:45 | DRG 812 ==
LOC: EMS 10:56 → 6N 07-22 15:27
PROVIDERS: ADMIT Internal Medicine; ATTEND Internal Medicine
DX: T50.902A Poisoning by unspecified drugs, medicaments and biological substances, intentional self-harm, initial encounter (principal); G92 Toxic encephalopathy; F20.0 Paranoid schizophrenia; G25.9 Extrapyramidal and movement disorder, unspecified; E16.2 Hypoglycemia, unspecified; S51.812A Laceration without foreign body of left forearm, initial encounter; F17.210 Nicotine dependence, cigarettes, uncomplicated; F19.10 Other psychoactive substance abuse, uncomplicated; F15.10 Other stimulant abuse, uncomplicated; I44.4 Left anterior fascicular block; F12.90 Cannabis use, unspecified, uncomplicated; I10 Essential (primary) hypertension; Z82.49 Family history of ischemic heart disease and other diseases of the circulatory system; Z91.14 Patient's other noncompliance with medication regimen; Z79.899 Other long term (current) drug therapy; Z88.8 Allergy status to other drugs, medicaments and biological substances; X58.XXXA Exposure to other specified factors, initial encounter; Y92.89 Other specified places as the place of occurrence of the external cause; Y93.89 Activity, other specified; Y99.8 Other external cause status
CPT/HCPCS: 84439; 84443; 93005; 96374; 96375; C9113; G0378; G0480; G0481; J1644; J2060; J7030

== ENCOUNTER 2018-07-23 20:45 | Inpatient (IN) | payer MEDICAID ==
[~2018-07-23] VITALS: Ht 193 cm; Wt 103.4 kg
[~2018-07-23 20:45] MED LIST changes: -DIVA500T52 PO; -HALO10 PO; -MINE454C11 TP
[2018-07-23] MEDS ORDERED: MAG HYDROX/AL HYDROX/SIMETH ES 30 ML SUSPENSION UDCUP PO PRN (22:30)
[2018-07-23] MEDS ORDERED: DOCUSATE SODIUM 100 MG CAPSULE PO PRN (22:30)
[2018-07-23] MEDS ORDERED: ONDANSETRON HCL 4 MG TABLET PO PRN (22:30)
[2018-07-23] MEDS ORDERED: LOPERAMIDE HCL 2 MG CAPSULE PO PRN (22:30)
[2018-07-23] MEDS ORDERED: LORazepam 2 MG TABLET PO PRN (22:30)
[2018-07-23] MEDS ORDERED: ACETAMINOPHEN 325 MG TABLET PO PRN (22:30)
[2018-07-23] MEDS ORDERED: GuaiFENesin/D-METHORPHAN [SUGAR-FREE] 200-20MG/10 ML SYRUP UDCUP PO PRN (22:30)
[2018-07-23] MEDS ORDERED: CloNIDine HCL 0.1 MG TABLET PO PRN (22:30)
[2018-07-23] MEDS ORDERED: MAGNESIUM HYDROXIDE SUSPENSION 30 ML UDCUP PO PRN (22:30)
[2018-07-23] MEDS ORDERED: PETROLATUM,WHITE 71 GM JELLY TP PRN (22:30)
[2018-07-23] MEDS ORDERED: IBUPROFEN 400 MG TABLET PO PRN (22:30)
[2018-07-23] MEDS ORDERED: ALBUTEROL SULFATE HFA 90 MCG/PUFF 8 GM INHALER IH PRN (22:30)
[2018-07-23] MEDS ORDERED: HALOPERIDOL 5 MG TABLET PO PRN (22:30)
[2018-07-23] MEDS ORDERED: NICOTINE 14 MG/24 HOUR PATCH TD PRN (22:30)
[2018-07-23 22:43] VITALS: BP 141/61
[2018-07-23] MEDS ORDERED: -PHARMACY VACCINE NOTE- MISC ONE (23:00)
[2018-07-24 03:40] VITALS: BP 151/107
[2018-07-24 06:17] LABS: BASOPHILS % (AUTO) 0.2 % (0.0-2.0); EOSINOPHILS % (AUTO) 6.4 % (1.0-6.0); HEMATOCRIT 43.7 % (41-53); HEMOGLOBIN 14.6 g/dL (13.5-17.5); LYMPHOCYTES # (AUTO) 1.6 K/uL (1.0-4.8); LYMPHOCYTES % (AUTO) 47.7 % (22.0-44.0); MEAN CORPUSCULAR HEMOGLOBIN 30.3 pg (26.0-34.0); MEAN CORPUSCULAR HGB CONC 33.4 G/dL (31.0-37.0); MEAN CORPUSCULAR VOLUME 91 fL (80-100); MONOCYTES # (AUTO) 0.5 K/uL (0.1-1.0); NEUTROPHILS % (AUTO) 30.7 % (40.0-70.0); PLATELET COUNT (AUTO) 252 K/uL (150-450); RED BLOOD CELL COUNT(AUTO) 4.82 MIL/uL (4.50-5.90); RED CELL DISTRIBUTION WIDTH 15.1 % (11.5-14.5)
[2018-07-24 07:05] LABS: HEMOGLOBIN A1C 5.7 % (4.5-6.2)
[2018-07-24 07:38] LABS: ALANINE AMINOTRANSFERASE 24 U/L (12-78); ALBUMIN 2.9 g/dL (3.4-5.0); ALKALINE PHOSPHATASE 65 U/L (46-116); ANION GAP 5 mmol/L (8-16); ASPARTATE AMINOTRANSFERASE 15 U/L (15-37); BILIRUBIN,TOTAL 0.1 mg/dL (0.1-1.0); CALCIUM, TOTAL 8.8 mg/dL (8.8-10.5); CARBON DIOXIDE 29 mmol/L (22-29); CHLORIDE 104 mmol/L (98-107); CHOL/HDL RATIO 3.2 (4.2-7.3); CHOLESTEROL 141 mg/dL (131-200); CREATININE 0.82 mg/dL (0.60-1.30); GLOMERULAR FILTR. RATE CALC > 60 mL/min (>60); GLUCOSE,RANDOM 83 mg/dL (70-110); HDL CHOLESTEROL 44 mg/dL (40-60); LDL CHOL (CALC.) 85 mg/dL (0-130); POTASSIUM 4.6 mmol/L (3.5-5.1); SODIUM SERUM 138 mmol/L (136-145); THYROID STIMULATING HORMONE 1.98 uIU/mL (0.36-3.74); TOTAL PROTEIN, SERUM 6.2 g/dL (6.4-8.2); TRIGLYCERIDES 59 mg/dL (15-150); UREA NITROGEN, BLOOD 11 mg/dL (7-18)
[2018-07-24 08:00] VITALS: BP 146/98
[2018-07-24 08:20] VITALS: BP 146/98
[2018-07-24] MEDS: DOCUSATE SODIUM 100 MG CAPSULE PO SCH ×2 (08:32→16:25)
[2018-07-24] MEDS: BENZTROPINE MESYLATE 1 MG TABLET PO SCH ×2 (08:32→16:24)
[2018-07-24] MEDS: DIVALPROEX SODIUM 500 MG ER TABLET PO SCH ×2 (08:32→16:24)
[2018-07-24] MEDS ORDERED: HALOPERIDOL 1 MG TABLET PO SCH (09:00)
[2018-07-24 16:36] VITALS: BP 102/48
[2018-07-24 17:12] VITALS: BP 102/48
[2018-07-24] MEDS: HALOPERIDOL 10 MG TABLET PO SCH (20:31)
[2018-07-25] MEDS: LISINOPRIL 20 MG TABLET PO SCH (08:42)
[2018-07-25] MEDS: FOLIC ACID 1 MG TABLET PO SCH (08:42)
[2018-07-25] MEDS: BENZTROPINE MESYLATE 1 MG TABLET PO SCH ×2 (08:42→16:54)
[2018-07-25] MEDS: DIVALPROEX SODIUM 500 MG ER TABLET PO SCH ×2 (08:42→16:54)
[2018-07-25] MEDS: DOCUSATE SODIUM 100 MG CAPSULE PO SCH ×2 (08:42→16:54)
[2018-07-25] MEDS: CHOLECALCIFEROL (VIT D3) 2,000 UNITS TABLET PO SCH (08:43)
[2018-07-25 09:00] VITALS: BP 120/60
[2018-07-25] MEDS ORDERED: DIVA500T52 PO (11:12)
[2018-07-25] MEDS ORDERED: ARIP400S3 IM (11:12)
[2018-07-25] MEDS ORDERED: QUET300T2 PO (11:12)
[2018-07-25] MEDS ORDERED: TRAZ150 PO (11:12)
[2018-07-25] MEDS ORDERED: HALOPERIDOL DECANOATE 100 MG/ML VIAL IM SCH (15:30)
[2018-07-25 16:00] VITALS: BP 123/94
[2018-07-25] MEDS: HALOPERIDOL 10 MG TABLET PO SCH (20:30)
[2018-07-26 06:54] LABS: GLUCOMETER DEV NAME(LOC) 3E.C; GLUCOSE,POINT OF CARE 81 MG/DL (70-110)
[2018-07-26] MEDS: BENZTROPINE MESYLATE 1 MG TABLET PO SCH ×2 (09:14→16:57)
[2018-07-26] MEDS: LISINOPRIL 20 MG TABLET PO SCH (09:14)
[2018-07-26] MEDS: FOLIC ACID 1 MG TABLET PO SCH (09:14)
[2018-07-26] MEDS: DIVALPROEX SODIUM 500 MG ER TABLET PO SCH ×2 (09:14→16:57)
[2018-07-26] MEDS: DOCUSATE SODIUM 100 MG CAPSULE PO SCH ×2 (09:14→16:57)
[2018-07-26] MEDS: CHOLECALCIFEROL (VIT D3) 2,000 UNITS TABLET PO SCH (09:14)
[2018-07-26 09:15] VITALS: BP 116/77
[2018-07-26 16:45] VITALS: BP 121/85
[2018-07-26 17:30] LABS: GLUCOMETER DEV NAME(LOC) 3E.C; GLUCOSE,POINT OF CARE 84 MG/DL (70-110)
[2018-07-26] MEDS: HALOPERIDOL 10 MG TABLET PO SCH (20:30)
[2018-07-26] MEDS: ZOLPIDEM TARTRATE 10 MG TABLET PO PRN (20:30)
[2018-07-27 06:40] LABS: GLUCOMETER DEV NAME(LOC) 3E.C; GLUCOSE,POINT OF CARE 75 MG/DL (70-110)
[2018-07-27] MEDS: CHOLECALCIFEROL (VIT D3) 2,000 UNITS TABLET PO SCH (08:39)
[2018-07-27] MEDS: DIVALPROEX SODIUM 500 MG ER TABLET PO SCH ×2 (08:39→16:35)
[2018-07-27] MEDS: FOLIC ACID 1 MG TABLET PO SCH (08:40)
[2018-07-27] MEDS: DOCUSATE SODIUM 100 MG CAPSULE PO SCH ×2 (08:40→16:36)
[2018-07-27] MEDS: BENZTROPINE MESYLATE 1 MG TABLET PO SCH ×2 (08:40→16:35)
[2018-07-27] MEDS: LISINOPRIL 20 MG TABLET PO SCH (08:40)
[2018-07-27 12:54] VITALS: BP 124/82
[2018-07-27 17:34] LABS: GLUCOMETER DEV NAME(LOC) 3E.C; GLUCOSE,POINT OF CARE 108 MG/DL (70-110)
[2018-07-27] MEDS: ZOLPIDEM TARTRATE 10 MG TABLET PO PRN (20:24)
[2018-07-27] MEDS: HALOPERIDOL 10 MG TABLET PO SCH (20:24)
[2018-07-27 21:47] VITALS: BP 146/88
[2018-07-28 06:35] LABS: GLUCOMETER DEV NAME(LOC) 3E.C; GLUCOSE,POINT OF CARE 75 MG/DL (70-110)
[2018-07-28 08:43] VITALS: BP 114/65
[2018-07-28] MEDS: FOLIC ACID 1 MG TABLET PO SCH (08:59)
[2018-07-28] MEDS: BENZTROPINE MESYLATE 1 MG TABLET PO SCH ×2 (08:59→16:59)
[2018-07-28] MEDS: CHOLECALCIFEROL (VIT D3) 2,000 UNITS TABLET PO SCH (08:59)
[2018-07-28] MEDS: LISINOPRIL 20 MG TABLET PO SCH (08:59)
[2018-07-28] MEDS: DIVALPROEX SODIUM 500 MG ER TABLET PO SCH ×2 (08:59→16:59)
[2018-07-28] MEDS: DOCUSATE SODIUM 100 MG CAPSULE PO SCH ×2 (09:00→16:59)
[2018-07-28] MEDS: MULTIVITAMINS WITH MINERALS, THERAPEUTIC TABLET PO SCH (11:29)
[2018-07-28 16:53] VITALS: BP 136/75
[2018-07-28 18:04] LABS: GLUCOMETER DEV NAME(LOC) 3E.C; GLUCOSE,POINT OF CARE 89 MG/DL (70-110)
[2018-07-28] MEDS: HALOPERIDOL 10 MG TABLET PO SCH (21:01)
[2018-07-28] MEDS: NEOMYCIN/BACITRACIN/POLYMYXIN B 30 GM OINTMENT TP SCH (21:15)
[2018-07-28] MEDS: ZOLPIDEM TARTRATE 10 MG TABLET PO PRN (21:53)
[2018-07-29 06:30] LABS: GLUCOMETER DEV NAME(LOC) 3EX.; GLUCOSE,POINT OF CARE 74 MG/DL (70-110)
[2018-07-29 08:56] VITALS: BP 116/66
[2018-07-29] MEDS: DOCUSATE SODIUM 100 MG CAPSULE PO SCH ×2 (08:59→17:35)
[2018-07-29] MEDS: CHOLECALCIFEROL (VIT D3) 2,000 UNITS TABLET PO SCH (08:59)
[2018-07-29] MEDS: BENZTROPINE MESYLATE 1 MG TABLET PO SCH ×2 (08:59→17:37)
[2018-07-29] MEDS: MULTIVITAMINS WITH MINERALS, THERAPEUTIC TABLET PO SCH (08:59)
[2018-07-29] MEDS: FOLIC ACID 1 MG TABLET PO SCH (08:59)
[2018-07-29] MEDS: LISINOPRIL 20 MG TABLET PO SCH (08:59)
[2018-07-29] MEDS: DIVALPROEX SODIUM 500 MG ER TABLET PO SCH ×2 (08:59→17:37)
[2018-07-29] MEDS: NEOMYCIN/BACITRACIN/POLYMYXIN B 30 GM OINTMENT TP SCH ×2 (09:02→17:35)
[2018-07-29 16:48] VITALS: BP 127/87
[2018-07-29 17:24] LABS: GLUCOMETER DEV NAME(LOC) 3E.C; GLUCOSE,POINT OF CARE 90 MG/DL (70-110)
[2018-07-29] MEDS: HALOPERIDOL 10 MG TABLET PO SCH (20:05)
[2018-07-30 06:29] LABS: GLUCOMETER DEV NAME(LOC) 3E.C; GLUCOSE,POINT OF CARE 66 MG/DL (70-110)
[2018-07-30 07:04] LABS: GLUCOMETER DEV NAME(LOC) 3E.C; GLUCOSE,POINT OF CARE 75 MG/DL (70-110)
[2018-07-30] MEDS: BENZTROPINE MESYLATE 1 MG TABLET PO SCH ×2 (09:26→16:04)
[2018-07-30] MEDS: CHOLECALCIFEROL (VIT D3) 2,000 UNITS TABLET PO SCH (09:26)
[2018-07-30] MEDS: DOCUSATE SODIUM 100 MG CAPSULE PO SCH ×2 (09:26→16:04)
[2018-07-30] MEDS: DIVALPROEX SODIUM 500 MG ER TABLET PO SCH ×2 (09:26→16:04)
[2018-07-30] MEDS: MULTIVITAMINS WITH MINERALS, THERAPEUTIC TABLET PO SCH (09:26)
[2018-07-30] MEDS: FOLIC ACID 1 MG TABLET PO SCH (09:26)
[2018-07-30] MEDS: LISINOPRIL 20 MG TABLET PO SCH (09:27)
[2018-07-30] MEDS: NEOMYCIN/BACITRACIN/POLYMYXIN B 30 GM OINTMENT TP SCH ×2 (09:27→16:04)
[2018-07-30 10:14] VITALS: BP 132/93
[2018-07-30] MEDS ORDERED: DEXTROSE 40% LEMON 37.5 GM/TUBE GEL [15 GM GLUCOSE] PO PRN (14:30)
[2018-07-30 20:05] VITALS: BP 105/63
[2018-07-30] MEDS: HALOPERIDOL 10 MG TABLET PO SCH (20:06)
[2018-07-30] MEDS: ZOLPIDEM TARTRATE 10 MG TABLET PO PRN (20:06)
[2018-07-31 06:29] LABS: GLUCOMETER DEV NAME(LOC) 3E.C; GLUCOSE,POINT OF CARE 76 MG/DL (70-110)
[2018-07-31] MEDS: MULTIVITAMINS WITH MINERALS, THERAPEUTIC TABLET PO SCH (08:50)
[2018-07-31] MEDS: FOLIC ACID 1 MG TABLET PO SCH (08:50)
[2018-07-31] MEDS: DIVALPROEX SODIUM 500 MG ER TABLET PO SCH ×2 (08:50→16:11)
[2018-07-31] MEDS: BENZTROPINE MESYLATE 1 MG TABLET PO SCH ×2 (08:50→16:11)
[2018-07-31] MEDS: NEOMYCIN/BACITRACIN/POLYMYXIN B 30 GM OINTMENT TP SCH ×2 (08:51→16:13)
[2018-07-31] MEDS: CHOLECALCIFEROL (VIT D3) 2,000 UNITS TABLET PO SCH (08:51)
[2018-07-31] MEDS: LISINOPRIL 20 MG TABLET PO SCH (08:51)
[2018-07-31] MEDS: DOCUSATE SODIUM 100 MG CAPSULE PO SCH ×2 (08:55→16:11)
[2018-07-31 16:49] LABS: GLUCOMETER DEV NAME(LOC) 3E.C; GLUCOSE,POINT OF CARE 111 MG/DL (70-110)
[2018-07-31 17:25] VITALS: BP 122/72
[2018-07-31] MEDS: HALOPERIDOL 10 MG TABLET PO SCH (20:15)
[2018-07-31] MEDS: ZOLPIDEM TARTRATE 10 MG TABLET PO PRN (20:15)
[2018-08-01 06:44] LABS: GLUCOMETER DEV NAME(LOC) 3EX.; GLUCOSE,POINT OF CARE 76 MG/DL (70-110)
[2018-08-01] MEDS: CHOLECALCIFEROL (VIT D3) 2,000 UNITS TABLET PO SCH (08:17)
[2018-08-01] MEDS: DOCUSATE SODIUM 100 MG CAPSULE PO SCH ×3 (08:20→17:09)
[2018-08-01] MEDS: BENZTROPINE MESYLATE 1 MG TABLET PO SCH ×2 (08:20→17:09)
[2018-08-01] MEDS: FOLIC ACID 1 MG TABLET PO SCH (08:20)
[2018-08-01] MEDS: LISINOPRIL 20 MG TABLET PO SCH (08:20)
[2018-08-01] MEDS: MULTIVITAMINS WITH MINERALS, THERAPEUTIC TABLET PO SCH (08:20)
[2018-08-01] MEDS: DIVALPROEX SODIUM 500 MG ER TABLET PO SCH ×2 (08:20→17:09)
[2018-08-01] MEDS: NEOMYCIN/BACITRACIN/POLYMYXIN B 30 GM OINTMENT TP SCH ×2 (08:20→18:00)
[2018-08-01 11:44] LABS: GLUCOMETER DEV NAME(LOC) 3E.C; GLUCOSE,POINT OF CARE 113 MG/DL (70-110)
[2018-08-01 16:24] LABS: GLUCOMETER DEV NAME(LOC) 3E.C; GLUCOSE,POINT OF CARE 121 MG/DL (70-110)
[2018-08-01 16:25] VITALS: BP 128/73
[2018-08-01] MEDS: HALOPERIDOL 10 MG TABLET PO SCH (21:55)
[2018-08-01] MEDS: ZOLPIDEM TARTRATE 10 MG TABLET PO PRN (22:00)
[2018-08-02 06:54] LABS: GLUCOMETER DEV NAME(LOC) 3E.C; GLUCOSE,POINT OF CARE 68 MG/DL (70-110)
[2018-08-02 08:00] VITALS: BP 138/80
[2018-08-02] MEDS: DOCUSATE SODIUM 100 MG CAPSULE PO SCH ×2 (09:00→16:35)
[2018-08-02] MEDS: MULTIVITAMINS WITH MINERALS, THERAPEUTIC TABLET PO SCH (10:28)
[2018-08-02] MEDS: NEOMYCIN/BACITRACIN/POLYMYXIN B 30 GM OINTMENT TP SCH ×2 (10:28→16:36)
[2018-08-02] MEDS: DIVALPROEX SODIUM 500 MG ER TABLET PO SCH ×2 (10:28→16:36)
[2018-08-02] MEDS: BENZTROPINE MESYLATE 1 MG TABLET PO SCH ×2 (10:28→16:35)
[2018-08-02] MEDS: LISINOPRIL 20 MG TABLET PO SCH (10:28)
[2018-08-02] MEDS: FOLIC ACID 1 MG TABLET PO SCH (10:28)
[2018-08-02] MEDS: CHOLECALCIFEROL (VIT D3) 2,000 UNITS TABLET PO SCH (10:29)
[2018-08-02 16:32] VITALS: BP 130/79
[2018-08-02 17:33] LABS: GLUCOMETER DEV NAME(LOC) 3E.C; GLUCOSE,POINT OF CARE 138 MG/DL (70-110)
[2018-08-02] MEDS: HALOPERIDOL 10 MG TABLET PO SCH (20:03)
[2018-08-02] MEDS: ZOLPIDEM TARTRATE 10 MG TABLET PO PRN (20:03)
[2018-08-03 06:24] LABS: GLUCOMETER DEV NAME(LOC) 3E.C; GLUCOSE,POINT OF CARE 64 MG/DL (70-110)
[2018-08-03 07:04] LABS: GLUCOMETER DEV NAME(LOC) 3E.C; GLUCOSE,POINT OF CARE 116 MG/DL (70-110)
[2018-08-03] MEDS: DOCUSATE SODIUM 100 MG CAPSULE PO SCH ×2 (09:00→16:38)
[2018-08-03 09:22] VITALS: BP 146/67
[2018-08-03] MEDS: MULTIVITAMINS WITH MINERALS, THERAPEUTIC TABLET PO SCH (10:27)
[2018-08-03] MEDS: LISINOPRIL 20 MG TABLET PO SCH (10:27)
[2018-08-03] MEDS: DIVALPROEX SODIUM 500 MG ER TABLET PO SCH ×2 (10:27→16:38)
[2018-08-03] MEDS: BENZTROPINE MESYLATE 1 MG TABLET PO SCH ×2 (10:27→16:38)
[2018-08-03] MEDS: NEOMYCIN/BACITRACIN/POLYMYXIN B 30 GM OINTMENT TP SCH ×2 (10:28→16:38)
[2018-08-03] MEDS: FOLIC ACID 1 MG TABLET PO SCH (10:28)
[2018-08-03] MEDS: CHOLECALCIFEROL (VIT D3) 2,000 UNITS TABLET PO SCH (10:28)
[2018-08-03 16:00] VITALS: BP 137/88
[2018-08-03 18:43] LABS: GLUCOMETER DEV NAME(LOC) 3E.C; GLUCOSE,POINT OF CARE 118 MG/DL (70-110)
[2018-08-03] MEDS: HALOPERIDOL 10 MG TABLET PO SCH (20:06)
[2018-08-03] MEDS ORDERED: LORazepam 2 MG TABLET PO PRN (20:15)
[2018-08-03] MEDS ORDERED: ZOLPIDEM TARTRATE 10 MG TABLET PO PRN (20:15)
[2018-08-04 06:39] LABS: GLUCOMETER DEV NAME(LOC) 3E.C; GLUCOSE,POINT OF CARE 74 MG/DL (70-110)
[2018-08-04 08:00] VITALS: BP 154/96
[2018-08-04] MEDS: NEOMYCIN/BACITRACIN/POLYMYXIN B 30 GM OINTMENT TP SCH (09:00)
[2018-08-04] MEDS: DOCUSATE SODIUM 100 MG CAPSULE PO SCH ×2 (09:00→09:27)
[2018-08-04] MEDS: BENZTROPINE MESYLATE 1 MG TABLET PO SCH (09:26)
[2018-08-04] MEDS: DIVALPROEX SODIUM 500 MG ER TABLET PO SCH (09:26)
[2018-08-04] MEDS: LISINOPRIL 20 MG TABLET PO SCH (09:26)
[2018-08-04] MEDS: CHOLECALCIFEROL (VIT D3) 2,000 UNITS TABLET PO SCH (09:27)
[2018-08-04] MEDS: FOLIC ACID 1 MG TABLET PO SCH (09:27)
[2018-08-04] MEDS: MULTIVITAMINS WITH MINERALS, THERAPEUTIC TABLET PO SCH (09:27)
[2018-08-04] MEDS ORDERED: HALOPERIDOL DECANOATE 100 MG/ML VIAL IM ONE (13:00)
[2018-08-04] MEDS ORDERED: HALO100V4 IM (13:52)
[2018-08-04] MEDS ORDERED: HALO10 PO (13:52)
[2018-08-04] MEDS ORDERED: DSS100 PO (13:57)
[2018-08-04] MEDS ORDERED: MULT-1239 PO (13:57)
== END 2018-08-04 15:20 | disposition home or self-care (01) | DRG 750 ==
LOC: 3EC 20:45
PROVIDERS: ADMIT Psychiatry & Neurology Psychiatry; ATTEND Psychiatry & Neurology Psychiatry
DX: F20.0 Paranoid schizophrenia (principal); G25.9 Extrapyramidal and movement disorder, unspecified; E16.2 Hypoglycemia, unspecified; E55.9 Vitamin D deficiency, unspecified; F12.90 Cannabis use, unspecified, uncomplicated; F17.200 Nicotine dependence, unspecified, uncomplicated; I10 Essential (primary) hypertension; Z79.899 Other long term (current) drug therapy; Z91.14 Patient's other noncompliance with medication regimen; Z91.19 Patient's noncompliance with other medical treatment and regimen; Z23 Encounter for immunization
CPT/HCPCS: 83036; 84443; 87081; 90686; J1631

== ENCOUNTER 2018-09-20 09:02 | Inpatient (IN) | payer MEDICAID, OTHER ==
[~2018-09-20] VITALS: Ht 190.5 cm; Wt 122.5 kg
[~2018-09-20 09:02] MED LIST changes: +DIVA500T52 PO; +DSS100 PO; +HALO10 PO; +HALO100V4 IM; +MULT-1239 PO
[2018-09-20] MEDS ORDERED: ACETAMINOPHEN 325 MG TABLET PO PRN ×2 (15:30→15:45)
[2018-09-20] MEDS ORDERED: MAGNESIUM HYDROXIDE SUSPENSION 30 ML UDCUP PO PRN (15:45)
[2018-09-20] MEDS ORDERED: LOPERAMIDE HCL 2 MG CAPSULE PO PRN (15:45)
[2018-09-20] MEDS ORDERED: MAG HYDROX/AL HYDROX/SIMETH ES 30 ML SUSPENSION UDCUP PO PRN (15:45)
[2018-09-20] MEDS ORDERED: ONDANSETRON HCL 4 MG TABLET PO PRN (15:45)
[2018-09-20] MEDS ORDERED: -PHARMACY VACCINE NOTE- MISC ONE (15:45)
[2018-09-20] MEDS ORDERED: IBUPROFEN 400 MG TABLET PO PRN (15:45)
[2018-09-20] MEDS ORDERED: GuaiFENesin/D-METHORPHAN [SUGAR-FREE] 200-20MG/10 ML SYRUP UDCUP PO PRN (15:45)
[2018-09-20] MEDS ORDERED: ALBUTEROL SULFATE HFA 90 MCG/PUFF 8 GM INHALER IH PRN (15:45)
[2018-09-20] MEDS ORDERED: NICOTINE 14 MG/24 HOUR PATCH TD PRN (15:45)
[2018-09-20] MEDS ORDERED: DOCUSATE SODIUM 100 MG CAPSULE PO PRN (15:45)
[2018-09-20] MEDS ORDERED: PETROLATUM,WHITE 28 GM JELLY TP PRN (15:45)
[2018-09-20] MEDS ORDERED: CloNIDine HCL 0.1 MG TABLET PO PRN (15:45)
[2018-09-20 16:00] VITALS: BP_SYST 111; BP_SYST 133; BP_DIAS 76; BP_DIAS 79
[2018-09-20 16:15] VITALS: BP 111/79
[2018-09-21 05:54] VITALS: BP 138/86
[2018-09-21] MEDS: DIVALPROEX SODIUM 500 MG ER TABLET PO SCH ×2 (10:25→20:50)
[2018-09-21] MEDS ORDERED: LORazepam 2 MG/ML VIAL ONE (11:50)
[2018-09-21] MEDS ORDERED: DiphenhydrAMINE HCL 50 MG/ML VIAL ONE (11:51)
[2018-09-21] MEDS ORDERED: HALOPERIDOL LACTATE 5 MG/ML VIAL ONE (11:51)
[2018-09-21] MEDS ORDERED: HALOPERIDOL LACTATE 5 MG/ML VIAL IM ONE (12:00)
[2018-09-21] MEDS ORDERED: LORazepam 2 MG/ML VIAL IM ONE (12:00)
[2018-09-21] MEDS ORDERED: DiphenhydrAMINE HCL 50 MG/ML VIAL IM ONE (12:00)
[2018-09-21 12:30] VITALS: BP 135/86
[2018-09-21 14:00] VITALS: BP 134/87
[2018-09-21] MEDS: HALOPERIDOL 10 MG TABLET PO SCH (20:50)
[2018-09-21] MEDS: BENZTROPINE MESYLATE 1 MG TABLET PO SCH (20:50)
[2018-09-22] MEDS: DIVALPROEX SODIUM 500 MG ER TABLET PO SCH ×2 (08:45→20:44)
[2018-09-22] MEDS: BENZTROPINE MESYLATE 1 MG TABLET PO SCH ×2 (08:45→20:45)
[2018-09-22] MEDS: LISINOPRIL 20 MG TABLET PO SCH (08:45)
[2018-09-22] MEDS: CHOLECALCIFEROL (VIT D3) 2,000 UNITS TABLET PO SCH (08:45)
[2018-09-22 09:05] VITALS: BP 118/72
[2018-09-22] MEDS: HALOPERIDOL 10 MG TABLET PO SCH (20:44)
[2018-09-22] MEDS: LORazepam 2 MG TABLET PO PRN (20:45)
[2018-09-22] MEDS: ZOLPIDEM TARTRATE 10 MG TABLET PO PRN (20:45)
[2018-09-23 08:19] VITALS: BP 130/56
[2018-09-23] MEDS: LISINOPRIL 20 MG TABLET PO SCH (08:50)
[2018-09-23] MEDS: CHOLECALCIFEROL (VIT D3) 2,000 UNITS TABLET PO SCH (08:50)
[2018-09-23] MEDS: BENZTROPINE MESYLATE 1 MG TABLET PO SCH ×2 (08:50→20:35)
[2018-09-23] MEDS: DIVALPROEX SODIUM 500 MG ER TABLET PO SCH ×2 (08:50→20:36)
[2018-09-23] MEDS ORDERED: HALOPERIDOL LACTATE 5 MG/ML VIAL IM ONE (16:30)
[2018-09-23] MEDS ORDERED: LORazepam 2 MG/ML VIAL IM ONE (16:30)
[2018-09-23] MEDS ORDERED: DiphenhydrAMINE HCL 50 MG/ML VIAL IM ONE (16:30)
[2018-09-23] MEDS: ZOLPIDEM TARTRATE 10 MG TABLET PO PRN (20:36)
[2018-09-23] MEDS: LORazepam 2 MG TABLET PO PRN (20:36)
[2018-09-23] MEDS: HALOPERIDOL 10 MG TABLET PO SCH (20:36)
[2018-09-24 08:19] VITALS: BP 108/69
[2018-09-24] MEDS: CHOLECALCIFEROL (VIT D3) 2,000 UNITS TABLET PO SCH (08:33)
[2018-09-24] MEDS: LORazepam 2 MG TABLET PO PRN ×2 (08:33→16:46)
[2018-09-24] MEDS: BENZTROPINE MESYLATE 1 MG TABLET PO SCH ×2 (08:33→21:06)
[2018-09-24] MEDS: DIVALPROEX SODIUM 500 MG ER TABLET PO SCH ×2 (08:33→21:06)
[2018-09-24] MEDS: LISINOPRIL 20 MG TABLET PO SCH (08:33)
[2018-09-24 16:25] VITALS: BP 111/66
[2018-09-24] MEDS: HALOPERIDOL 5 MG TABLET PO PRN (16:46)
[2018-09-24] MEDS: HALOPERIDOL 10 MG TABLET PO SCH (21:06)
[2018-09-24] MEDS: ZOLPIDEM TARTRATE 10 MG TABLET PO PRN (21:07)
[2018-09-25 08:14] VITALS: BP 113/62
[2018-09-25] MEDS: LISINOPRIL 20 MG TABLET PO SCH (08:17)
[2018-09-25] MEDS: DIVALPROEX SODIUM 500 MG ER TABLET PO SCH ×2 (08:17→20:53)
[2018-09-25] MEDS: CHOLECALCIFEROL (VIT D3) 2,000 UNITS TABLET PO SCH (08:18)
[2018-09-25] MEDS: BENZTROPINE MESYLATE 1 MG TABLET PO SCH ×2 (08:18→20:53)
[2018-09-25] MEDS: LORazepam 2 MG TABLET PO PRN ×3 (11:29→20:53)
[2018-09-25 16:17] VITALS: BP 110/62
[2018-09-25] MEDS: HALOPERIDOL 5 MG TABLET PO PRN (16:32)
[2018-09-25] MEDS: HALOPERIDOL 10 MG TABLET PO SCH (20:53)
[2018-09-25] MEDS: ZOLPIDEM TARTRATE 10 MG TABLET PO PRN (20:53)
[2018-09-26 06:04] VITALS: BP 118/73
[2018-09-26] MEDS: LISINOPRIL 20 MG TABLET PO SCH (08:57)
[2018-09-26] MEDS: DIVALPROEX SODIUM 500 MG ER TABLET PO SCH ×2 (08:57→21:31)
[2018-09-26] MEDS: CHOLECALCIFEROL (VIT D3) 2,000 UNITS TABLET PO SCH (08:58)
[2018-09-26] MEDS: BENZTROPINE MESYLATE 1 MG TABLET PO SCH ×2 (08:58→21:31)
[2018-09-26 09:28] VITALS: BP 104/77
[2018-09-26] MEDS: HALOPERIDOL 5 MG TABLET PO PRN (12:16)
[2018-09-26] MEDS: LORazepam 2 MG TABLET PO PRN ×2 (12:16→21:31)
[2018-09-26] MEDS: HALOPERIDOL 10 MG TABLET PO SCH (21:31)
[2018-09-26] MEDS: ZOLPIDEM TARTRATE 10 MG TABLET PO PRN (21:31)
[2018-09-27] MEDS: BENZTROPINE MESYLATE 1 MG TABLET PO SCH ×2 (08:26→21:08)
[2018-09-27] MEDS: LORazepam 2 MG TABLET PO PRN ×2 (08:26→17:39)
[2018-09-27] MEDS: LISINOPRIL 20 MG TABLET PO SCH (08:26)
[2018-09-27] MEDS: DIVALPROEX SODIUM 500 MG ER TABLET PO SCH ×2 (08:26→21:08)
[2018-09-27] MEDS: CHOLECALCIFEROL (VIT D3) 2,000 UNITS TABLET PO SCH (08:26)
[2018-09-27 08:30] VITALS: BP 116/64
[2018-09-27 16:58] VITALS: BP 135/76
[2018-09-27] MEDS: HALOPERIDOL 5 MG TABLET PO PRN (17:39)
[2018-09-27] MEDS: ZOLPIDEM TARTRATE 10 MG TABLET PO PRN (21:08)
[2018-09-27] MEDS: HALOPERIDOL 10 MG TABLET PO SCH (21:08)
[2018-09-28 03:35] VITALS: BP 127/75
[2018-09-28 08:32] VITALS: BP 112/77
[2018-09-28] MEDS: BENZTROPINE MESYLATE 1 MG TABLET PO SCH ×2 (08:47→20:43)
[2018-09-28] MEDS: DIVALPROEX SODIUM 500 MG ER TABLET PO SCH ×2 (08:47→20:43)
[2018-09-28] MEDS: LISINOPRIL 20 MG TABLET PO SCH (08:47)
[2018-09-28] MEDS: CHOLECALCIFEROL (VIT D3) 2,000 UNITS TABLET PO SCH (08:47)
[2018-09-28 16:00] VITALS: BP 126/87
[2018-09-28] MEDS: LORazepam 2 MG TABLET PO PRN (17:39)
[2018-09-28] MEDS: HALOPERIDOL 5 MG TABLET PO PRN (17:39)
[2018-09-28] MEDS: HALOPERIDOL 10 MG TABLET PO SCH (20:43)
[2018-09-28] MEDS: ZOLPIDEM TARTRATE 10 MG TABLET PO PRN (20:43)
[2018-09-29 06:12] VITALS: BP 122/78
[2018-09-29] MEDS: CHOLECALCIFEROL (VIT D3) 2,000 UNITS TABLET PO SCH (08:32)
[2018-09-29] MEDS: DIVALPROEX SODIUM 500 MG ER TABLET PO SCH ×2 (08:32→20:45)
[2018-09-29] MEDS: LORazepam 2 MG TABLET PO PRN ×3 (08:33→20:46)
[2018-09-29] MEDS: LISINOPRIL 20 MG TABLET PO SCH (08:33)
[2018-09-29] MEDS: BENZTROPINE MESYLATE 1 MG TABLET PO SCH ×2 (08:33→20:46)
[2018-09-29] MEDS: HALOPERIDOL 5 MG TABLET PO PRN (16:12)
[2018-09-29] MEDS: HALOPERIDOL 10 MG TABLET PO SCH (20:45)
[2018-09-29] MEDS: ZOLPIDEM TARTRATE 10 MG TABLET PO PRN (20:46)
[2018-09-30 08:22] VITALS: BP 116/81
[2018-09-30] MEDS: BENZTROPINE MESYLATE 1 MG TABLET PO SCH ×2 (08:30→20:14)
[2018-09-30] MEDS: CHOLECALCIFEROL (VIT D3) 2,000 UNITS TABLET PO SCH (08:30)
[2018-09-30] MEDS: DIVALPROEX SODIUM 500 MG ER TABLET PO SCH ×2 (08:30→20:14)
[2018-09-30] MEDS: LISINOPRIL 20 MG TABLET PO SCH (08:31)
[2018-09-30] MEDS: HALOPERIDOL 5 MG TABLET PO PRN (16:06)
[2018-09-30] MEDS: LORazepam 2 MG TABLET PO PRN (16:06)
[2018-09-30 17:11] VITALS: BP 126/78
[2018-09-30] MEDS: HALOPERIDOL 10 MG TABLET PO SCH (20:14)
[2018-09-30] MEDS: ZOLPIDEM TARTRATE 10 MG TABLET PO PRN (20:44)
[2018-10-01 06:26] VITALS: BP 123/78
[2018-10-01 08:18] VITALS: BP 112/65
[2018-10-01] MEDS: CHOLECALCIFEROL (VIT D3) 2,000 UNITS TABLET PO SCH (08:29)
[2018-10-01] MEDS: LISINOPRIL 20 MG TABLET PO SCH (08:30)
[2018-10-01] MEDS: DIVALPROEX SODIUM 500 MG ER TABLET PO SCH ×2 (08:30→20:43)
[2018-10-01] MEDS: BENZTROPINE MESYLATE 1 MG TABLET PO SCH ×2 (08:30→20:43)
[2018-10-01 16:35] VITALS: BP 102/60
[2018-10-01] MEDS: HALOPERIDOL 10 MG TABLET PO SCH (20:43)
[2018-10-01] MEDS: ZOLPIDEM TARTRATE 10 MG TABLET PO PRN (21:46)
[2018-10-01] MEDS: LORazepam 2 MG TABLET PO PRN (23:24)
[2018-10-02 01:35] VITALS: BP 140/97
[2018-10-02] MEDS: CHOLECALCIFEROL (VIT D3) 2,000 UNITS TABLET PO SCH (08:47)
[2018-10-02] MEDS: DIVALPROEX SODIUM 500 MG ER TABLET PO SCH ×2 (08:47→20:35)
[2018-10-02] MEDS: LISINOPRIL 20 MG TABLET PO SCH (08:47)
[2018-10-02] MEDS: BENZTROPINE MESYLATE 1 MG TABLET PO SCH ×2 (08:47→20:36)
[2018-10-02] MEDS: HALOPERIDOL 5 MG TABLET PO SCH (08:48)
[2018-10-02 16:00] VITALS: BP 106/74
[2018-10-02] MEDS: LORazepam 2 MG TABLET PO PRN (16:21)
[2018-10-02] MEDS: HALOPERIDOL 10 MG TABLET PO SCH (20:35)
[2018-10-03 06:10] VITALS: BP 114/72
[2018-10-03 08:21] VITALS: BP 107/64
[2018-10-03] MEDS: CHOLECALCIFEROL (VIT D3) 2,000 UNITS TABLET PO SCH (08:25)
[2018-10-03] MEDS: DIVALPROEX SODIUM 500 MG ER TABLET PO SCH ×2 (08:25→20:23)
[2018-10-03] MEDS: BENZTROPINE MESYLATE 1 MG TABLET PO SCH ×2 (08:25→20:23)
[2018-10-03] MEDS: LISINOPRIL 20 MG TABLET PO SCH (08:25)
[2018-10-03] MEDS: HALOPERIDOL 5 MG TABLET PO SCH (08:25)
[2018-10-03] MEDS: LORazepam 2 MG TABLET PO PRN ×2 (13:52→20:23)
[2018-10-03 16:35] VITALS: BP 110/65
[2018-10-03] MEDS: OLANZapine 5 MG RAPDIS TABLET PO PRN (19:29)
[2018-10-03] MEDS: HALOPERIDOL 10 MG TABLET PO SCH (20:23)
[2018-10-03] MEDS: ZOLPIDEM TARTRATE 10 MG TABLET PO PRN (20:23)
[2018-10-04 04:30] VITALS: BP 116/68
[2018-10-04] MEDS: HALOPERIDOL 5 MG TABLET PO SCH (08:07)
[2018-10-04] MEDS: LISINOPRIL 20 MG TABLET PO SCH (08:07)
[2018-10-04] MEDS: CHOLECALCIFEROL (VIT D3) 2,000 UNITS TABLET PO SCH (08:07)
[2018-10-04] MEDS: BENZTROPINE MESYLATE 1 MG TABLET PO SCH ×2 (08:07→20:08)
[2018-10-04] MEDS: DIVALPROEX SODIUM 500 MG ER TABLET PO SCH ×2 (08:07→20:08)
[2018-10-04 08:27] VITALS: BP 129/69
[2018-10-04] MEDS: LORazepam 2 MG TABLET PO PRN ×2 (11:24→23:56)
[2018-10-04 17:42] VITALS: BP 114/66
[2018-10-04] MEDS: HALOPERIDOL 10 MG TABLET PO SCH (20:08)
[2018-10-04] MEDS: ZOLPIDEM TARTRATE 10 MG TABLET PO PRN (23:56)
[2018-10-05 00:01] VITALS: BP 118/81
[2018-10-05 08:14] VITALS: BP 125/85
[2018-10-05] MEDS: DIVALPROEX SODIUM 500 MG ER TABLET PO SCH ×2 (09:04→20:32)
[2018-10-05] MEDS: LISINOPRIL 20 MG TABLET PO SCH (09:04)
[2018-10-05] MEDS: HALOPERIDOL 5 MG TABLET PO SCH (09:04)
[2018-10-05] MEDS: CHOLECALCIFEROL (VIT D3) 2,000 UNITS TABLET PO SCH (09:04)
[2018-10-05] MEDS: BENZTROPINE MESYLATE 1 MG TABLET PO SCH ×2 (09:05→20:33)
[2018-10-05 16:33] VITALS: BP 113/79
[2018-10-05] MEDS: OLANZapine 5 MG RAPDIS TABLET PO PRN (17:31)
[2018-10-05] MEDS: LORazepam 2 MG TABLET PO PRN (17:31)
[2018-10-05] MEDS: HALOPERIDOL 10 MG TABLET PO SCH (20:32)
[2018-10-06 06:11] VITALS: BP 117/74
[2018-10-06 08:49] VITALS: BP 110/110
[2018-10-06] MEDS: BENZTROPINE MESYLATE 1 MG TABLET PO SCH ×2 (08:59→20:52)
[2018-10-06] MEDS: DIVALPROEX SODIUM 500 MG ER TABLET PO SCH ×2 (08:59→20:52)
[2018-10-06] MEDS: HALOPERIDOL 5 MG TABLET PO SCH (08:59)
[2018-10-06] MEDS: LISINOPRIL 20 MG TABLET PO SCH (08:59)
[2018-10-06] MEDS: CHOLECALCIFEROL (VIT D3) 2,000 UNITS TABLET PO SCH (09:00)
[2018-10-06 16:00] VITALS: BP 108/71
[2018-10-06] MEDS: LORazepam 2 MG TABLET PO PRN ×2 (17:14→21:15)
[2018-10-06] MEDS: OLANZapine 5 MG RAPDIS TABLET PO PRN (17:14)
[2018-10-06] MEDS: HALOPERIDOL 10 MG TABLET PO SCH (20:52)
[2018-10-06] MEDS: ZOLPIDEM TARTRATE 10 MG TABLET PO PRN (20:52)
[2018-10-07 06:59] VITALS: BP 115/74
[2018-10-07] MEDS: DIVALPROEX SODIUM 500 MG ER TABLET PO SCH ×2 (08:44→20:21)
[2018-10-07] MEDS: BENZTROPINE MESYLATE 1 MG TABLET PO SCH ×2 (08:44→20:21)
[2018-10-07] MEDS: LISINOPRIL 20 MG TABLET PO SCH (08:44)
[2018-10-07] MEDS: HALOPERIDOL 5 MG TABLET PO SCH (08:44)
[2018-10-07] MEDS: CHOLECALCIFEROL (VIT D3) 2,000 UNITS TABLET PO SCH (08:44)
[2018-10-07 09:28] VITALS: BP 102/60
[2018-10-07 16:00] VITALS: BP 110/67
[2018-10-07] MEDS: LORazepam 2 MG TABLET PO PRN (20:21)
[2018-10-07] MEDS: HALOPERIDOL 10 MG TABLET PO SCH (20:21)
[2018-10-07] MEDS: ZOLPIDEM TARTRATE 10 MG TABLET PO PRN (20:22)
[2018-10-08] MEDS: LORazepam 2 MG TABLET PO PRN ×3 (03:56→20:41)
[2018-10-08] MEDS: LISINOPRIL 20 MG TABLET PO SCH (08:08)
[2018-10-08] MEDS: HALOPERIDOL 5 MG TABLET PO SCH (08:08)
[2018-10-08] MEDS: CHOLECALCIFEROL (VIT D3) 2,000 UNITS TABLET PO SCH (08:08)
[2018-10-08] MEDS: BENZTROPINE MESYLATE 1 MG TABLET PO SCH ×2 (08:08→20:41)
[2018-10-08] MEDS: DIVALPROEX SODIUM 500 MG ER TABLET PO SCH ×2 (08:08→20:41)
[2018-10-08 08:20] VITALS: BP 109/55
[2018-10-08] MEDS: OLANZapine 5 MG RAPDIS TABLET PO PRN (16:24)
[2018-10-08] MEDS: HALOPERIDOL 10 MG TABLET PO SCH (20:41)
[2018-10-08] MEDS: ZOLPIDEM TARTRATE 10 MG TABLET PO PRN (20:41)
[2018-10-09 02:06] VITALS: BP 118/78
[2018-10-09] MEDS: OLANZapine 5 MG RAPDIS TABLET PO PRN ×2 (02:48→20:52)
[2018-10-09] MEDS: LORazepam 2 MG TABLET PO PRN ×2 (02:48→20:52)
[2018-10-09 09:12] VITALS: BP 94/62
[2018-10-09] MEDS: CHOLECALCIFEROL (VIT D3) 2,000 UNITS TABLET PO SCH (09:37)
[2018-10-09] MEDS: BENZTROPINE MESYLATE 1 MG TABLET PO SCH ×2 (09:37→20:52)
[2018-10-09] MEDS: HALOPERIDOL 5 MG TABLET PO SCH (09:38)
[2018-10-09] MEDS: DIVALPROEX SODIUM 500 MG ER TABLET PO SCH ×2 (09:38→20:52)
[2018-10-09] MEDS: LISINOPRIL 20 MG TABLET PO SCH (09:38)
[2018-10-09 16:08] VITALS: BP 102/59
[2018-10-09] MEDS: HALOPERIDOL 10 MG TABLET PO SCH (20:52)
[2018-10-10 06:35] VITALS: BP 131/78
[2018-10-10 08:03] VITALS: BP 101/57
[2018-10-10] MEDS: BENZTROPINE MESYLATE 1 MG TABLET PO SCH ×2 (08:28→20:12)
[2018-10-10] MEDS: DIVALPROEX SODIUM 500 MG ER TABLET PO SCH ×2 (08:28→20:12)
[2018-10-10] MEDS: HALOPERIDOL 5 MG TABLET PO SCH (08:29)
[2018-10-10] MEDS: LORazepam 2 MG TABLET PO PRN ×3 (08:29→21:18)
[2018-10-10] MEDS: CHOLECALCIFEROL (VIT D3) 2,000 UNITS TABLET PO SCH (08:29)
[2018-10-10] MEDS: LISINOPRIL 20 MG TABLET PO SCH (08:29)
[2018-10-10] MEDS: HALOPERIDOL 10 MG TABLET PO SCH (20:12)
[2018-10-10] MEDS: ZOLPIDEM TARTRATE 10 MG TABLET PO PRN (21:18)
[2018-10-11 06:09] VITALS: BP 103/61
[2018-10-11] MEDS: BENZTROPINE MESYLATE 1 MG TABLET PO SCH ×2 (08:46→21:00)
[2018-10-11] MEDS: HALOPERIDOL 5 MG TABLET PO SCH (08:46)
[2018-10-11] MEDS: DIVALPROEX SODIUM 500 MG ER TABLET PO SCH ×2 (08:46→21:00)
[2018-10-11] MEDS: LISINOPRIL 20 MG TABLET PO SCH (08:46)
[2018-10-11] MEDS: CHOLECALCIFEROL (VIT D3) 2,000 UNITS TABLET PO SCH (08:46)
[2018-10-11 09:12] VITALS: BP 118/73
[2018-10-11] MEDS: LORazepam 2 MG TABLET PO PRN ×2 (11:35→21:00)
[2018-10-11] MEDS: OLANZapine 5 MG RAPDIS TABLET PO PRN (13:45)
[2018-10-11 16:36] VITALS: BP 115/80
[2018-10-11] MEDS: ZOLPIDEM TARTRATE 10 MG TABLET PO PRN (21:00)
[2018-10-11] MEDS: HALOPERIDOL 10 MG TABLET PO SCH (21:00)
[2018-10-12 05:30] VITALS: BP 113/90
[2018-10-12 08:03] VITALS: BP 101/57
[2018-10-12] MEDS: DIVALPROEX SODIUM 500 MG ER TABLET PO SCH ×2 (08:58→20:45)
[2018-10-12] MEDS: BENZTROPINE MESYLATE 1 MG TABLET PO SCH ×2 (08:58→20:46)
[2018-10-12] MEDS: CHOLECALCIFEROL (VIT D3) 2,000 UNITS TABLET PO SCH (08:59)
[2018-10-12] MEDS: HALOPERIDOL 5 MG TABLET PO SCH (08:59)
[2018-10-12] MEDS: LISINOPRIL 20 MG TABLET PO SCH (08:59)
[2018-10-12 20:11] VITALS: BP 100/62
[2018-10-12] MEDS: HALOPERIDOL 10 MG TABLET PO SCH (20:45)
[2018-10-12] MEDS: ZOLPIDEM TARTRATE 10 MG TABLET PO PRN (20:46)
[2018-10-12] MEDS: LORazepam 2 MG TABLET PO PRN (20:46)
[2018-10-13 00:30] VITALS: BP 117/78
[2018-10-13] MEDS: OLANZapine 5 MG RAPDIS TABLET PO PRN (00:32)
[2018-10-13] MEDS: LORazepam 2 MG TABLET PO PRN ×2 (00:32→20:40)
[2018-10-13 08:17] VITALS: BP 106/65
[2018-10-13] MEDS: DIVALPROEX SODIUM 500 MG ER TABLET PO SCH ×2 (09:31→20:39)
[2018-10-13] MEDS: BENZTROPINE MESYLATE 1 MG TABLET PO SCH ×2 (09:31→20:39)
[2018-10-13] MEDS: HALOPERIDOL 5 MG TABLET PO SCH (09:31)
[2018-10-13] MEDS: LISINOPRIL 20 MG TABLET PO SCH (09:31)
[2018-10-13] MEDS: CHOLECALCIFEROL (VIT D3) 2,000 UNITS TABLET PO SCH (09:31)
[2018-10-13 16:00] VITALS: BP 118/76
[2018-10-13] MEDS: HALOPERIDOL 10 MG TABLET PO SCH (20:39)
[2018-10-13] MEDS: ZOLPIDEM TARTRATE 10 MG TABLET PO PRN (20:40)
[2018-10-14 06:42] VITALS: BP 110/75
[2018-10-14 08:27] VITALS: BP 103/52
[2018-10-14] MEDS: BENZTROPINE MESYLATE 1 MG TABLET PO SCH ×2 (08:58→20:29)
[2018-10-14] MEDS: CHOLECALCIFEROL (VIT D3) 2,000 UNITS TABLET PO SCH (08:58)
[2018-10-14] MEDS: HALOPERIDOL 5 MG TABLET PO SCH (08:58)
[2018-10-14] MEDS: DIVALPROEX SODIUM 500 MG ER TABLET PO SCH ×2 (08:59→20:29)
[2018-10-14] MEDS: LISINOPRIL 20 MG TABLET PO SCH (08:59)
[2018-10-14 16:09] VITALS: BP 112/63
[2018-10-14] MEDS: OLANZapine 5 MG RAPDIS TABLET PO PRN (16:47)
[2018-10-14] MEDS: LORazepam 2 MG TABLET PO PRN (16:47)
[2018-10-14] MEDS: HALOPERIDOL 10 MG TABLET PO SCH (20:29)
[2018-10-14] MEDS: ZOLPIDEM TARTRATE 10 MG TABLET PO PRN (20:29)
[2018-10-15 06:06] VITALS: BP 114/61
[2018-10-15] MEDS: DIVALPROEX SODIUM 500 MG ER TABLET PO SCH ×2 (08:17→20:24)
[2018-10-15] MEDS: HALOPERIDOL 5 MG TABLET PO SCH (08:17)
[2018-10-15] MEDS: BENZTROPINE MESYLATE 1 MG TABLET PO SCH ×2 (08:17→20:24)
[2018-10-15] MEDS: CHOLECALCIFEROL (VIT D3) 2,000 UNITS TABLET PO SCH (08:17)
[2018-10-15] MEDS: LISINOPRIL 20 MG TABLET PO SCH (08:17)
[2018-10-15 08:32] VITALS: BP 132/82
[2018-10-15 16:10] VITALS: BP 114/61
[2018-10-15] MEDS: HALOPERIDOL 10 MG TABLET PO SCH (20:24)
[2018-10-15] MEDS: ZOLPIDEM TARTRATE 10 MG TABLET PO PRN (23:03)
[2018-10-16 05:57] VITALS: BP 119/62
[2018-10-16 08:11] VITALS: BP 105/59
[2018-10-16] MEDS: HALOPERIDOL 5 MG TABLET PO SCH (08:51)
[2018-10-16] MEDS: LISINOPRIL 20 MG TABLET PO SCH (08:51)
[2018-10-16] MEDS: DIVALPROEX SODIUM 500 MG ER TABLET PO SCH ×2 (08:51→20:28)
[2018-10-16] MEDS: CHOLECALCIFEROL (VIT D3) 2,000 UNITS TABLET PO SCH (08:51)
[2018-10-16] MEDS: BENZTROPINE MESYLATE 1 MG TABLET PO SCH ×2 (08:51→20:28)
[2018-10-16 16:30] VITALS: BP 115/73
[2018-10-16] MEDS: HALOPERIDOL 10 MG TABLET PO SCH (20:28)
[2018-10-16] MEDS: LORazepam 2 MG TABLET PO PRN (20:28)
[2018-10-16] MEDS: ZOLPIDEM TARTRATE 10 MG TABLET PO PRN (20:28)
[2018-10-17 03:15] VITALS: BP 118/81
[2018-10-17 08:03] VITALS: BP 134/63
[2018-10-17] MEDS: BENZTROPINE MESYLATE 1 MG TABLET PO SCH ×2 (08:48→20:42)
[2018-10-17] MEDS: LISINOPRIL 20 MG TABLET PO SCH (08:49)
[2018-10-17] MEDS: HALOPERIDOL 5 MG TABLET PO SCH (08:49)
[2018-10-17] MEDS: DIVALPROEX SODIUM 500 MG ER TABLET PO SCH ×2 (08:49→20:42)
[2018-10-17] MEDS: CHOLECALCIFEROL (VIT D3) 2,000 UNITS TABLET PO SCH (08:49)
[2018-10-17] MEDS: LORazepam 2 MG TABLET PO PRN ×2 (12:57→20:42)
[2018-10-17 16:21] VITALS: BP 102/66
[2018-10-17] MEDS: ZOLPIDEM TARTRATE 10 MG TABLET PO PRN (20:42)
[2018-10-17] MEDS: HALOPERIDOL 10 MG TABLET PO SCH (20:42)
[2018-10-18 06:19] VITALS: BP 118/76
[2018-10-18 08:20] VITALS: BP 110/59
[2018-10-18] MEDS: BENZTROPINE MESYLATE 1 MG TABLET PO SCH ×2 (08:44→20:53)
[2018-10-18] MEDS: CHOLECALCIFEROL (VIT D3) 2,000 UNITS TABLET PO SCH (08:44)
[2018-10-18] MEDS: HALOPERIDOL 5 MG TABLET PO SCH (08:44)
[2018-10-18] MEDS: DIVALPROEX SODIUM 500 MG ER TABLET PO SCH ×2 (08:44→20:53)
[2018-10-18] MEDS: LISINOPRIL 20 MG TABLET PO SCH (08:44)
[2018-10-18] MEDS: LORazepam 2 MG TABLET PO PRN ×2 (13:29→20:54)
[2018-10-18 16:00] VITALS: BP 108/65
[2018-10-18] MEDS: HALOPERIDOL 10 MG TABLET PO SCH (20:53)
[2018-10-18] MEDS: ZOLPIDEM TARTRATE 10 MG TABLET PO PRN (20:54)
[2018-10-19 01:20] VITALS: BP 110/79
[2018-10-19 08:00] VITALS: BP 118/63
[2018-10-19] MEDS: LISINOPRIL 20 MG TABLET PO SCH (08:38)
[2018-10-19] MEDS: CHOLECALCIFEROL (VIT D3) 2,000 UNITS TABLET PO SCH (08:38)
[2018-10-19] MEDS: DIVALPROEX SODIUM 500 MG ER TABLET PO SCH ×2 (08:38→20:15)
[2018-10-19] MEDS: BENZTROPINE MESYLATE 1 MG TABLET PO SCH ×2 (08:38→20:16)
[2018-10-19] MEDS: HALOPERIDOL 5 MG TABLET PO SCH (08:38)
[2018-10-19 16:33] VITALS: BP 106/57
[2018-10-19] MEDS: HALOPERIDOL 10 MG TABLET PO SCH (20:15)
[2018-10-19] MEDS: ZOLPIDEM TARTRATE 10 MG TABLET PO PRN (20:16)
[2018-10-19] MEDS: LORazepam 2 MG TABLET PO PRN (20:16)
[2018-10-20 05:00] VITALS: BP 110/62
[2018-10-20 08:11] VITALS: BP 107/63
[2018-10-20] MEDS: HALOPERIDOL 5 MG TABLET PO SCH (08:56)
[2018-10-20] MEDS: DIVALPROEX SODIUM 500 MG ER TABLET PO SCH ×2 (08:56→21:33)
[2018-10-20] MEDS: CHOLECALCIFEROL (VIT D3) 2,000 UNITS TABLET PO SCH (08:56)
[2018-10-20] MEDS: BENZTROPINE MESYLATE 1 MG TABLET PO SCH ×2 (08:56→21:33)
[2018-10-20] MEDS: LISINOPRIL 20 MG TABLET PO SCH (08:56)
[2018-10-20 16:00] VITALS: BP 106/62
[2018-10-20] MEDS: HALOPERIDOL 10 MG TABLET PO SCH (21:33)
[2018-10-21 00:27] VITALS: BP 125/83
[2018-10-21 09:08] VITALS: BP 112/60
[2018-10-21] MEDS: LISINOPRIL 20 MG TABLET PO SCH (09:18)
[2018-10-21] MEDS: HALOPERIDOL 5 MG TABLET PO SCH (09:18)
[2018-10-21] MEDS: BENZTROPINE MESYLATE 1 MG TABLET PO SCH ×2 (09:19→20:54)
[2018-10-21] MEDS: CHOLECALCIFEROL (VIT D3) 2,000 UNITS TABLET PO SCH (09:19)
[2018-10-21] MEDS: DIVALPROEX SODIUM 500 MG ER TABLET PO SCH ×2 (09:19→20:54)
[2018-10-21] MEDS: LORazepam 2 MG TABLET PO PRN ×2 (09:19→20:54)
[2018-10-21] MEDS ORDERED: TUBERCULIN, PURIFIED PROTEIN DERIVATIVE 5 TU/0.1 ML SYRINGE ID ONE (15:15)
[2018-10-21 16:25] VITALS: BP 107/64
[2018-10-21] MEDS: ZOLPIDEM TARTRATE 10 MG TABLET PO PRN (20:54)
[2018-10-21] MEDS: HALOPERIDOL 10 MG TABLET PO SCH (20:54)
[2018-10-22 06:34] VITALS: BP 119/75
[2018-10-22 08:07] VITALS: BP 126/58
[2018-10-22] MEDS: HALOPERIDOL 5 MG TABLET PO SCH (08:40)
[2018-10-22] MEDS: DIVALPROEX SODIUM 500 MG ER TABLET PO SCH ×2 (08:40→20:54)
[2018-10-22] MEDS: LISINOPRIL 20 MG TABLET PO SCH (08:40)
[2018-10-22] MEDS: BENZTROPINE MESYLATE 1 MG TABLET PO SCH ×2 (08:40→20:54)
[2018-10-22] MEDS: CHOLECALCIFEROL (VIT D3) 2,000 UNITS TABLET PO SCH (09:08)
[2018-10-22 16:23] VITALS: BP 108/66
[2018-10-22] MEDS: LORazepam 2 MG TABLET PO PRN (20:54)
[2018-10-22] MEDS: HALOPERIDOL 10 MG TABLET PO SCH (20:54)
[2018-10-22] MEDS: ZOLPIDEM TARTRATE 10 MG TABLET PO PRN (20:54)
[2018-10-23 06:01] VITALS: BP 97/60
[2018-10-23 06:07] VITALS: BP 109/71
[2018-10-23 08:20] VITALS: BP 102/58
[2018-10-23] MEDS: CHOLECALCIFEROL (VIT D3) 2,000 UNITS TABLET PO SCH (08:43)
[2018-10-23] MEDS: HALOPERIDOL 5 MG TABLET PO SCH (08:44)
[2018-10-23] MEDS: BENZTROPINE MESYLATE 1 MG TABLET PO SCH ×2 (08:44→21:42)
[2018-10-23] MEDS: LISINOPRIL 20 MG TABLET PO SCH (08:44)
[2018-10-23] MEDS: DIVALPROEX SODIUM 500 MG ER TABLET PO SCH ×2 (08:44→21:42)
[2018-10-23 16:56] VITALS: BP 113/65
[2018-10-23] MEDS: LORazepam 2 MG TABLET PO PRN (17:01)
[2018-10-23] MEDS: OLANZapine 5 MG RAPDIS TABLET PO PRN (17:02)
[2018-10-23] MEDS: HALOPERIDOL 10 MG TABLET PO SCH (21:42)
[2018-10-23] MEDS: ZOLPIDEM TARTRATE 10 MG TABLET PO PRN (21:43)
[2018-10-24 06:05] VITALS: BP 117/78
[2018-10-24 08:45] VITALS: BP 108/72
[2018-10-24] MEDS: DIVALPROEX SODIUM 500 MG ER TABLET PO SCH ×2 (09:02→20:40)
[2018-10-24] MEDS: LISINOPRIL 20 MG TABLET PO SCH (09:03)
[2018-10-24] MEDS: HALOPERIDOL 5 MG TABLET PO SCH (09:03)
[2018-10-24] MEDS: BENZTROPINE MESYLATE 1 MG TABLET PO SCH ×2 (09:03→20:41)
[2018-10-24] MEDS: CHOLECALCIFEROL (VIT D3) 2,000 UNITS TABLET PO SCH (09:03)
[2018-10-24 17:21] VITALS: BP 108/66
[2018-10-24] MEDS: HALOPERIDOL 10 MG TABLET PO SCH (20:41)
[2018-10-24] MEDS: ZOLPIDEM TARTRATE 10 MG TABLET PO PRN (22:04)
[2018-10-25 05:19] VITALS: BP 112/74
[2018-10-25 08:09] VITALS: BP 107/63
[2018-10-25] MEDS: DIVALPROEX SODIUM 500 MG ER TABLET PO SCH ×2 (08:39→20:57)
[2018-10-25] MEDS: BENZTROPINE MESYLATE 1 MG TABLET PO SCH ×2 (08:39→20:57)
[2018-10-25] MEDS: CHOLECALCIFEROL (VIT D3) 2,000 UNITS TABLET PO SCH (08:39)
[2018-10-25] MEDS: HALOPERIDOL 5 MG TABLET PO SCH (08:39)
[2018-10-25] MEDS: LISINOPRIL 20 MG TABLET PO SCH (08:39)
[2018-10-25] MEDS: LORazepam 2 MG TABLET PO PRN ×2 (13:49→19:07)
[2018-10-25 16:00] VITALS: BP 138/86
[2018-10-25] MEDS: HALOPERIDOL 10 MG TABLET PO SCH (20:56)
[2018-10-25] MEDS: ZOLPIDEM TARTRATE 10 MG TABLET PO PRN (20:57)
[2018-10-26 04:15] VITALS: BP 122/84
[2018-10-26] MEDS: DIVALPROEX SODIUM 500 MG ER TABLET PO SCH ×2 (08:33→20:37)
[2018-10-26] MEDS: CHOLECALCIFEROL (VIT D3) 2,000 UNITS TABLET PO SCH (08:33)
[2018-10-26] MEDS: BENZTROPINE MESYLATE 1 MG TABLET PO SCH ×2 (08:33→20:37)
[2018-10-26] MEDS: HALOPERIDOL 5 MG TABLET PO SCH (08:33)
[2018-10-26] MEDS: LISINOPRIL 20 MG TABLET PO SCH (08:33)
[2018-10-26 08:35] VITALS: BP 105/60
[2018-10-26] MEDS: LORazepam 2 MG TABLET PO PRN ×2 (09:46→17:11)
[2018-10-26 16:11] VITALS: BP 113/60
[2018-10-26] MEDS: OLANZapine 5 MG RAPDIS TABLET PO PRN (17:11)
[2018-10-26] MEDS: ZOLPIDEM TARTRATE 10 MG TABLET PO PRN (20:37)
[2018-10-26] MEDS: HALOPERIDOL 10 MG TABLET PO SCH (20:37)
[2018-10-27 01:18] VITALS: BP 116/67
[2018-10-27 08:05] VITALS: BP 103/55
[2018-10-27] MEDS: LORazepam 2 MG TABLET PO PRN ×3 (08:33→20:41)
[2018-10-27] MEDS: CHOLECALCIFEROL (VIT D3) 2,000 UNITS TABLET PO SCH (08:33)
[2018-10-27] MEDS: DIVALPROEX SODIUM 500 MG ER TABLET PO SCH ×2 (08:33→20:41)
[2018-10-27] MEDS: HALOPERIDOL 5 MG TABLET PO SCH (08:33)
[2018-10-27] MEDS: LISINOPRIL 20 MG TABLET PO SCH (08:33)
[2018-10-27] MEDS: BENZTROPINE MESYLATE 1 MG TABLET PO SCH ×2 (08:33→20:41)
[2018-10-27 16:21] VITALS: BP 114/73
[2018-10-27] MEDS: ZOLPIDEM TARTRATE 10 MG TABLET PO PRN (20:41)
[2018-10-27] MEDS: HALOPERIDOL 10 MG TABLET PO SCH (20:41)
[2018-10-27] MEDS: OLANZapine 5 MG RAPDIS TABLET PO PRN (22:03)
[2018-10-28 03:47] VITALS: BP 119/95
[2018-10-28 08:09] VITALS: BP 142/72
[2018-10-28] MEDS: DIVALPROEX SODIUM 500 MG ER TABLET PO SCH ×2 (08:24→20:30)
[2018-10-28] MEDS: HALOPERIDOL 5 MG TABLET PO SCH (08:24)
[2018-10-28] MEDS: LISINOPRIL 20 MG TABLET PO SCH (08:24)
[2018-10-28] MEDS: BENZTROPINE MESYLATE 1 MG TABLET PO SCH ×2 (08:24→20:30)
[2018-10-28] MEDS: CHOLECALCIFEROL (VIT D3) 2,000 UNITS TABLET PO SCH (08:24)
[2018-10-28 16:10] VITALS: BP 119/75
[2018-10-28] MEDS: LORazepam 2 MG TABLET PO PRN (16:43)
[2018-10-28] MEDS: HALOPERIDOL 10 MG TABLET PO SCH (20:30)
[2018-10-28] MEDS: ZOLPIDEM TARTRATE 10 MG TABLET PO PRN (20:30)
[2018-10-29 05:59] VITALS: BP 104/77
[2018-10-29] MEDS: LORazepam 2 MG TABLET PO PRN ×3 (06:18→21:08)
[2018-10-29] MEDS: DIVALPROEX SODIUM 500 MG ER TABLET PO SCH ×2 (08:27→21:08)
[2018-10-29] MEDS: LISINOPRIL 20 MG TABLET PO SCH (08:27)
[2018-10-29] MEDS: BENZTROPINE MESYLATE 1 MG TABLET PO SCH ×2 (08:27→21:08)
[2018-10-29] MEDS: CHOLECALCIFEROL (VIT D3) 2,000 UNITS TABLET PO SCH (08:27)
[2018-10-29] MEDS: HALOPERIDOL 5 MG TABLET PO SCH (08:27)
[2018-10-29 09:00] VITALS: BP 122/87
[2018-10-29 16:00] VITALS: BP 113/69
[2018-10-29] MEDS: ZOLPIDEM TARTRATE 10 MG TABLET PO PRN (21:08)
[2018-10-29] MEDS: HALOPERIDOL 10 MG TABLET PO SCH (21:08)
[2018-10-30 05:14] VITALS: BP 96/71
[2018-10-30] MEDS: HALOPERIDOL 5 MG TABLET PO SCH (08:16)
[2018-10-30] MEDS: BENZTROPINE MESYLATE 1 MG TABLET PO SCH ×2 (08:16→20:18)
[2018-10-30] MEDS: LISINOPRIL 20 MG TABLET PO SCH (08:16)
[2018-10-30] MEDS: CHOLECALCIFEROL (VIT D3) 2,000 UNITS TABLET PO SCH (08:16)
[2018-10-30] MEDS: DIVALPROEX SODIUM 500 MG ER TABLET PO SCH ×2 (08:16→20:18)
[2018-10-30 09:42] VITALS: BP 100/60
[2018-10-30] MEDS: LORazepam 2 MG TABLET PO PRN ×2 (14:20→20:18)
[2018-10-30 16:39] VITALS: BP 124/65
[2018-10-30] MEDS: HALOPERIDOL 10 MG TABLET PO SCH (20:18)
[2018-10-30] MEDS: ZOLPIDEM TARTRATE 10 MG TABLET PO PRN (20:18)
[2018-10-31 01:20] VITALS: BP 108/73
[2018-10-31 08:02] VITALS: BP 102/56
[2018-10-31] MEDS: DIVALPROEX SODIUM 500 MG ER TABLET PO SCH ×2 (08:31→20:39)
[2018-10-31] MEDS: BENZTROPINE MESYLATE 1 MG TABLET PO SCH ×2 (08:31→20:39)
[2018-10-31] MEDS: CHOLECALCIFEROL (VIT D3) 2,000 UNITS TABLET PO SCH (08:31)
[2018-10-31] MEDS: LISINOPRIL 20 MG TABLET PO SCH (08:31)
[2018-10-31] MEDS: HALOPERIDOL 5 MG TABLET PO SCH (08:31)
[2018-10-31 16:48] VITALS: BP 124/76
[2018-10-31] MEDS: LORazepam 2 MG TABLET PO PRN (19:12)
[2018-10-31] MEDS: OLANZapine 5 MG RAPDIS TABLET PO PRN (19:12)
[2018-10-31] MEDS: HALOPERIDOL 10 MG TABLET PO SCH (20:39)
[2018-10-31] MEDS: ZOLPIDEM TARTRATE 10 MG TABLET PO PRN (20:40)
[2018-11-01 02:41] VITALS: BP_SYST 116; BP_SYST 125; BP_DIAS 72; BP_DIAS 94
[2018-11-01 08:12] VITALS: BP 115/73
[2018-11-01] MEDS: HALOPERIDOL 5 MG TABLET PO SCH (08:33)
[2018-11-01] MEDS: CHOLECALCIFEROL (VIT D3) 2,000 UNITS TABLET PO SCH (08:33)
[2018-11-01] MEDS: DIVALPROEX SODIUM 500 MG ER TABLET PO SCH ×2 (08:33→21:09)
[2018-11-01] MEDS: LISINOPRIL 20 MG TABLET PO SCH (08:33)
[2018-11-01] MEDS: BENZTROPINE MESYLATE 1 MG TABLET PO SCH ×2 (08:33→21:09)
[2018-11-01 16:13] VITALS: BP 128/68
[2018-11-01] MEDS: HALOPERIDOL 10 MG TABLET PO SCH (21:09)
[2018-11-01] MEDS: ZOLPIDEM TARTRATE 10 MG TABLET PO PRN (21:09)
[2018-11-01] MEDS: LORazepam 2 MG TABLET PO PRN (22:34)
[2018-11-01] MEDS: OLANZapine 5 MG RAPDIS TABLET PO PRN (22:34)
[2018-11-02 00:53] VITALS: BP 122/79
[2018-11-02 08:27] VITALS: BP 117/98
[2018-11-02] MEDS: CHOLECALCIFEROL (VIT D3) 2,000 UNITS TABLET PO SCH (08:39)
[2018-11-02] MEDS: HALOPERIDOL 5 MG TABLET PO SCH (08:39)
[2018-11-02] MEDS: LISINOPRIL 20 MG TABLET PO SCH (08:39)
[2018-11-02] MEDS: BENZTROPINE MESYLATE 1 MG TABLET PO SCH ×2 (08:39→20:30)
[2018-11-02] MEDS: DIVALPROEX SODIUM 500 MG ER TABLET PO SCH ×2 (08:39→20:30)
[2018-11-02] MEDS: LORazepam 2 MG TABLET PO PRN (09:41)
[2018-11-02] MEDS: OLANZapine 5 MG RAPDIS TABLET PO PRN (09:41)
[2018-11-02 16:26] VITALS: BP 121/83
[2018-11-02] MEDS: HALOPERIDOL 10 MG TABLET PO SCH (20:30)
[2018-11-02] MEDS: ZOLPIDEM TARTRATE 10 MG TABLET PO PRN (21:34)
[2018-11-03 06:45] VITALS: BP 122/79
[2018-11-03 08:25] VITALS: BP 141/88
[2018-11-03] MEDS: CHOLECALCIFEROL (VIT D3) 2,000 UNITS TABLET PO SCH (09:03)
[2018-11-03] MEDS: DIVALPROEX SODIUM 500 MG ER TABLET PO SCH ×2 (09:03→20:24)
[2018-11-03] MEDS: BENZTROPINE MESYLATE 1 MG TABLET PO SCH ×2 (09:03→20:25)
[2018-11-03] MEDS: LISINOPRIL 20 MG TABLET PO SCH (09:03)
[2018-11-03] MEDS: HALOPERIDOL 5 MG TABLET PO SCH (09:03)
[2018-11-03 16:43] VITALS: BP 87/44
[2018-11-03] MEDS: LORazepam 2 MG TABLET PO PRN (20:24)
[2018-11-03] MEDS: HALOPERIDOL 10 MG TABLET PO SCH (20:24)
[2018-11-03] MEDS: ZOLPIDEM TARTRATE 10 MG TABLET PO PRN (20:24)
[2018-11-04 06:23] VITALS: BP 104/61
[2018-11-04 08:17] VITALS: BP 115/86
[2018-11-04] MEDS: CHOLECALCIFEROL (VIT D3) 2,000 UNITS TABLET PO SCH (08:28)
[2018-11-04] MEDS: BENZTROPINE MESYLATE 1 MG TABLET PO SCH ×2 (08:28→20:43)
[2018-11-04] MEDS: DIVALPROEX SODIUM 500 MG ER TABLET PO SCH ×2 (08:28→20:43)
[2018-11-04] MEDS: HALOPERIDOL 5 MG TABLET PO SCH (08:28)
[2018-11-04] MEDS: LISINOPRIL 20 MG TABLET PO SCH (08:29)
[2018-11-04 16:00] VITALS: BP 113/79
[2018-11-04] MEDS: LORazepam 2 MG TABLET PO PRN ×2 (16:42→20:43)
[2018-11-04] MEDS: OLANZapine 5 MG RAPDIS TABLET PO PRN (16:42)
[2018-11-04] MEDS: HALOPERIDOL 10 MG TABLET PO SCH (20:43)
[2018-11-04] MEDS: ZOLPIDEM TARTRATE 10 MG TABLET PO PRN (20:43)
[2018-11-05 06:59] VITALS: BP 139/88
[2018-11-05 08:14] VITALS: BP 100/56
[2018-11-05] MEDS: HALOPERIDOL 5 MG TABLET PO SCH (08:43)
[2018-11-05] MEDS: CHOLECALCIFEROL (VIT D3) 2,000 UNITS TABLET PO SCH (08:43)
[2018-11-05] MEDS: LISINOPRIL 20 MG TABLET PO SCH (08:43)
[2018-11-05] MEDS: DIVALPROEX SODIUM 500 MG ER TABLET PO SCH ×2 (08:43→20:29)
[2018-11-05] MEDS: BENZTROPINE MESYLATE 1 MG TABLET PO SCH ×2 (08:43→20:29)
[2018-11-05 16:00] VITALS: BP 109/71
[2018-11-05] MEDS: OLANZapine 5 MG RAPDIS TABLET PO PRN (16:23)
[2018-11-05] MEDS: LORazepam 2 MG TABLET PO PRN ×2 (16:23→20:29)
[2018-11-05] MEDS: HALOPERIDOL 10 MG TABLET PO SCH (20:29)
[2018-11-05] MEDS: ZOLPIDEM TARTRATE 10 MG TABLET PO PRN (20:29)
[2018-11-06 00:51] VITALS: BP 101/60
[2018-11-06 08:27] VITALS: BP 109/53
[2018-11-06] MEDS: LISINOPRIL 20 MG TABLET PO SCH (09:00)
[2018-11-06] MEDS: HALOPERIDOL 5 MG TABLET PO SCH (09:46)
[2018-11-06] MEDS: DIVALPROEX SODIUM 500 MG ER TABLET PO SCH ×2 (09:46→20:30)
[2018-11-06] MEDS: CHOLECALCIFEROL (VIT D3) 2,000 UNITS TABLET PO SCH (09:46)
[2018-11-06] MEDS: BENZTROPINE MESYLATE 1 MG TABLET PO SCH ×2 (09:47→20:30)
[2018-11-06] MEDS: LORazepam 2 MG TABLET PO PRN ×2 (16:19→21:22)
[2018-11-06] MEDS: OLANZapine 5 MG RAPDIS TABLET PO PRN (16:19)
[2018-11-06 20:00] VITALS: BP 105/65
[2018-11-06] MEDS: HALOPERIDOL 10 MG TABLET PO SCH (20:30)
[2018-11-06] MEDS: ZOLPIDEM TARTRATE 10 MG TABLET PO PRN (21:22)
[2018-11-07 05:00] VITALS: BP 109/62
[2018-11-07 08:00] VITALS: BP 90/55
[2018-11-07] MEDS: BENZTROPINE MESYLATE 1 MG TABLET PO SCH ×2 (08:11→20:37)
[2018-11-07] MEDS: DIVALPROEX SODIUM 500 MG ER TABLET PO SCH ×2 (08:11→20:37)
[2018-11-07] MEDS: CHOLECALCIFEROL (VIT D3) 2,000 UNITS TABLET PO SCH (08:11)
[2018-11-07] MEDS: HALOPERIDOL 5 MG TABLET PO SCH (08:11)
[2018-11-07] MEDS: LISINOPRIL 20 MG TABLET PO SCH (09:13)
[2018-11-07 13:57] VITALS: BP 119/78
[2018-11-07 16:22] VITALS: BP 114/84
[2018-11-07] MEDS: HALOPERIDOL 10 MG TABLET PO SCH (20:37)
[2018-11-07] MEDS: LORazepam 2 MG TABLET PO PRN (20:37)
[2018-11-07] MEDS: ZOLPIDEM TARTRATE 10 MG TABLET PO PRN (20:37)
[2018-11-08 03:43] VITALS: BP 116/78
[2018-11-08 08:16] VITALS: BP 126/85
[2018-11-08] MEDS: CHOLECALCIFEROL (VIT D3) 2,000 UNITS TABLET PO SCH (09:00)
[2018-11-08] MEDS: HALOPERIDOL 5 MG TABLET PO SCH (09:00)
[2018-11-08] MEDS: DIVALPROEX SODIUM 500 MG ER TABLET PO SCH ×2 (09:00→20:27)
[2018-11-08] MEDS: BENZTROPINE MESYLATE 1 MG TABLET PO SCH ×2 (09:00→20:27)
[2018-11-08] MEDS: LISINOPRIL 20 MG TABLET PO SCH (09:00)
[2018-11-08] MEDS: LORazepam 2 MG TABLET PO PRN (09:00)
[2018-11-08 16:28] VITALS: BP 119/73
[2018-11-08] MEDS: HALOPERIDOL 10 MG TABLET PO SCH (20:27)
[2018-11-08] MEDS: ZOLPIDEM TARTRATE 10 MG TABLET PO PRN (21:08)
[2018-11-09] MEDS: LORazepam 2 MG TABLET PO PRN ×2 (00:15→21:19)
[2018-11-09] MEDS: OLANZapine 5 MG RAPDIS TABLET PO PRN (00:15)
[2018-11-09 00:16] VITALS: BP 129/83
[2018-11-09 08:15] VITALS: BP 129/85
[2018-11-09] MEDS: DIVALPROEX SODIUM 500 MG ER TABLET PO SCH ×2 (09:05→21:20)
[2018-11-09] MEDS: HALOPERIDOL 5 MG TABLET PO SCH (09:05)
[2018-11-09] MEDS: CHOLECALCIFEROL (VIT D3) 2,000 UNITS TABLET PO SCH (09:05)
[2018-11-09] MEDS: BENZTROPINE MESYLATE 1 MG TABLET PO SCH ×2 (09:06→21:20)
[2018-11-09] MEDS: LISINOPRIL 20 MG TABLET PO SCH (09:06)
[2018-11-09 17:22] VITALS: BP 136/71
[2018-11-09] MEDS: HALOPERIDOL 10 MG TABLET PO SCH (21:19)
[2018-11-09] MEDS: ZOLPIDEM TARTRATE 10 MG TABLET PO PRN (21:20)
[2018-11-10 06:38] VITALS: BP 134/82
[2018-11-10 08:42] VITALS: BP 110/72
[2018-11-10] MEDS: LISINOPRIL 20 MG TABLET PO SCH (09:06)
[2018-11-10] MEDS: CHOLECALCIFEROL (VIT D3) 2,000 UNITS TABLET PO SCH (09:06)
[2018-11-10] MEDS: BENZTROPINE MESYLATE 1 MG TABLET PO SCH ×2 (09:06→20:39)
[2018-11-10] MEDS: DIVALPROEX SODIUM 500 MG ER TABLET PO SCH ×2 (09:06→20:39)
[2018-11-10] MEDS: HALOPERIDOL 5 MG TABLET PO SCH (09:06)
[2018-11-10 16:00] VITALS: BP 125/72
[2018-11-10] MEDS: LORazepam 2 MG TABLET PO PRN ×2 (16:33→20:40)
[2018-11-10] MEDS: OLANZapine 5 MG RAPDIS TABLET PO PRN (16:33)
[2018-11-10] MEDS: HALOPERIDOL 10 MG TABLET PO SCH (20:39)
[2018-11-10] MEDS: ZOLPIDEM TARTRATE 10 MG TABLET PO PRN (20:40)
[2018-11-11 05:31] VITALS: BP 124/67
[2018-11-11 08:20] VITALS: BP 112/61
[2018-11-11] MEDS: CHOLECALCIFEROL (VIT D3) 2,000 UNITS TABLET PO SCH (08:38)
[2018-11-11] MEDS: BENZTROPINE MESYLATE 1 MG TABLET PO SCH ×2 (08:38→20:01)
[2018-11-11] MEDS: DIVALPROEX SODIUM 500 MG ER TABLET PO SCH ×2 (08:38→20:01)
[2018-11-11] MEDS: HALOPERIDOL 5 MG TABLET PO SCH (08:38)
[2018-11-11] MEDS: LISINOPRIL 20 MG TABLET PO SCH (08:38)
[2018-11-11 16:20] VITALS: BP 134/84
[2018-11-11] MEDS: HALOPERIDOL 10 MG TABLET PO SCH (20:01)
[2018-11-11] MEDS: ZOLPIDEM TARTRATE 10 MG TABLET PO PRN (20:37)
[2018-11-12 02:45] VITALS: BP 119/82
[2018-11-12] MEDS: LORazepam 2 MG TABLET PO PRN ×3 (02:50→20:38)
[2018-11-12 08:03] VITALS: BP 133/88
[2018-11-12 08:04] VITALS: BP 115/67
[2018-11-12] MEDS: LISINOPRIL 20 MG TABLET PO SCH (09:08)
[2018-11-12] MEDS: DIVALPROEX SODIUM 500 MG ER TABLET PO SCH ×2 (09:08→20:38)
[2018-11-12] MEDS: BENZTROPINE MESYLATE 1 MG TABLET PO SCH ×2 (09:08→20:38)
[2018-11-12] MEDS: HALOPERIDOL 5 MG TABLET PO SCH (09:08)
[2018-11-12] MEDS: CHOLECALCIFEROL (VIT D3) 2,000 UNITS TABLET PO SCH (09:08)
[2018-11-12 16:00] VITALS: BP 116/69
[2018-11-12] MEDS: HALOPERIDOL 10 MG TABLET PO SCH (20:37)
[2018-11-12] MEDS: ZOLPIDEM TARTRATE 10 MG TABLET PO PRN (20:38)
[2018-11-13 00:50] VITALS: BP 120/64
[2018-11-13] MEDS: LORazepam 2 MG TABLET PO PRN ×2 (00:52→17:51)
[2018-11-13] MEDS: HALOPERIDOL 5 MG TABLET PO SCH (09:04)
[2018-11-13] MEDS: BENZTROPINE MESYLATE 1 MG TABLET PO SCH ×2 (09:05→20:56)
[2018-11-13] MEDS: LISINOPRIL 20 MG TABLET PO SCH (09:05)
[2018-11-13] MEDS: CHOLECALCIFEROL (VIT D3) 2,000 UNITS TABLET PO SCH (09:06)
[2018-11-13] MEDS: DIVALPROEX SODIUM 500 MG ER TABLET PO SCH ×2 (09:06→20:56)
[2018-11-13 09:31] VITALS: BP 112/61
[2018-11-13 16:00] VITALS: BP 107/62
[2018-11-13] MEDS: OLANZapine 5 MG RAPDIS TABLET PO PRN (17:51)
[2018-11-13] MEDS: ZOLPIDEM TARTRATE 10 MG TABLET PO PRN (20:56)
[2018-11-13] MEDS: HALOPERIDOL 10 MG TABLET PO SCH (20:56)
[2018-11-14 07:12] VITALS: BP 110/65
[2018-11-14 08:10] VITALS: BP 109/70
[2018-11-14] MEDS: HALOPERIDOL 5 MG TABLET PO SCH (08:39)
[2018-11-14] MEDS: BENZTROPINE MESYLATE 1 MG TABLET PO SCH ×2 (08:39→20:44)
[2018-11-14] MEDS: LISINOPRIL 20 MG TABLET PO SCH (08:39)
[2018-11-14] MEDS: DIVALPROEX SODIUM 500 MG ER TABLET PO SCH ×2 (08:39→20:44)
[2018-11-14] MEDS: CHOLECALCIFEROL (VIT D3) 2,000 UNITS TABLET PO SCH (08:39)
[2018-11-14 16:05] VITALS: BP 114/68
[2018-11-14] MEDS: LORazepam 2 MG TABLET PO PRN ×2 (16:39→20:44)
[2018-11-14] MEDS: OLANZapine 5 MG RAPDIS TABLET PO PRN (16:39)
[2018-11-14] MEDS: HALOPERIDOL 10 MG TABLET PO SCH (20:43)
[2018-11-14] MEDS: ZOLPIDEM TARTRATE 10 MG TABLET PO PRN (20:44)
[2018-11-15 01:13] VITALS: BP 113/78
[2018-11-15 08:20] VITALS: BP 122/72
[2018-11-15] MEDS: LISINOPRIL 20 MG TABLET PO SCH (08:36)
[2018-11-15] MEDS: HALOPERIDOL 5 MG TABLET PO SCH (08:36)
[2018-11-15] MEDS: BENZTROPINE MESYLATE 1 MG TABLET PO SCH ×2 (08:36→21:02)
[2018-11-15] MEDS: DIVALPROEX SODIUM 500 MG ER TABLET PO SCH ×2 (08:36→21:02)
[2018-11-15] MEDS: CHOLECALCIFEROL (VIT D3) 2,000 UNITS TABLET PO SCH (08:37)
[2018-11-15] MEDS: LORazepam 2 MG TABLET PO PRN ×3 (12:20→23:41)
[2018-11-15 16:25] VITALS: BP 117/63
[2018-11-15] MEDS: OLANZapine 5 MG RAPDIS TABLET PO PRN (17:07)
[2018-11-15] MEDS: HALOPERIDOL 10 MG TABLET PO SCH (21:02)
[2018-11-15] MEDS: ZOLPIDEM TARTRATE 10 MG TABLET PO PRN (21:02)
[2018-11-16 00:15] VITALS: BP 118/76
[2018-11-16 08:15] VITALS: BP 129/75
[2018-11-16] MEDS: DIVALPROEX SODIUM 500 MG ER TABLET PO SCH ×2 (08:52→20:09)
[2018-11-16] MEDS: LISINOPRIL 20 MG TABLET PO SCH (08:52)
[2018-11-16] MEDS: BENZTROPINE MESYLATE 1 MG TABLET PO SCH ×2 (08:52→20:09)
[2018-11-16] MEDS: CHOLECALCIFEROL (VIT D3) 2,000 UNITS TABLET PO SCH (08:52)
[2018-11-16] MEDS: HALOPERIDOL 5 MG TABLET PO SCH (08:52)
[2018-11-16 16:52] VITALS: BP 125/61
[2018-11-16] MEDS: HALOPERIDOL 10 MG TABLET PO SCH (20:09)
[2018-11-16] MEDS: LORazepam 2 MG TABLET PO PRN (20:09)
[2018-11-16] MEDS: ZOLPIDEM TARTRATE 10 MG TABLET PO PRN (20:09)
[2018-11-17 07:05] VITALS: BP 129/68
[2018-11-17 08:57] VITALS: BP 102/61
[2018-11-17] MEDS: CHOLECALCIFEROL (VIT D3) 2,000 UNITS TABLET PO SCH (09:05)
[2018-11-17] MEDS: DIVALPROEX SODIUM 500 MG ER TABLET PO SCH ×2 (09:06→20:17)
[2018-11-17] MEDS: BENZTROPINE MESYLATE 1 MG TABLET PO SCH ×2 (09:07→20:16)
[2018-11-17] MEDS: LISINOPRIL 20 MG TABLET PO SCH (09:07)
[2018-11-17] MEDS: HALOPERIDOL 5 MG TABLET PO SCH (09:08)
[2018-11-17] MEDS: LORazepam 2 MG TABLET PO PRN (16:00)
[2018-11-17] MEDS: OLANZapine 5 MG RAPDIS TABLET PO PRN (16:00)
[2018-11-17 16:31] VITALS: BP 115/64
[2018-11-17] MEDS: HALOPERIDOL 10 MG TABLET PO SCH (20:16)
[2018-11-17] MEDS: ZOLPIDEM TARTRATE 10 MG TABLET PO PRN (21:30)
[2018-11-18 02:54] VITALS: BP 132/79
[2018-11-18] MEDS: CHOLECALCIFEROL (VIT D3) 2,000 UNITS TABLET PO SCH (08:24)
[2018-11-18] MEDS: DIVALPROEX SODIUM 500 MG ER TABLET PO SCH ×2 (08:24→21:07)
[2018-11-18] MEDS: BENZTROPINE MESYLATE 1 MG TABLET PO SCH ×2 (08:25→21:07)
[2018-11-18] MEDS: LISINOPRIL 20 MG TABLET PO SCH (08:25)
[2018-11-18] MEDS: HALOPERIDOL 5 MG TABLET PO SCH (08:28)
[2018-11-18 09:31] VITALS: BP 121/78
[2018-11-18 16:00] VITALS: BP 122/85
[2018-11-18] MEDS: ZOLPIDEM TARTRATE 10 MG TABLET PO PRN (21:07)
[2018-11-18] MEDS: HALOPERIDOL 10 MG TABLET PO SCH (21:07)
[2018-11-19] MEDS: HALOPERIDOL 5 MG TABLET PO SCH (09:33)
[2018-11-19] MEDS: LISINOPRIL 20 MG TABLET PO SCH (09:33)
[2018-11-19] MEDS: BENZTROPINE MESYLATE 1 MG TABLET PO SCH ×2 (09:33→20:49)
[2018-11-19] MEDS: DIVALPROEX SODIUM 500 MG ER TABLET PO SCH ×2 (09:33→20:48)
[2018-11-19] MEDS: CHOLECALCIFEROL (VIT D3) 2,000 UNITS TABLET PO SCH (09:34)
[2018-11-19 09:52] VITALS: BP 110/60
[2018-11-19 16:00] VITALS: BP 116/81
[2018-11-19] MEDS: HALOPERIDOL 10 MG TABLET PO SCH (20:47)
[2018-11-19] MEDS: LORazepam 2 MG TABLET PO PRN (20:49)
[2018-11-20 09:28] VITALS: BP 131/81
[2018-11-20] MEDS: LISINOPRIL 20 MG TABLET PO SCH (09:29)
[2018-11-20] MEDS: DIVALPROEX SODIUM 500 MG ER TABLET PO SCH ×2 (09:29→20:40)
[2018-11-20] MEDS: BENZTROPINE MESYLATE 1 MG TABLET PO SCH ×2 (09:29→20:40)
[2018-11-20] MEDS: CHOLECALCIFEROL (VIT D3) 2,000 UNITS TABLET PO SCH (09:29)
[2018-11-20] MEDS: HALOPERIDOL 5 MG TABLET PO SCH (09:29)
[2018-11-20 16:20] VITALS: BP 137/98
[2018-11-20] MEDS: LORazepam 2 MG TABLET PO PRN (18:13)
[2018-11-20] MEDS: QUEtiapine FUMARATE 200 MG TABLET PO SCH (20:39)
[2018-11-20] MEDS: ZOLPIDEM TARTRATE 10 MG TABLET PO PRN (20:40)
[2018-11-21 08:14] VITALS: BP 114/64
[2018-11-21] MEDS: BENZTROPINE MESYLATE 1 MG TABLET PO SCH ×2 (09:45→20:34)
[2018-11-21] MEDS: QUEtiapine FUMARATE 200 MG TABLET PO SCH ×2 (09:45→20:34)
[2018-11-21] MEDS: DIVALPROEX SODIUM 500 MG ER TABLET PO SCH ×2 (09:45→20:34)
[2018-11-21] MEDS: CHOLECALCIFEROL (VIT D3) 2,000 UNITS TABLET PO SCH (09:45)
[2018-11-21] MEDS: LISINOPRIL 20 MG TABLET PO SCH (09:47)
[2018-11-21 17:27] VITALS: BP 113/62
[2018-11-22 05:48] VITALS: BP 115/78
[2018-11-22 08:00] VITALS: BP 123/67
[2018-11-22] MEDS: QUEtiapine FUMARATE 200 MG TABLET PO SCH ×2 (08:58→20:16)
[2018-11-22] MEDS: LISINOPRIL 20 MG TABLET PO SCH (08:58)
[2018-11-22] MEDS: CHOLECALCIFEROL (VIT D3) 2,000 UNITS TABLET PO SCH (08:58)
[2018-11-22] MEDS: BENZTROPINE MESYLATE 1 MG TABLET PO SCH ×2 (08:58→20:16)
[2018-11-22] MEDS: DIVALPROEX SODIUM 500 MG ER TABLET PO SCH ×2 (09:02→20:16)
[2018-11-22 16:24] VITALS: BP 124/70
[2018-11-22] MEDS: ZOLPIDEM TARTRATE 10 MG TABLET PO PRN (21:06)
[2018-11-23] MEDS: DIVALPROEX SODIUM 500 MG ER TABLET PO SCH ×2 (08:36→20:26)
[2018-11-23] MEDS: BENZTROPINE MESYLATE 1 MG TABLET PO SCH ×2 (08:36→20:26)
[2018-11-23] MEDS: QUEtiapine FUMARATE 200 MG TABLET PO SCH ×2 (08:36→20:26)
[2018-11-23] MEDS: LISINOPRIL 20 MG TABLET PO SCH (08:36)
[2018-11-23] MEDS: CHOLECALCIFEROL (VIT D3) 2,000 UNITS TABLET PO SCH (08:37)
[2018-11-23 08:55] VITALS: BP 111/63
[2018-11-23 17:00] VITALS: BP 98/61
[2018-11-24 08:21] VITALS: BP 108/54
[2018-11-24] MEDS: LISINOPRIL 20 MG TABLET PO SCH (09:01)
[2018-11-24] MEDS: CHOLECALCIFEROL (VIT D3) 2,000 UNITS TABLET PO SCH (09:01)
[2018-11-24] MEDS: QUEtiapine FUMARATE 200 MG TABLET PO SCH ×2 (09:01→20:55)
[2018-11-24] MEDS: BENZTROPINE MESYLATE 1 MG TABLET PO SCH ×2 (09:01→20:55)
[2018-11-24] MEDS: DIVALPROEX SODIUM 500 MG ER TABLET PO SCH ×2 (09:01→20:55)
[2018-11-24 16:00] VITALS: BP 115/78
[2018-11-24] MEDS: ZOLPIDEM TARTRATE 10 MG TABLET PO PRN (20:55)
[2018-11-25 00:04] VITALS: BP 118/80
[2018-11-25 08:19] VITALS: BP 130/72
[2018-11-25] MEDS: LISINOPRIL 20 MG TABLET PO SCH (09:10)
[2018-11-25] MEDS: QUEtiapine FUMARATE 200 MG TABLET PO SCH ×2 (09:10→20:36)
[2018-11-25] MEDS: CHOLECALCIFEROL (VIT D3) 2,000 UNITS TABLET PO SCH (09:10)
[2018-11-25] MEDS: BENZTROPINE MESYLATE 1 MG TABLET PO SCH ×2 (09:10→20:36)
[2018-11-25] MEDS: DIVALPROEX SODIUM 500 MG ER TABLET PO SCH ×2 (09:10→20:36)
[2018-11-25 16:00] VITALS: BP 116/68
[2018-11-25] MEDS: ZOLPIDEM TARTRATE 10 MG TABLET PO PRN (20:36)
[2018-11-26 00:31] VITALS: BP 116/77
[2018-11-26 08:05] VITALS: BP 140/72
[2018-11-26] MEDS: CHOLECALCIFEROL (VIT D3) 2,000 UNITS TABLET PO SCH (08:53)
[2018-11-26] MEDS: DIVALPROEX SODIUM 500 MG ER TABLET PO SCH ×2 (08:53→20:41)
[2018-11-26] MEDS: BENZTROPINE MESYLATE 1 MG TABLET PO SCH ×2 (08:54→20:41)
[2018-11-26] MEDS: LISINOPRIL 20 MG TABLET PO SCH (08:54)
[2018-11-26] MEDS: QUEtiapine FUMARATE 200 MG TABLET PO SCH ×2 (08:57→20:41)
[2018-11-26 16:17] VITALS: BP 117/82
[2018-11-26] MEDS: LORazepam 2 MG TABLET PO PRN (20:42)
[2018-11-26] MEDS: ZOLPIDEM TARTRATE 10 MG TABLET PO PRN (20:42)
[2018-11-27 05:53] VITALS: BP 134/82
[2018-11-27 08:45] VITALS: BP 120/61
[2018-11-27] MEDS: BENZTROPINE MESYLATE 1 MG TABLET PO SCH ×2 (08:51→20:34)
[2018-11-27] MEDS: CHOLECALCIFEROL (VIT D3) 2,000 UNITS TABLET PO SCH (08:51)
[2018-11-27] MEDS: QUEtiapine FUMARATE 200 MG TABLET PO SCH ×2 (08:51→20:34)
[2018-11-27] MEDS: LISINOPRIL 20 MG TABLET PO SCH (08:51)
[2018-11-27] MEDS: DIVALPROEX SODIUM 500 MG ER TABLET PO SCH ×2 (08:51→20:34)
[2018-11-27 16:00] VITALS: BP 107/65
[2018-11-27] MEDS: ZOLPIDEM TARTRATE 10 MG TABLET PO PRN (20:34)
[2018-11-28 06:47] VITALS: BP 126/83
[2018-11-28] MEDS: LISINOPRIL 20 MG TABLET PO SCH (08:21)
[2018-11-28] MEDS: QUEtiapine FUMARATE 200 MG TABLET PO SCH ×2 (08:21→20:35)
[2018-11-28] MEDS: CHOLECALCIFEROL (VIT D3) 2,000 UNITS TABLET PO SCH (08:21)
[2018-11-28] MEDS: DIVALPROEX SODIUM 500 MG ER TABLET PO SCH ×2 (08:21→20:34)
[2018-11-28] MEDS: BENZTROPINE MESYLATE 1 MG TABLET PO SCH ×2 (08:21→20:34)
[2018-11-28 08:26] VITALS: BP 135/95
[2018-11-28 16:35] VITALS: BP 126/90
[2018-11-28] MEDS: ZOLPIDEM TARTRATE 10 MG TABLET PO PRN (20:35)
[2018-11-28] MEDS: LORazepam 2 MG TABLET PO PRN (20:35)
[2018-11-29 05:39] VITALS: BP 122/80
[2018-11-29] MEDS: DIVALPROEX SODIUM 500 MG ER TABLET PO SCH ×2 (08:39→20:37)
[2018-11-29] MEDS: CHOLECALCIFEROL (VIT D3) 2,000 UNITS TABLET PO SCH (08:39)
[2018-11-29] MEDS: BENZTROPINE MESYLATE 1 MG TABLET PO SCH ×2 (08:39→20:37)
[2018-11-29] MEDS: LISINOPRIL 20 MG TABLET PO SCH (08:39)
[2018-11-29] MEDS: QUEtiapine FUMARATE 200 MG TABLET PO SCH ×2 (08:39→20:37)
[2018-11-29 09:02] VITALS: BP 128/77
[2018-11-29 16:00] VITALS: BP 128/74
[2018-11-29] MEDS: ZOLPIDEM TARTRATE 10 MG TABLET PO PRN (20:37)
[2018-11-29] MEDS: LORazepam 2 MG TABLET PO PRN (20:37)
[2018-11-30 05:20] VITALS: BP 128/78
[2018-11-30 08:38] VITALS: BP 140/97
[2018-11-30] MEDS: BENZTROPINE MESYLATE 1 MG TABLET PO SCH ×2 (09:13→20:52)
[2018-11-30] MEDS: CHOLECALCIFEROL (VIT D3) 2,000 UNITS TABLET PO SCH (09:13)
[2018-11-30] MEDS: LISINOPRIL 20 MG TABLET PO SCH (09:13)
[2018-11-30] MEDS: DIVALPROEX SODIUM 500 MG ER TABLET PO SCH ×2 (09:13→20:52)
[2018-11-30] MEDS: QUEtiapine FUMARATE 200 MG TABLET PO SCH ×2 (09:13→20:52)
[2018-11-30] MEDS: LORazepam 2 MG TABLET PO PRN (09:14)
[2018-11-30 16:00] VITALS: BP 118/78
[2018-12-01 06:10] VITALS: BP 149/69
[2018-12-01 08:11] VITALS: BP 142/71
[2018-12-01] MEDS: DIVALPROEX SODIUM 500 MG ER TABLET PO SCH ×2 (08:21→20:32)
[2018-12-01] MEDS: QUEtiapine FUMARATE 200 MG TABLET PO SCH ×2 (08:21→20:32)
[2018-12-01] MEDS: BENZTROPINE MESYLATE 1 MG TABLET PO SCH ×2 (08:21→20:32)
[2018-12-01] MEDS: LISINOPRIL 20 MG TABLET PO SCH (08:21)
[2018-12-01] MEDS: CHOLECALCIFEROL (VIT D3) 2,000 UNITS TABLET PO SCH (08:56)
[2018-12-01 16:00] VITALS: BP 103/62
[2018-12-01] MEDS: ZOLPIDEM TARTRATE 10 MG TABLET PO PRN (20:32)
[2018-12-02 05:37] VITALS: BP 114/75
[2018-12-02 08:05] VITALS: BP 152/81
[2018-12-02] MEDS: QUEtiapine FUMARATE 200 MG TABLET PO SCH ×2 (08:52→20:42)
[2018-12-02] MEDS: CHOLECALCIFEROL (VIT D3) 2,000 UNITS TABLET PO SCH (08:52)
[2018-12-02] MEDS: DIVALPROEX SODIUM 500 MG ER TABLET PO SCH ×2 (08:52→20:42)
[2018-12-02] MEDS: LISINOPRIL 20 MG TABLET PO SCH (08:52)
[2018-12-02] MEDS: LORazepam 2 MG TABLET PO PRN (08:53)
[2018-12-02] MEDS: BENZTROPINE MESYLATE 1 MG TABLET PO SCH ×2 (08:55→20:42)
[2018-12-02 16:00] VITALS: BP 125/78
[2018-12-02] MEDS: ZOLPIDEM TARTRATE 10 MG TABLET PO PRN (20:42)
[2018-12-03 06:47] VITALS: BP 115/65
[2018-12-03 08:14] VITALS: BP 129/89
[2018-12-03] MEDS: LISINOPRIL 20 MG TABLET PO SCH (08:24)
[2018-12-03] MEDS: DIVALPROEX SODIUM 500 MG ER TABLET PO SCH ×2 (08:24→20:29)
[2018-12-03] MEDS: QUEtiapine FUMARATE 200 MG TABLET PO SCH ×2 (08:24→20:30)
[2018-12-03] MEDS: CHOLECALCIFEROL (VIT D3) 2,000 UNITS TABLET PO SCH (08:24)
[2018-12-03] MEDS: BENZTROPINE MESYLATE 1 MG TABLET PO SCH ×2 (08:24→20:30)
[2018-12-03 16:01] VITALS: BP 136/77
[2018-12-03] MEDS: ZOLPIDEM TARTRATE 10 MG TABLET PO PRN (20:30)
[2018-12-03] MEDS: LORazepam 2 MG TABLET PO PRN (20:30)
[2018-12-04 05:40] VITALS: BP 128/78
[2018-12-04 08:15] VITALS: BP 142/89
[2018-12-04] MEDS: LISINOPRIL 20 MG TABLET PO SCH (09:00)
[2018-12-04] MEDS: QUEtiapine FUMARATE 200 MG TABLET PO SCH ×2 (09:20→20:14)
[2018-12-04] MEDS: DIVALPROEX SODIUM 500 MG ER TABLET PO SCH ×2 (09:20→20:14)
[2018-12-04] MEDS: CHOLECALCIFEROL (VIT D3) 2,000 UNITS TABLET PO SCH (09:20)
[2018-12-04] MEDS: BENZTROPINE MESYLATE 1 MG TABLET PO SCH ×2 (09:20→20:14)
[2018-12-04] MEDS: LORazepam 2 MG TABLET PO PRN (16:47)
[2018-12-04 16:55] VITALS: BP 118/67
[2018-12-04] MEDS: ZOLPIDEM TARTRATE 10 MG TABLET PO PRN (20:14)
[2018-12-05 06:05] VITALS: BP 124/78
[2018-12-05 08:17] VITALS: BP 116/73
[2018-12-05] MEDS: BENZTROPINE MESYLATE 1 MG TABLET PO SCH ×2 (09:00→20:53)
[2018-12-05] MEDS: LISINOPRIL 20 MG TABLET PO SCH (09:36)
[2018-12-05] MEDS: DIVALPROEX SODIUM 500 MG ER TABLET PO SCH ×2 (09:36→20:53)
[2018-12-05] MEDS: QUEtiapine FUMARATE 200 MG TABLET PO SCH ×2 (09:36→20:53)
[2018-12-05] MEDS: CHOLECALCIFEROL (VIT D3) 2,000 UNITS TABLET PO SCH (09:36)
[2018-12-05 16:22] VITALS: BP 110/62
[2018-12-05] MEDS: LORazepam 2 MG TABLET PO PRN (20:53)
[2018-12-05] MEDS: ZOLPIDEM TARTRATE 10 MG TABLET PO PRN (20:54)
[2018-12-06 00:50] VITALS: BP 132/58
[2018-12-06 08:13] VITALS: BP 115/61
[2018-12-06] MEDS: DIVALPROEX SODIUM 500 MG ER TABLET PO SCH ×2 (08:38→20:33)
[2018-12-06] MEDS: LISINOPRIL 20 MG TABLET PO SCH (08:38)
[2018-12-06] MEDS: QUEtiapine FUMARATE 200 MG TABLET PO SCH ×2 (08:38→20:33)
[2018-12-06] MEDS: CHOLECALCIFEROL (VIT D3) 2,000 UNITS TABLET PO SCH (08:38)
[2018-12-06] MEDS: BENZTROPINE MESYLATE 1 MG TABLET PO SCH ×2 (08:38→20:33)
[2018-12-06 16:24] VITALS: BP 118/70
[2018-12-06] MEDS: ZOLPIDEM TARTRATE 10 MG TABLET PO PRN (20:33)
[2018-12-06] MEDS: LORazepam 2 MG TABLET PO PRN (20:33)
[2018-12-07 00:41] VITALS: BP 114/72
[2018-12-07 08:16] VITALS: BP 101/57
[2018-12-07] MEDS: LISINOPRIL 20 MG TABLET PO SCH (09:00)
[2018-12-07] MEDS: DIVALPROEX SODIUM 500 MG ER TABLET PO SCH ×2 (09:01→20:23)
[2018-12-07] MEDS: BENZTROPINE MESYLATE 1 MG TABLET PO SCH ×2 (09:01→20:23)
[2018-12-07] MEDS: QUEtiapine FUMARATE 200 MG TABLET PO SCH ×2 (09:01→20:23)
[2018-12-07] MEDS: CHOLECALCIFEROL (VIT D3) 2,000 UNITS TABLET PO SCH (09:01)
[2018-12-07 16:11] VITALS: BP 104/66
[2018-12-07] MEDS: LORazepam 2 MG TABLET PO PRN (20:23)
[2018-12-07] MEDS: ZOLPIDEM TARTRATE 10 MG TABLET PO PRN (20:23)
[2018-12-08 04:47] VITALS: BP 108/65
[2018-12-08] MEDS: DIVALPROEX SODIUM 500 MG ER TABLET PO SCH ×2 (08:40→20:26)
[2018-12-08] MEDS: BENZTROPINE MESYLATE 1 MG TABLET PO SCH ×2 (08:41→20:26)
[2018-12-08] MEDS: QUEtiapine FUMARATE 200 MG TABLET PO SCH ×2 (08:41→20:26)
[2018-12-08] MEDS: CHOLECALCIFEROL (VIT D3) 2,000 UNITS TABLET PO SCH (08:41)
[2018-12-08] MEDS: LISINOPRIL 20 MG TABLET PO SCH (08:41)
[2018-12-08 08:46] VITALS: BP 134/83
[2018-12-08 16:00] VITALS: BP 121/79
[2018-12-08] MEDS: ZOLPIDEM TARTRATE 10 MG TABLET PO PRN (20:26)
[2018-12-09 03:05] VITALS: BP 133/88
[2018-12-09 08:18] VITALS: BP 132/81
[2018-12-09] MEDS: DIVALPROEX SODIUM 500 MG ER TABLET PO SCH ×2 (08:25→20:12)
[2018-12-09] MEDS: QUEtiapine FUMARATE 200 MG TABLET PO SCH ×2 (08:25→20:12)
[2018-12-09] MEDS: BENZTROPINE MESYLATE 1 MG TABLET PO SCH ×2 (08:25→20:12)
[2018-12-09] MEDS: CHOLECALCIFEROL (VIT D3) 2,000 UNITS TABLET PO SCH (08:25)
[2018-12-09] MEDS: LISINOPRIL 20 MG TABLET PO SCH (08:26)
[2018-12-09 16:00] VITALS: BP 125/79
[2018-12-09] MEDS: LORazepam 2 MG TABLET PO PRN (21:21)
[2018-12-10 03:27] VITALS: BP 133/95
[2018-12-10 08:20] VITALS: BP 101/60
[2018-12-10] MEDS: BENZTROPINE MESYLATE 1 MG TABLET PO SCH ×2 (08:31→20:36)
[2018-12-10] MEDS: LISINOPRIL 20 MG TABLET PO SCH (08:31)
[2018-12-10] MEDS: QUEtiapine FUMARATE 200 MG TABLET PO SCH ×2 (08:31→20:36)
[2018-12-10] MEDS: CHOLECALCIFEROL (VIT D3) 2,000 UNITS TABLET PO SCH (08:31)
[2018-12-10] MEDS: DIVALPROEX SODIUM 500 MG ER TABLET PO SCH ×2 (08:31→20:36)
[2018-12-10 16:15] VITALS: BP 106/61
[2018-12-11 05:39] VITALS: BP 117/76
[2018-12-11] MEDS: BENZTROPINE MESYLATE 1 MG TABLET PO SCH ×2 (08:24→20:26)
[2018-12-11] MEDS: LISINOPRIL 20 MG TABLET PO SCH ×3 (08:24→09:00)
[2018-12-11] MEDS: QUEtiapine FUMARATE 200 MG TABLET PO SCH ×2 (08:24→20:26)
[2018-12-11] MEDS: DIVALPROEX SODIUM 500 MG ER TABLET PO SCH ×2 (08:24→20:26)
[2018-12-11] MEDS: CHOLECALCIFEROL (VIT D3) 2,000 UNITS TABLET PO SCH (08:25)
[2018-12-11 08:37] VITALS: BP 140/80
[2018-12-11 16:13] VITALS: BP 130/85
[2018-12-11] MEDS: ZOLPIDEM TARTRATE 10 MG TABLET PO PRN (20:26)
[2018-12-12 04:01] VITALS: BP 130/84
[2018-12-12] MEDS: QUEtiapine FUMARATE 200 MG TABLET PO SCH ×2 (08:24→20:12)
[2018-12-12] MEDS: DIVALPROEX SODIUM 500 MG ER TABLET PO SCH ×2 (08:24→20:12)
[2018-12-12] MEDS: CHOLECALCIFEROL (VIT D3) 2,000 UNITS TABLET PO SCH (08:24)
[2018-12-12] MEDS: BENZTROPINE MESYLATE 1 MG TABLET PO SCH ×2 (08:24→20:12)
[2018-12-12] MEDS: LISINOPRIL 20 MG TABLET PO SCH (08:33)
[2018-12-12 08:35] VITALS: BP 124/81
[2018-12-12 17:13] VITALS: BP 134/86
[2018-12-13 00:56] VITALS: BP 138/98
[2018-12-13 08:36] VITALS: BP 121/93
[2018-12-13] MEDS: LISINOPRIL 20 MG TABLET PO SCH (09:00)
[2018-12-13] MEDS: QUEtiapine FUMARATE 200 MG TABLET PO SCH ×2 (09:01→20:34)
[2018-12-13] MEDS: DIVALPROEX SODIUM 500 MG ER TABLET PO SCH ×2 (09:01→20:34)
[2018-12-13] MEDS: CHOLECALCIFEROL (VIT D3) 2,000 UNITS TABLET PO SCH (09:01)
[2018-12-13] MEDS: BENZTROPINE MESYLATE 1 MG TABLET PO SCH ×2 (09:01→20:34)
[2018-12-13 16:19] VITALS: BP 140/85
[2018-12-13] MEDS: LORazepam 2 MG TABLET PO PRN (16:38)
[2018-12-13] MEDS: ZOLPIDEM TARTRATE 10 MG TABLET PO PRN (20:34)
[2018-12-14 05:54] VITALS: BP 132/82
[2018-12-14] MEDS: CHOLECALCIFEROL (VIT D3) 2,000 UNITS TABLET PO SCH (08:16)
[2018-12-14] MEDS: DIVALPROEX SODIUM 500 MG ER TABLET PO SCH ×2 (08:16→20:15)
[2018-12-14] MEDS: BENZTROPINE MESYLATE 1 MG TABLET PO SCH ×2 (08:16→20:15)
[2018-12-14] MEDS: QUEtiapine FUMARATE 200 MG TABLET PO SCH ×2 (08:16→20:15)
[2018-12-14] MEDS: LISINOPRIL 20 MG TABLET PO SCH (08:17)
[2018-12-14 08:25] VITALS: BP 131/90
[2018-12-14 16:42] VITALS: BP 137/84
[2018-12-14] MEDS: ZOLPIDEM TARTRATE 10 MG TABLET PO PRN (20:15)
[2018-12-15 06:34] VITALS: BP 133/87
[2018-12-15] MEDS: QUEtiapine FUMARATE 200 MG TABLET PO SCH ×2 (08:29→20:42)
[2018-12-15] MEDS: BENZTROPINE MESYLATE 1 MG TABLET PO SCH ×2 (08:29→20:42)
[2018-12-15] MEDS: DIVALPROEX SODIUM 500 MG ER TABLET PO SCH ×2 (08:29→20:42)
[2018-12-15] MEDS: CHOLECALCIFEROL (VIT D3) 2,000 UNITS TABLET PO SCH (08:30)
[2018-12-15] MEDS: LISINOPRIL 20 MG TABLET PO SCH (08:30)
[2018-12-15 08:47] VITALS: BP 116/65
[2018-12-15 16:00] VITALS: BP 127/69
[2018-12-16 02:47] VITALS: BP 131/86
[2018-12-16 08:48] VITALS: BP 147/79
[2018-12-16] MEDS: DIVALPROEX SODIUM 500 MG ER TABLET PO SCH ×2 (08:51→20:34)
[2018-12-16] MEDS: BENZTROPINE MESYLATE 1 MG TABLET PO SCH ×2 (08:51→20:34)
[2018-12-16] MEDS: CHOLECALCIFEROL (VIT D3) 2,000 UNITS TABLET PO SCH (08:51)
[2018-12-16] MEDS: LISINOPRIL 20 MG TABLET PO SCH (08:51)
[2018-12-16] MEDS: QUEtiapine FUMARATE 200 MG TABLET PO SCH ×2 (08:51→20:34)
[2018-12-16 16:00] VITALS: BP 139/88
[2018-12-17 03:38] VITALS: BP 117/70
[2018-12-17] MEDS: LISINOPRIL 20 MG TABLET PO SCH ×2 (08:14→09:00)
[2018-12-17] MEDS: QUEtiapine FUMARATE 200 MG TABLET PO SCH ×2 (08:14→21:00)
[2018-12-17] MEDS: DIVALPROEX SODIUM 500 MG ER TABLET PO SCH ×2 (08:14→21:00)
[2018-12-17] MEDS: CHOLECALCIFEROL (VIT D3) 2,000 UNITS TABLET PO SCH (08:14)
[2018-12-17] MEDS: BENZTROPINE MESYLATE 1 MG TABLET PO SCH ×2 (08:14→21:00)
[2018-12-17 08:27] VITALS: BP 106/64
[2018-12-17 16:02] VITALS: BP 123/73
[2018-12-18 01:53] VITALS: BP 123/68
[2018-12-18 08:22] VITALS: BP 102/60
[2018-12-18] MEDS: DIVALPROEX SODIUM 500 MG ER TABLET PO SCH ×2 (08:38→20:12)
[2018-12-18] MEDS: CHOLECALCIFEROL (VIT D3) 2,000 UNITS TABLET PO SCH (08:38)
[2018-12-18] MEDS: BENZTROPINE MESYLATE 1 MG TABLET PO SCH ×2 (08:38→20:12)
[2018-12-18] MEDS: QUEtiapine FUMARATE 200 MG TABLET PO SCH ×2 (08:38→20:12)
[2018-12-18] MEDS: LISINOPRIL 20 MG TABLET PO SCH (08:42)
[2018-12-18 16:13] VITALS: BP 136/91
[2018-12-19 03:04] VITALS: BP 143/85
[2018-12-19] MEDS ORDERED: QUET200T PO (04:54)
[2018-12-19 08:02] VITALS: BP 138/87
[2018-12-19] MEDS: LISINOPRIL 20 MG TABLET PO SCH (09:00)
[2018-12-19] MEDS: BENZTROPINE MESYLATE 1 MG TABLET PO SCH ×2 (09:10→20:36)
[2018-12-19] MEDS: CHOLECALCIFEROL (VIT D3) 2,000 UNITS TABLET PO SCH (09:10)
[2018-12-19] MEDS: DIVALPROEX SODIUM 500 MG ER TABLET PO SCH ×2 (09:10→20:36)
[2018-12-19] MEDS: QUEtiapine FUMARATE 200 MG TABLET PO SCH ×2 (09:10→20:36)
[2018-12-19 16:06] VITALS: BP 137/85
[2018-12-19] MEDS: ZOLPIDEM TARTRATE 10 MG TABLET PO PRN (20:36)
[2018-12-20 02:01] VITALS: BP 128/93
[2018-12-20 08:10] VITALS: BP 132/97
[2018-12-20] MEDS: QUEtiapine FUMARATE 200 MG TABLET PO SCH ×2 (08:30→20:22)
[2018-12-20] MEDS: LISINOPRIL 20 MG TABLET PO SCH ×2 (08:30→08:45)
[2018-12-20] MEDS: DIVALPROEX SODIUM 500 MG ER TABLET PO SCH ×2 (08:30→20:23)
[2018-12-20] MEDS: BENZTROPINE MESYLATE 1 MG TABLET PO SCH ×2 (08:31→20:22)
[2018-12-20] MEDS: CHOLECALCIFEROL (VIT D3) 2,000 UNITS TABLET PO SCH (08:31)
[2018-12-20 16:14] VITALS: BP 136/77
[2018-12-21 06:12] VITALS: BP 116/76
[2018-12-21 08:00] VITALS: BP 123/90
[2018-12-21] MEDS: QUEtiapine FUMARATE 200 MG TABLET PO SCH ×2 (08:36→20:38)
[2018-12-21] MEDS: DIVALPROEX SODIUM 500 MG ER TABLET PO SCH ×2 (08:37→20:38)
[2018-12-21] MEDS: BENZTROPINE MESYLATE 1 MG TABLET PO SCH ×2 (08:37→20:38)
[2018-12-21] MEDS: CHOLECALCIFEROL (VIT D3) 2,000 UNITS TABLET PO SCH (08:37)
[2018-12-21] MEDS: LISINOPRIL 20 MG TABLET PO SCH (08:54)
[2018-12-21 17:37] VITALS: BP 129/73
[2018-12-22 06:17] VITALS: BP 122/72
[2018-12-22] MEDS: CHOLECALCIFEROL (VIT D3) 2,000 UNITS TABLET PO SCH (08:29)
[2018-12-22] MEDS: BENZTROPINE MESYLATE 1 MG TABLET PO SCH (08:29)
[2018-12-22] MEDS: QUEtiapine FUMARATE 200 MG TABLET PO SCH (08:29)
[2018-12-22] MEDS: DIVALPROEX SODIUM 500 MG ER TABLET PO SCH (08:29)
[2018-12-22] MEDS: LISINOPRIL 20 MG TABLET PO SCH (08:30)
[2018-12-22 08:33] VITALS: BP 108/68
== END 2018-12-22 13:15 | DRG 750 ==
LOC: EMS 09:02 → B3A 11:14
DX: F20.0 Paranoid schizophrenia (principal); Z91.19 Patient's noncompliance with other medical treatment and regimen; D72.819 Decreased white blood cell count, unspecified; E55.9 Vitamin D deficiency, unspecified; F15.90 Other stimulant use, unspecified, uncomplicated; K59.00 Constipation, unspecified; I10 Essential (primary) hypertension; F17.210 Nicotine dependence, cigarettes, uncomplicated; R76.11 Nonspecific reaction to tuberculin skin test without active tuberculosis; R45.1 Restlessness and agitation; R45.87 Impulsiveness; Z79.899 Other long term (current) drug therapy; Z88.8 Allergy status to other drugs, medicaments and biological substances
CPT/HCPCS: 96372; J1200; J1630; J2060

== ENCOUNTER 2019-07-30 15:53 | Emergency (ER) | payer MEDICAID, OTHER ==
[~2019-07-30] VITALS: Ht 193 cm; Wt 131.8 kg
[~2019-07-30 15:53] MED LIST changes: +CHOL200016 PO; -CHOL200059 PO; -DSS100 PO; -FOLI1 PO; -HALO10 PO; -HALO100V4 IM; -MULT-1239 PO; +QUET200T PO
[2019-07-30] MEDS ORDERED: LISI-661 PO (16:16)
[2019-07-30] MEDS ORDERED: RISP1 PO (16:16)
[2019-07-30] MEDS ORDERED: OLAN5TAB2 PO (16:16)
[2019-07-30] MEDS ORDERED: TRAZ150 PO (16:16)
[2019-07-30 18:08] VITALS: BP 116/74
== END 2019-07-30 18:12 | disposition home or self-care (01) ==
LOC: EMS 16:01
DX: F20.0 Paranoid schizophrenia (principal); E11.9 Type 2 diabetes mellitus without complications; I10 Essential (primary) hypertension; F17.210 Nicotine dependence, cigarettes, uncomplicated; F12.90 Cannabis use, unspecified, uncomplicated; Z79.899 Other long term (current) drug therapy

== ENCOUNTER 2022-07-14 20:25 | Emergency (ER) | payer OTHER ==
[~2022-07-14] VITALS: Ht 180.3 cm; Wt 84.1 kg
[~2022-07-14 20:25] MED LIST changes: -BENZ1TAB10 PO; +BENZ1TAB96 PO; +DIVA-80 PO; -DIVA500T52 PO; -LISI-662 PO; +LISI-893 PO; +OLAN5TAB52 PO; +RISP1TAB48 PO; +TRAZ150T80 PO
[2022-07-15 00:03] VITALS: BP 136/75
[2022-07-16 11:21] LABS: GLUCOSE,POINT OF CARE 139 MG/DL (70-110)
== END 2022-07-15 05:01 | disposition home or self-care (01) ==
LOC: EMS 20:43
DX: F20.0 Paranoid schizophrenia (principal); L40.9 Psoriasis, unspecified; E11.9 Type 2 diabetes mellitus without complications; F12.90 Cannabis use, unspecified, uncomplicated; F17.210 Nicotine dependence, cigarettes, uncomplicated; I10 Essential (primary) hypertension
CPT/HCPCS: 82962; 99284